=== PATIENT | female | born 1930 | race Caucasian/White ===

== ENCOUNTER 2018-07-27 16:25 | Emergency (ER) | payer MEDICARE, BC ==
[2018-07-27] MEDS ORDERED: Dextrose 5%-NS IV Solution 1000 ML 1,000 ML IV ONE (16:37)
[2018-07-27] MEDS ORDERED: D50W 50 ml Abboject IV ONE ×2 (16:38→17:02)
--- NOTE | 2018-07-27 17:01 | ERPHSYRPT ---
- History of Present Illness Time Seen by Provider: 07/27/18 16:45 Source: patient, family, EMS Exam Limitations: no limitations Patient Subjective Stated Complaint: Pt sister states "I went over to her house and there was some blood on the floor and she was laying on the floor. she had blood coming from the left side of her head and it looked like she hit her nose. ". Medics states "when we got there, she was alert and oriented x 3, skin pwd. Pt had small abrasion noted to left side of her head and her FSSBS was 48, we gave her a tube of oral glucose but could not get a line. Maria R stroke scale was negative, 12 lead unremarkable." Triage Nursing Assessment: Pt alert and oriented X 3, skin pwd. PT speech clear , pt having tremors and states she is cold. pt has good equal strength in all 4 extremeties. IV established immediately and pt was given an amp of D 50 and 5 %dextrose started at 100 mL/hr. Physician History: 87 y/o niddm, hypertensive white female on beta chad metoprolol presents to er via ems after report of pt passing out and falling onto her face. ems arrived at home and pt was alert and oriented but blood glucose of 48. pt was given oral glucose by ems. no iv line placed. pt denies headache but nose hurts. pt denies cp, abd pain, back pain and extremity pain. Occurred: just prior to arrival Reason for Fall: lightheaded Injuries/Pain Location: face Loss of Consciousness: no loss of consciousness Quality: aching Severity of Pain-Max: mild Severity of Pain-Current: mild Modifying Factors: Improves With: nothing Associated Symptoms (Fall): lightheadedness, No abdominal pain, No back pain, No confusion, No chest pain, No dizziness, No extremity injury, No headache, No muscle spasms, No nausea, No neck pain, No ringing in ears, No seizures, No shortness of breath, No slurred speech, No trouble walking, No vomiting, No vision changes Allergies/Adverse Reactions: No Known Drug Allergies Allergy (Verified 08/09/16 09:23) Home Medications: Aspirin 81 mg PO DAILY 08/20/14 [History] Glyburide,Micronized [Glyburide Micronized] 6 mg PO DAILY 08/20/14 [History] Isosorbide Mononitrate [Isosorbide Mononitrate ER] 60 mg PO DAILY 08/20/14 [ History] Pioglitazone 30 mg [Actos 30 MG] 30 mg PO QHS 10/05/15 [History] Ergocalciferol (Vitamin D2) [Vitamin D2] 2,000 unit PO UD 08/15/16 [History] Allopurinol 100 mg [Zyloprim 100 mg] 100 mg PO DAILY 07/27/18 [History] Ferrous Sulfate 325 mg PO TID 07/27/18 [History] HydrALAzine HCL 25 MG TAB [Apresoline 25 MG TABLET] 25 mg PO TID 07/27/18 [History] Metoprolol Tartrate [Lopressor] 50 mg PO BID 07/27/18 [History] Olmesartan/Amlodipin/Hcthiazid [Tribenzor 40-10-25 mg Tablet] 1 each PO DAILY [History] Rosuvastatin Calcium [Crestor] 10 mg PO HS 07/27/18 [History] Sodium Bicarbonate 650 mg PO DAILY 07/27/18 [History] Hx Tetanus, Diphtheria Vaccination/Date Given: No Hx Influenza Vaccination/Date Given: No Hx Pneumococcal Vaccination/Date Given: No Immunizations Up to Date: Yes - Review of Systems Constitutional: No Symptoms, No Fever, No Chills Eyes: No Symptoms, No Discharge, No Eye Pain Ears, Nose, & Throat: No Symptoms, Other (bruised, tender swollen nasal bridge) Respiratory: No Symptoms, No Cough, No Dyspnea, No Dyspnea on Exertion (MARRERO), No Stridor, No Wheezing Cardiac: No Symptoms, No Chest Pain, No Palpitations, No Syncope Abdominal/Gastrointestinal: No Symptoms, No Abdominal Pain, No Nausea, No Vomiting, No Diarrhea Genitourinary Symptoms: No Symptoms, No Dysuria, No Frequency, No Hematuria, No Hesitancy Musculoskeletal: Fall, Injury, No Back Pain, No Neck Pain Skin: No Symptoms Neurological: No Symptoms, No Dizziness, No Headache, No Seizure, No Speech Changes Psychological: No Symptoms, No Alcohol Abuse, No Drug Abuse, No Anxiety Endocrine: No Symptoms Hematologic/Lymphatic: No Symptoms Immunological/Allergic: No Symptoms All Other Systems: Reviewed and Negative - Past Medical History Pertinent Past Medical History: Yes Neurological History: No Pertinent History ENT History: No Pertinent History Cardiac History: Myocardial Infarction (HI) Respiratory History: No Pertinent History Endocrine Medical History: Adrenal Insufficiency, Diabetes Type II Musculoskeletal History: Osteoarthritis GI Medical History: Colitis, GERD, Other History: Renal Disease Psycho-Social History: No Pertinent History Female Reproductive Disorders: No Pertinent History Other Medical History: Pt has been going to kidney doctors, last check up the doctor stated her kidneys were working fine. - Past Surgical History Past Surgical History: Yes Neuro Surgical History: No Pertinent History Cardiac: No Pertinent History Respiratory: No Pertinent History Gastrointestinal: Cholecystectomy Genitourinary: No Pertinent History Musculoskeletal: No Pertinent History Female Surgical History: Hysterectomy Other Surgical History: pt states she had skin cancer removed off her face, hysterectomy, and had an HI during a colonoscopy in the past - Social History Smoking Status: Never smoker Exposure to second hand smoke: Yes Drug Use: none Patient Lives Alone: Yes - Female History Hx Now: No - Nursing Vital Signs Nursing Vital Signs: Initial Vital Signs Temperature 97.3 F 07/27/18 16:32 Pulse Rate 64 07/27/18 16:32 Respiratory Rate 18 07/27/18 16:32 Blood Pressure 180/54 07/27/18 16:32 O2 Sat by Pulse Oximetry 98 07/27/18 16:32 Pain Scale Pain Intensity 0 - Harriet Coma Score Best Eye Response (Harriet): (4) open spontaneously Best Verbal Response (Harriet): (5) oriented Best Motor Response (Mingo): (6) obeys commands Mingo Total: 15 - Physical Exam General Appearance: no apparent distress, alert, anxiety Head Injury: contusions, tenderness (nasal bridge; straight), No active bleeding , No Tillman's Sign Eye Exam: PERRL/EOMI, eyes nml inspection ENT Exam: airway nml, evidence of ENT injury, No dental injury, No clear fluid ( ears), No clear fluid (nose) Neck Exam: supple, trachea midline, full range of motion, normal alignment, normal inspection, No focal neuro deficit, No limited range of motion, No muscle spasm, No paraspinous muscle tender, No pain on movement of neck, No tenderness Respiratory/Chest Exam: normal breath sounds, No chest tenderness, No respiratory distress, No decreased breath sounds, No rhonchi, No wheezing, No accessory muscle use, No rib tenderness Cardiovascular Exam: normal heart sounds, regular rate/rhythm Gastrointestinal Exam: soft, normal bowel sounds, No tenderness, No guarding, No rebound Rectal Exam: not done Back Exam: normal inspection, normal range of motion, No CVA tenderness, No vertebral tenderness Extremity Exam: normal inspection, normal range of motion, capillary refill <3 sec, pelvis stable Neurologic Exam: alert, oriented x 3, cooperative, event av operator II-XII nml as tested, normal mood/affect, nml cerebellar function, nml station & gait Skin Exam: normal color, warm, dry SpO2 Interpretation: normal SpO2: 98 Oxygen Delivery: Room Air - Course Nursing assessment & vital signs reviewed: Yes EKG Interpreted by Me: RATE (60), Sinus Rhythm, NORMAL AXIS, NORMAL INTERVALS, NORMAL QRS, Non-specific ST Changes Ordered Tests: Active Orders 24 hr Category Date Time Status Accucheck STAT Care 07/27/18 17:01 Active Patient Services Clerk STAT Care 07/27/18 17:02 Active Clean Catch Urine Specimen STAT Care 07/27/18 17:01 Active EKG-ER Only STAT Care 07/27/18 17:01 Active IV Insertion STAT Care 07/27/18 17:01 Active FACIAL BONES WO CONTRAST [CT] Stat Exams 07/27/18 17:03 Completed HEAD WITHOUT CONTRAST [CT] Stat Exams 07/27/18 17:01 Completed CBC W DIFF Stat Lab 07/27/18 17:26 Completed CMP Stat Lab 07/27/18 17:26 Completed CULTURE,URINE Stat Lab 07/27/18 18:06 Received UA W/ MICROSCOPIC Stat Lab 07/27/18 18:06 Completed Medication Summary Generic Name Dose Route Start Last Admin Trade Name Freq PRN Reason Stop Dose Admin Dextrose/Sodium Chloride 1,000 mls @ 100 mls/hr 07/27/18 17:30 07/27/18 17:12 Dextrose 5%-Ns Iv Solution 1000 Ml IV 08/26/18 17:29 100 mls/hr .Q10H BRYCE Infusion Ceftriaxone Sodium/Dextrose 1 g in 50 mls @ 100 mls/hr 07/27/18 21:02 21:22 Rocephin 1 Gm-D5w 50 Ml Bag IV 07/27/18 21:31 Infused STAT STA Infusion Discontinued Medications Generic Name Dose Route Start Last Admin Trade Name Freq PRN Reason Stop Dose Admin Dextrose Confirm 07/27/18 16:38 D50w 50 Ml Abboject Administered 07/27/18 16:39 Dose 50 ml IV .STK-MED ONE Dextrose 25 ml 07/27/18 17:02 07/27/18 17:07 D50w 50 Ml Abboject IV 07/27/18 17:03 25 ml STAT ONE Administration Dextrose/Sodium Chloride Confirm 07/27/18 16:37 Dextrose 5%-Ns Iv Solution 1000 Ml Administered 07/27/18 16:38 Dose 1,000 mls @ ud IV .STK-MED ONE Ceftriaxone Sodium/Dextrose Confirm 07/27/18 21:11 Rocephin 1 Gm-D5w 50 Ml Bag Administered 07/27/18 21:12 Dose 1 g in 50 mls @ ud IV .STK-MED ONE Lab/Rad Data: Laboratory Result Diagrams 07/27/18 17:26 07/27/18 17:26 Laboratory Results 07/27/18 07/27/18 07/27/18 Range/Units 18:06 17:26 17:26 WBC 8.8 (4.0-10.5) K/mm3 RBC 3.18 L (4.1-5.4) M/mm3 Hgb 10.5 L (12.0-16.0) gm/dl Hct 32.3 L (35-47) % MCV 101.6 H (78-100) fl MCH 33.0 H (26-32) pg MCHC 32.5 (32-36) g/dl RDW 13.9 (11.5-14.0) % Plt Count 162 (150-450) K/mm3 MPV 11.0 H (6-9.5) fl Gran % 82.4 H (36.0-66.0) % Eos # (Auto) 0.10 (0-0.5) Absolute Lymphs (auto) 0.90 L (1.0-4.6) Absolute Monos (auto) 0.51 (0.0-1.3) Lymphocytes % 10.2 L (24.0-44.0) % Monocytes % 5.8 (0.0-12.0) % Eosinophils % 1.1 (0.00-5.0) % Basophils % 0.5 (0.0-0.4) % Absolute Granulocytes 7.24 H (1.4-6.9) Basophils # 0.04 (0-0.4) Sodium 140 (137-145) mmol/L Potassium 4.6 (3.5-5.1) mmol/L Chloride 113 H (98-107) mmol/L Carbon Dioxide 15 L* (22-30) mmol/L Anion Gap 17.1 H (5-15) MEQ/L BUN 70 H (7-17) mg/dL Creatinine 2.05 H (0.52-1.04) mg/dL Estimated GFR 24.3 ML/MIN Glucose 267 H (74-106) mg/dL Calcium 8.8 (8.4-10.2) mg/dL Total Bilirubin 0.20 (0.2-1.3) mg/dL AST 21 (14-36) U/L ALT 15 (0-35) U/L Alkaline Phosphatase 100 (38-126) U/L Serum Total Protein 6.5 (6.3-8.2) g/dL Albumin 3.8 (3.5-5.0) g/dL Ur Collection Type CATH Urine Color YELLOW (YELLOW) Urine Appearance HAZY (CLEAR) Urine pH 5.0 (5-6) Ur Specific [place] 1.015 (1.005-1.025) Urine Protein 30 (Negative) Urine Ketones NEGATIVE (NEGATIVE) Urine Blood NEGATIVE (0-5) [place]/ul Urine Nitrite NEGATIVE (NEGATIVE) Urine Bilirubin NEGATIVE (NEGATIVE) Urine Urobilinogen NORMAL (0-1) mg/dL Ur Leukocyte Esterase 1+ (NEGATIVE) Urine Microscopic RBC 2-5 (0-2) /HPF Urine Microscopic WBC 5-10 (0-5) /HPF Ur Epithelial Cells MODERATE (FEW) /HPF Amorphous Crystals MANY (NEGATIVE) /HPF Urine Bacteria MODERATE (NEGATIVE) /HPF Urine Mucus SLIGHT (NEGATIVE) /HPF Urine Culture Reflexed YES (NO) Urine Glucose 100 (NEGATIVE) mg/dL Specimen Received 07/27/[address] scan head and face reveal no acute process - Progress Progress: improved, re-examined Progress Note: 07/27/18 21:24 pt moved herself from bed to bedside commode with ease, no dizziness. pts vss. pts repeat blood glucose is 187. pt states she feels pretty. 07/27/18 21:34 pt wants to go home. sister is willing to take pt to her home to observe. pt has not eaten since this am. will give meal now. if pt julee well and vss will discharge to home Counseled pt/family regarding: lab results, diagnosis, need for follow-up, rad results - Departure Time of Disposition: 21:37 Departure Disposition: Home Clinical Impression: Hypoglycemia, UTI (urinary tract infection) Condition: Stable Critical Care Time: No Referrals: MARLO BROOKS MD [Primary Care Provider] - Additional Instructions: drink plenty of fluids. monitor your blood glucose closely. do not take your diabetic medications unless you are eating well. call your primary doctor tomorrow for further management Prescriptions: Ciprofloxacin [Cipro 500 MG] 500 mg PO BID #14 tablet
[2018-07-27 17:30] LABS: BASOPHIL % 0.5 % (0.0-0.4); Basophil (Absolute #) 0.04 (0-0.4); Eosinophil % 1.1 % (0.00-5.0); Granulocyte Absolute (ANC) 7.24 (1.4-6.9); Granulocytes % 82.4 % (36.0-66.0); Hematocrit 32.3 % (35-47); Hemoglobin 10.5 gm/dl (12.0-16.0); Lymphocytes % 10.2 % (24.0-44.0); Mean Cell Volume 101.6 fl (78-100); Mean Corpuscular Hgb Concent. 32.5 g/dl (32-36); Monocyte (Absolute #) 0.51 (0.0-1.3); Monocytes % 5.8 % (0.0-12.0); Platelet Count 162 K/mm3 (150-450); Red Blood Count 3.18 M/mm3 (4.1-5.4); Red Cell Distribution Width 13.9 % (11.5-14.0); White Blood Count 8.8 K/mm3 (4.0-10.5)
[2018-07-27] MEDS ORDERED: Dextrose 5%-NS IV Solution 1000 ML 1,000 ML IV SCH (17:30)
[2018-07-27 17:43] LABS: ALBUMIN 3.8 g/dL (3.5-5.0); ANION GAP 17.1 MEQ/L (5-15); BILIRUBIN,TOTAL 0.2 mg/dL (0.2-1.3); Calcium 8.8 mg/dL (8.4-10.2); Creatinine 1 2.05 mg/dL (0.52-1.04); Potassium 4.6 mmol/L (3.5-5.1); Total Protein 6.5 g/dL (6.3-8.2)
[2018-07-27 18:55] LABS: Appearance HAZY (CLEAR)
[2018-07-27 18:56] LABS: Amourphous Crystal MANY /HPF (NEGATIVE); Bacteria MODERATE /HPF (NEGATIVE); Bilirubin NEGATIVE (NEGATIVE); Blood NEGATIVE Ery/ul (0-5); Epithelial Cells MODERATE /HPF (FEW); Glucose 100 mg/dL (NEGATIVE); Ketones NEGATIVE (NEGATIVE); Leukocyte Esterase 1+ (NEGATIVE); Mucus SLIGHT /HPF (NEGATIVE); Nitrite NEGATIVE (NEGATIVE); Protein,Urine Dip 30 (Negative); Specific Gravity 1.015 (1.005-1.025); Urobilinogen NORMAL mg/dL (0-1)
[2018-07-27 20:05] VITALS: BP 182/60; PULSE 59; O2SAT 98
--- NOTE | 2018-07-27 20:25 | XRAY ---
Indication: Pain following syncopal fall. Multiple contiguous axial images obtained through the head without contrast. Comparison: None Images through the base of the brain slightly degraded by motion artifact. Age-appropriate global atrophy. No acute intracranial hemorrhage, abnormal extra-axial fluid collection, or mass effect. Fourth ventricle is midline without hydrocephalus. Kirby-white matter differentiation preserved. Bony calvarium intact. Minimal mucosal thickening of the both maxillary sinuses with tiny left maxillary sinus fluid leveling. Mastoid air cells are clear. CT facial bones reported separately. Impression: Minimal motion artifact. No acute intracranial abnormalities. Minimal paranasal sinus disease. Comment: Preliminary interpretation was made by [facility]. No critical discrepancy. CTDI 61.17
--- NOTE | 2018-07-27 20:29 | XRAY ---
Indication: Nose pain following syncopal fall. Multiple contiguous axial images obtained through the facial bones. Sagittal and coronal reformatted images obtained. Comparison: None No acute fracture, suspicious bony lesions, or radiopaque foreign body. Orbits including roof, peñaloza, and floors are intact. Minimal mucosal thickening of both maxillary sinuses with tiny left maxillary sinus fluid leveling. Remaining paranasal sinuses and nasal passages are clear. Mild nasal septal deviation to the left. Previous bilateral cataract surgery and mild bilateral scattered carotid calcifications. Remaining visualized noncontrasted soft tissues unremarkable. Underlying cervical spine intact with mild degenerative changes. CT head reported separately. Impression: 1. Negative acute fracture. 2. Incidental paranasal sinus disease and nasal septal deviation. Comment: Preliminary interpretation was made by [facility]. No critical discrepancy. CTDI 59.47
[2018-07-27] MEDS ORDERED: ROCEPHIN 1 Gm-D5w 50 ml Bag** 1 G/50 ML IVPB IV STA (21:02)
[2018-07-27] MEDS ORDERED: ROCEPHIN 1 Gm-D5w 50 ml Bag** 1 G/50 ML IVPB IV ONE (21:11)
== END 2018-07-27 22:33 | disposition home or self-care (01) ==
LOC: ED 16:25
DX: E11.649 Type 2 diabetes mellitus with hypoglycemia without coma (principal); R42 Dizziness and giddiness; J34.89 Other specified disorders of nose and nasal sinuses; Z79.899 Other long term (current) drug therapy; W19.XXXA Unspecified fall, initial encounter; Y92.009 Unspecified place in unspecified non-institutional (private) residence as the place of occurrence of the external cause
CPT/HCPCS: 36000; 36415; 70450; 70486; 80053; 81000; 82962; 85025; 87086; 93005; 93041; 96360; 96361; 96365; 96374; 99285; P9612; J0696

== ENCOUNTER 2018-08-03 07:58 | Inpatient (IN) | payer MEDICARE, BC ==
--- NOTE | 2018-08-03 08:19 | ERPHSYRPT ---
- History of Present Illness Time Seen by Provider: 08/03/18 08:12 Source: patient, EMS Exam Limitations: no limitations Physician History: The patient is an 87-year-old female brought in by ambulance from home where she complains of being weak since yesterday. EMS gave 1 amp of dextrose because pt's BG was 70. She denies pain. She denies shortness of breath. She denies nausea or vomiting today. Yesterday she was nauseated. She hasn't had a bowel movement in several days. She is chilled. She denies cough. Last Saturday she fell at home and was seen in the ER. She was sent home on the same day. She did not follow-up with primary medical doctor. Her past medical history significant for CAD, cardiac stent, hypertension, gout, diabetes, kidney stent, hysterectomy, and cholecystectomy. Timing/Duration: yesterday, gradual onset, worse Severity: severe Modifying Factors: Improves With: nothing Associated Symptoms: nausea, chills, weakness, No abdominal pain, No shortness of breath, No cough, No chest pain, No loss of appetite, No syncope Allergies/Adverse Reactions: No Known Drug Allergies Allergy (Verified 08/03/18 08:15) Home Medications: Aspirin 81 mg PO DAILY 08/20/14 [History] Glyburide,Micronized [Glyburide Micronized] 6 mg PO DAILY 08/20/14 [History] Isosorbide Mononitrate [Isosorbide Mononitrate ER] 60 mg PO DAILY 08/20/14 [ History] Pioglitazone 30 mg [Actos 30 MG] 30 mg PO QHS 10/05/15 [History] Ergocalciferol (Vitamin D2) [Vitamin D2] 2,000 unit PO UD 08/15/16 [History] Allopurinol 100 mg [Zyloprim 100 mg] 100 mg PO DAILY 07/27/18 [History] Ferrous Sulfate 325 mg PO TID 07/27/18 [History] HydrALAzine HCL 25 MG TAB [Apresoline 25 MG TABLET] 25 mg PO TID 07/27/18 [History] Metoprolol Tartrate [Lopressor] 50 mg PO BID 07/27/18 [History] Olmesartan/Amlodipin/Hcthiazid [Tribenzor 40-10-25 mg Tablet] 1 each PO DAILY [History] Rosuvastatin Calcium [Crestor] 10 mg PO HS 07/27/18 [History] Sodium Bicarbonate 650 mg PO DAILY 07/27/18 [History] Hx Tetanus, Diphtheria Vaccination/Date Given: No Hx Influenza Vaccination/Date Given: No Hx Pneumococcal Vaccination/Date Given: No - Review of Systems Constitutional: Chills, Weakness Eyes: No Symptoms Ears, Nose, & Throat: No Symptoms Respiratory: No Cough, No Dyspnea Cardiac: No Chest Pain, No Edema, No Syncope Abdominal/Gastrointestinal: No Abdominal Pain, No Nausea, No Vomiting, No Diarrhea Genitourinary Symptoms: No Dysuria Musculoskeletal: No Back Pain, No Neck Pain Skin: No Rash Neurological: No Dizziness, No Focal Weakness, No Sensory Changes Psychological: No Symptoms Endocrine: No Symptoms Hematologic/Lymphatic: No Symptoms Immunological/Allergic: No Symptoms All Other Systems: Reviewed and Negative - Past Medical History Pertinent Past Medical History: Yes Neurological History: No Pertinent History ENT History: No Pertinent History Cardiac History: Myocardial Infarction ([place]) Respiratory History: No Pertinent History Endocrine Medical History: Adrenal Insufficiency, Diabetes Type II Musculoskeletal History: Osteoarthritis GI Medical History: Colitis, GERD, Other History: Renal Disease Psycho-Social History: No Pertinent History Female Reproductive Disorders: No Pertinent History Other Medical History: Pt has been going to kidney doctors, last check up the doctor stated her kidneys were working fine. - Past Surgical History Past Surgical History: Yes Neuro Surgical History: No Pertinent History Cardiac: No Pertinent History Respiratory: No Pertinent History Gastrointestinal: Cholecystectomy Genitourinary: No Pertinent History Musculoskeletal: No Pertinent History Female Surgical History: Hysterectomy Other Surgical History: pt states she had skin cancer removed off her face, hysterectomy, and had an [place] during a colonoscopy in the past - Social History Smoking Status: Never smoker Exposure to second hand smoke: Yes Drug Use: none Patient Lives Alone: Yes - Nursing Vital Signs Nursing Vital Signs: Initial Vital Signs Temperature 93.3 F 08/03/18 07:59 Pulse Rate 68 08/03/18 07:59 Respiratory Rate 20 08/03/18 07:59 Blood Pressure 197/79 08/03/18 07:59 O2 Sat by Pulse Oximetry 99 08/03/18 07:59 Pain Scale Pain Intensity 0 - Physical Exam General Appearance: moderate distress Eye Exam: PERRL/EOMI, eyes nml inspection Ears, Nose, Throat Exam: normal ENT inspection, TMs normal, pharynx normal, moist mucous membranes Neck Exam: normal inspection, non-tender, supple, full range of motion Respiratory Exam: normal breath sounds, lungs clear, No respiratory distress Cardiovascular Exam: regular rate/rhythm, normal heart sounds, normal peripheral pulses Gastrointestinal/Abdomen Exam: soft, normal bowel sounds, No tenderness, No mass Pelvic Exam: not done Rectal Exam: not done Back Exam: normal inspection, normal range of motion, No CVA tenderness, No vertebral tenderness Extremity Exam: normal inspection, normal range of motion, pelvis stable Neurologic Exam: alert, oriented x 3, cooperative, normal mood/affect, nml cerebellar function, nml station & gait, sensation nml, No motor deficits Skin Exam: normal color, other (cool), No warm Lymphatic Exam: No adenopathy SpO2 Interpretation: normal Oxygen Delivery: Room Air - Course EKG Interpreted by Me: RATE, Sinus Rhythm, NORMAL AXIS, NORMAL INTERVALS, NORMAL QRS, NORMAL ST-T, Other (no change comp to EKG 07/27/18.) - Radiology Exams Chest X-ray Interpretation: Interpreted by me, Negative (comp 2V chest 08/09/16.) Ordered Tests: Active Orders 24 hr Category Date Time Status Cath for Specimen-Straight STAT Care 08/03/18 08:25 Active EKG-ER Only STAT Care 08/03/18 08:24 Active IV Insertion STAT Care 08/03/18 08:24 Active 1800 Calorie ADA Diet 08/03/18 Lunch Active CHEST 1 VIEW (PORTABLE) Stat Exams 08/03/18 08:40 Completed BLOOD CULTURE Stat Lab 08/03/18 09:05 Received CBC W DIFF Stat Lab 08/03/18 08:30 Completed CMP Stat Lab 08/03/18 08:24 Completed CULTURE,URINE Stat Lab 08/03/18 08:54 Received LIPASE Stat Lab 08/03/18 08:24 Completed Lactic Acid Stat Lab 08/03/18 08:30 Completed TROPONIN Q3H Lab 08/03/18 08:30 Completed TROPONIN Q3H Lab 08/03/18 11:30 Ordered TROPONIN Q3H Lab 08/03/18 14:30 Ordered TROPONIN Q3H Lab 08/03/18 17:30 Ordered TROPONIN Q3H Lab 08/03/18 20:30 Ordered UA W/ MICROSCOPIC Stat Lab 08/03/18 08:54 Completed Medication Summary Discontinued Medications Generic Name Dose Route Start Last Admin Trade Name Danielle PRN Reason Stop Dose Admin Sodium Chloride 500 mls @ 999 mls/hr 08/03/18 08:24 08/03/18 08:33 Sodium Chloride 0.9% 1000 Ml IV 08/03/18 08:54 999 mls/hr .Q31M STA Administration Sodium Chloride Confirm 08/03/18 08:29 Sodium Chloride 0.9% 1000 Ml Administered 08/03/18 08:30 Dose 1,000 mls @ ud .ROUTE .STK-MED ONE Ondansetron HCl 4 mg 08/03/18 08:24 08/03/18 08:34 Zofran 4 Mg/2 Ml Vial IV 08/03/18 08:25 4 mg STAT ONE Administration Ondansetron HCl Confirm 08/03/18 08:29 Zofran 4 Mg/2 Ml Vial Administered 08/03/18 08:30 Dose 4 mg .ROUTE .STK-MED ONE Lab/Rad Data: Laboratory Result Diagrams 08/03/18 08:30 08/03/18 08:24 Laboratory Results 08/03/18 08/03/18 08/03/18 Range/Units 08:54 08:30 08:30 WBC (4.0-10.5) K/mm3 RBC (4.1-5.4) M/mm3 Hgb (12.0-16.0) gm/dl Hct (35-47) % MCV (78-100) fl MCH (26-32) pg MCHC (32-36) g/dl RDW (11.5-14.0) % Plt Count (150-450) K/mm3 MPV (6-9.5) fl Gran % (36.0-66.0) % Eos # (Auto) (0-0.5) Absolute Lymphs (auto) (1.0-4.6) Absolute Monos (auto) (0.0-1.3) Lymphocytes % (24.0-44.0) % Monocytes % (0.0-12.0) % Eosinophils % (0.00-5.0) % Basophils % (0.0-0.4) % Absolute Granulocytes (1.4-6.9) Basophils # (0-0.4) Sodium (137-145) mmol/L Potassium (3.5-5.1) mmol/L Chloride (98-107) mmol/L Carbon Dioxide (22-30) mmol/L Anion Gap (5-15) MEQ/L BUN (7-17) mg/dL Creatinine (0.52-1.04) mg/dL Estimated GFR ML/MIN Glucose (74-106) mg/dL Lactic Acid 0.8 (0.4-2.0) Calcium (8.4-10.2) mg/dL Total Bilirubin (0.2-1.3) mg/dL AST (14-36) U/L ALT (0-35) U/L Alkaline Phosphatase (38-126) U/L Troponin I < 0.012 (0.000-0.034) ng/mL Serum Total Protein (6.3-8.2) g/dL Albumin (3.5-5.0) g/dL Lipase (23-300) U/L Ur Collection Type CATH Urine Color YELLOW (YELLOW) Urine Appearance CLOUDY (CLEAR) Urine pH 5.0 (5-6) Ur Specific [place] 1.015 (1.005-1.025) Urine Protein 300 (Negative) Urine Ketones NEGATIVE (NEGATIVE) Urine Blood NEGATIVE (0-5) [place]/ul Urine Nitrite NEGATIVE (NEGATIVE) Urine Bilirubin NEGATIVE (NEGATIVE) Urine Urobilinogen NORMAL (0-1) mg/dL Ur Leukocyte Esterase 2+ (NEGATIVE) Urine Microscopic RBC 0-2 (0-2) /HPF Urine Microscopic WBC 2-5 (0-5) /HPF Ur Epithelial Cells MODERATE (FEW) /HPF Amorphous Crystals MODERATE (NEGATIVE) /HPF Urine Bacteria MODERATE (NEGATIVE) /HPF Urine Mucus SLIGHT (NEGATIVE) /HPF Urine Culture Reflexed YES (NO) Urine Glucose NEGATIVE (NEGATIVE) mg/dL 08/03/18 08/03/18 Range/Units 08:30 08:24 WBC 9.9 (4.0-10.5) K/mm3 RBC 3.08 L (4.1-5.4) M/mm3 Hgb 10.3 L (12.0-16.0) gm/dl Hct 31.1 L (35-47) % MCV 101.0 H (78-100) fl MCH 33.4 H (26-32) pg MCHC 33.1 (32-36) g/dl RDW 14.2 H (11.5-14.0) % Plt Count 156 (150-450) K/mm3 MPV 11.0 H (6-9.5) fl Gran % 82.1 H (36.0-66.0) % Eos # (Auto) 0.02 (0-0.5) Absolute Lymphs (auto) 0.85 L (1.0-4.6) Absolute Monos (auto) 0.89 (0.0-1.3) Lymphocytes % 8.6 L (24.0-44.0) % Monocytes % 9.0 (0.0-12.0) % Eosinophils % 0.2 (0.00-5.0) % Basophils % 0.1 (0.0-0.4) % Absolute Granulocytes 8.15 H (1.4-6.9) Basophils # 0.01 (0-0.4) Sodium 141 (137-145) mmol/L Potassium 4.3 (3.5-5.1) mmol/L Chloride 112 H (98-107) mmol/L Carbon Dioxide 15 L* (22-30) mmol/L Anion Gap 17.6 H (5-15) MEQ/L BUN 70 H (7-17) mg/dL Creatinine 3.02 H (0.52-1.04) mg/dL Estimated GFR 15.6 ML/MIN Glucose 113 H (74-106) mg/dL Lactic Acid (0.4-2.0) Calcium 9.4 (8.4-10.2) mg/dL Total Bilirubin 0.30 (0.2-1.3) mg/dL AST 25 (14-36) U/L ALT 16 (0-35) U/L Alkaline Phosphatase 91 (38-126) U/L Troponin I (0.000-0.034) ng/mL Serum Total Protein 7.4 (6.3-8.2) g/dL Albumin 4.2 (3.5-5.0) g/dL Lipase 78 (23-300) U/L Ur Collection Type Urine Color (YELLOW) Urine Appearance (CLEAR) Urine pH (5-6) Ur Specific [place] (1.005-1.025) Urine Protein (Negative) Urine Ketones (NEGATIVE) Urine Blood (0-5) [place]/ul Urine Nitrite (NEGATIVE) Urine Bilirubin (NEGATIVE) Urine Urobilinogen (0-1) mg/dL Ur Leukocyte Esterase (NEGATIVE) Urine Microscopic RBC (0-2) /HPF Urine Microscopic WBC (0-5) /HPF Ur Epithelial Cells (FEW) /HPF Amorphous Crystals (NEGATIVE) /HPF Urine Bacteria (NEGATIVE) /HPF Urine Mucus (NEGATIVE) /HPF Urine Culture Reflexed (NO) Urine Glucose (NEGATIVE) mg/dL - Progress Progress: improved Discussed with : Jim Will see patient in: hospital (observation) Counseled pt/family regarding: lab results, diagnosis, rad results - Departure Time of Disposition: 11:01 Departure Disposition: Observation (per Dr Brooks) Clinical Impression: Weakness, Chronic renal insufficiency Condition: Stable Critical Care Time: No Referrals: MARLO BROOKS MD [Primary Care Provider] -
[2018-08-03] MEDS ORDERED: Zofran 4 MG/2 ML VIAL IV ONE (08:24)
[2018-08-03] MEDS ORDERED: Zofran 4 MG/2 ML VIAL ONE (08:29)
[2018-08-03] MEDS ORDERED: Sodium Chloride 0.9% 1000 ML 1,000 ML ONE (08:29)
[2018-08-03 08:34] LABS: BASOPHIL % 0.1 % (0.0-0.4); Basophil (Absolute #) 0.01 (0-0.4); Eosinophil % 0.2 % (0.00-5.0); Eosinophil (Absolute #) 0.02 (0-0.5); Granulocyte Absolute (ANC) 8.15 (1.4-6.9); Granulocytes % 82.1 % (36.0-66.0); Hematocrit 31.1 % (35-47); Hemoglobin 10.3 gm/dl (12.0-16.0); Lymphocyte (Absolute #) 0.85 (1.0-4.6); Lymphocytes % 8.6 % (24.0-44.0); Mean Corpuscular Hemoglobin 33.4 pg (26-32); Mean Corpuscular Hgb Concent. 33.1 g/dl (32-36); Monocyte (Absolute #) 0.89 (0.0-1.3); Platelet Count 156 K/mm3 (150-450); Red Blood Count 3.08 M/mm3 (4.1-5.4); Red Cell Distribution Width 14.2 % (11.5-14.0); White Blood Count 9.9 K/mm3 (4.0-10.5)
[2018-08-03 08:37] LABS: ALBUMIN 4.2 g/dL (3.5-5.0); ANION GAP 17.6 MEQ/L (5-15); BILIRUBIN,TOTAL 0.3 mg/dL (0.2-1.3); Calcium 9.4 mg/dL (8.4-10.2); Creatinine 1 3.02 mg/dL (0.52-1.04); Potassium 4.3 mmol/L (3.5-5.1); Total Protein 7.4 g/dL (6.3-8.2)
[2018-08-03 10:11] LABS: Appearance CLOUDY (CLEAR); Glucose NEGATIVE (NEGATIVE); Ketones NEGATIVE (NEGATIVE); Leukocyte Esterase 2+ (NEGATIVE); Nitrite NEGATIVE (NEGATIVE); Protein,Urine Dip 300 (Negative); Specific Gravity 1.015 (1.005-1.025)
[2018-08-03 10:12] LABS: Amourphous Crystal MODERATE /HPF (NEGATIVE); Bacteria MODERATE /HPF (NEGATIVE); Bilirubin NEGATIVE (NEGATIVE); Blood NEGATIVE Ery/ul (0-5); Epithelial Cells MODERATE /HPF (FEW); Mucus SLIGHT /HPF (NEGATIVE); RBC 0-2 /HPF (0-2); Urobilinogen NORMAL mg/dL (0-1)
--- NOTE | 2018-08-03 10:52 | XRAY ---
Indication: Weakness. Low blood sugar. Comparison: August 09, 2016. Portable chest slightly less inflated and remains clear. Heart and mediastinal structures within normal limits for AP portable technique. Bony thorax intact again with mild osteopenia and degenerative changes. No new/acute findings.
[2018-08-03] MEDS: Sodium Chloride 0.9% 1000 ML 1,000 ML IV SCH (11:30)
[2018-08-03] MEDS ORDERED: Zofran 4 MG/2 ML VIAL IV PRN (11:47)
[2018-08-03] MEDS ORDERED: TYLENOL 325 MG PO PRN (11:47)
[2018-08-03] MEDS: ROCEPHIN 1 Gm-D5w 50 ml Bag** 1 G/50 ML IVPB IV SCH (13:22)
[2018-08-03] MEDS: ENOXAPARIN SODIUM SQ SCH (15:31)
[2018-08-03] MEDS: Benicar 20 MG PO SCH (15:32)
[2018-08-03] MEDS: Apresoline 25 MG TABLET PO SCH ×2 (15:32→21:25)
[2018-08-03] MEDS: ECOTRIN 81 MG PO SCH (15:32)
[2018-08-03] MEDS: Imdur 60MG PO SCH (15:32)
[2018-08-03] MEDS: NORVASC 5 MG PO SCH (15:33)
[2018-08-03] MEDS: hydroDIURIL 25 MG PO SCH (15:33)
[2018-08-03] MEDS: ZYLOPRIM 100 MG PO SCH (15:33)
[2018-08-03] MEDS: Glynase 3 MG PO SCH (15:33)
[2018-08-03] MEDS: SODIUM BICARBONATE PO SCH (15:34)
[2018-08-03] MEDS: ZOCOR 20MG PO SCH (21:25)
[2018-08-03] MEDS: Actos 30 MG PO SCH (21:25)
[2018-08-03] MEDS: Lopressor 50 MG PO SCH (21:25)
[2018-08-03] MEDS ORDERED: NON-FORMULARY ITEM (Rosuvastatin Calcium [Crestor] 10 MG) PO SCH (22:00)
[2018-08-04 05:51] LABS: BASOPHIL % 0.4 % (0.0-0.4); Basophil (Absolute #) 0.03 (0-0.4); Eosinophil (Absolute #) 0.22 (0-0.5); Granulocyte Absolute (ANC) 4.93 (1.4-6.9); Granulocytes % 67.7 % (36.0-66.0); Hemoglobin 7.9 gm/dl (12.0-16.0); Lymphocyte (Absolute #) 1.14 (1.0-4.6); Lymphocytes % 15.7 % (24.0-44.0); Mean Cell Volume 105.5 fl (78-100); Mean Corpuscular Hemoglobin 33.3 pg (26-32); Mean Corpuscular Hgb Concent. 31.6 g/dl (32-36); Mean Platelet Volume 11.5 fl (6-9.5); Monocyte (Absolute #) 0.96 (0.0-1.3); Monocytes % 13.2 % (0.0-12.0); Platelet Count 143 K/mm3 (150-450); Red Blood Count 2.37 M/mm3 (4.1-5.4); White Blood Count 7.3 K/mm3 (4.0-10.5)
[2018-08-04 06:21] LABS: ANION GAP 13.8 MEQ/L (5-15); Calcium 8.2 mg/dL (8.4-10.2); Creatinine 1 2.83 mg/dL (0.52-1.04); Potassium 4.8 mmol/L (3.5-5.1)
[2018-08-04] MEDS: Sodium Chloride 0.9% 1000 ML 1,000 ML IV SCH ×3 (06:26→21:08)
[2018-08-04] MEDS: Glynase 3 MG PO SCH (08:16)
[2018-08-04] MEDS: NORVASC 5 MG PO SCH (09:28)
[2018-08-04] MEDS: Benicar 20 MG PO SCH (09:28)
[2018-08-04] MEDS: ROCEPHIN 1 Gm-D5w 50 ml Bag** 1 G/50 ML IVPB IV SCH (09:29)
[2018-08-04] MEDS: hydroDIURIL 25 MG PO SCH (09:29)
[2018-08-04] MEDS: Imdur 60MG PO SCH (09:29)
[2018-08-04] MEDS: ECOTRIN 81 MG PO SCH (09:29)
[2018-08-04] MEDS: ZYLOPRIM 100 MG PO SCH (09:29)
[2018-08-04] MEDS: ENOXAPARIN SODIUM SQ SCH (09:29)
[2018-08-04] MEDS: Lopressor 50 MG PO SCH ×2 (09:29→21:09)
[2018-08-04] MEDS: SODIUM BICARBONATE PO SCH (09:30)
[2018-08-04] MEDS ORDERED: GLYBURIDE MICRONIZED 6 MG PO SCH (10:00)
[2018-08-04] MEDS ORDERED: NON-FORMULARY ITEM (Sodium Bicarbonate 650 MG) PO SCH (10:00)
[2018-08-04] MEDS ORDERED: NON-FORMULARY ITEM (Aspirin [Aspirin] 81 MG) PO SCH (10:00)
[2018-08-04] MEDS ORDERED: HCTHIAZID PO SCH (10:00)
[2018-08-04] MEDS ORDERED: AMLODIPIN PO SCH (10:00)
[2018-08-04] MEDS ORDERED: OLMESARTAN PO SCH (10:00)
[2018-08-04] MEDS ORDERED: [UNRECOGNIZED DRUG - OTHER] PO SCH (10:00)
[2018-08-04] MEDS: Apresoline 25 MG TABLET PO SCH ×4 (10:12→21:09)
--- NOTE | 2018-08-04 12:17 | PCM.HP ---
History of Present Illness - Chief Complaint Chief Complaint: weakness; renal failure History of Present Illness: The patient is an 87-year-old female brought in by ambulance from home where she complains of being weak since yesterday. EMS gave 1 amp of dextrose because pt's BG was 70. She denies pain. She denies shortness of breath. She denies nausea or vomiting today. Yesterday she was nauseated. She hasn't had a bowel movement in several days. She is chilled. She denies cough. Last Saturday she fell at home and was seen in the ER. She was sent home on the same day. - Review of Systems Constitutional: Fatigue, Lethargy, Weakness, No Fever, No Chills Eyes: No Symptoms Ears, Nose, & Throat: No Symptoms Respiratory: No Cough, No Short Of Breath Cardiac: No Chest Pain, No Edema, No Syncope Abdominal/Gastrointestinal: No Abdominal Pain, No Nausea, No Vomiting, No Diarrhea Genitourinary Symptoms: No Dysuria Musculoskeletal: No Back Pain, No Neck Pain Skin: No Rash Neurological: No Dizziness, No Focal Weakness, No Sensory Changes Psychological: No Symptoms Endocrine: No Symptoms Hematologic/Lymphatic: No Symptoms Immunological/Allergic: No Symptoms Medications & Allergies Home Medications: Home Medication List Aspirin 81 mg PO DAILY 08/20/14 [History Confirmed 08/03/18] Glyburide,Micronized [Glyburide Micronized] 6 mg PO DAILY 08/20/14 [History Confirmed 08/03/18] Isosorbide Mononitrate [Isosorbide Mononitrate ER] 60 mg PO DAILY 08/20/14 [ History Confirmed 08/03/18] Pioglitazone 30 mg [Actos 30 MG] 30 mg PO QHS 10/05/15 [History Confirmed 08/03/18] Allopurinol 100 mg [Zyloprim 100 mg] 100 mg PO DAILY 07/27/18 [History Confirmed 08/03/18] Ciprofloxacin [Cipro 500 MG] 500 mg PO BID #14 tablet 07/27/18 [Rx Confirmed 08/03/18] HydrALAzine HCL 25 MG TAB [Apresoline 25 MG TABLET] 25 mg PO TID 07/27/18 [History Confirmed 08/03/18] Metoprolol Tartrate [Lopressor] 50 mg PO BID 07/27/18 [History Confirmed ] Olmesartan/Amlodipin/Hcthiazid [Tribenzor 40-10-25 mg Tablet] 1 each PO DAILY [History Confirmed 08/03/18] Rosuvastatin Calcium [Crestor] 10 mg PO HS 07/27/18 [History Confirmed 08/03/18] Sodium Bicarbonate 650 mg PO DAILY 07/27/18 [History Confirmed 08/03/18] Allergies/Adverse Reactions: Allergies Allergy/AdvReac Type Severity Reaction Status Date / Time cephalexin AdvReac Verified 08/03/18 15:28 dextromethorphan AdvReac Verified 08/03/18 15:28 [From Mucinex DM] [email or web address] [From Mucinex DM] AdvReac Verified 08/03/18 15:28 - Past Medical History Past Medical History: Yes Neurological History: No Pertinent History ENT History: No Pertinent History Cardiac History: Hypertension, Myocardial Infarction ([place]) Respiratory History: No Pertinent History Endocrine Medical History: Adrenal Insufficiency, Diabetes Type II Musculoskelatal History: Osteoarthritis GI Medical History: Colitis, GERD, Other History: Renal Disease Pyscho-Social History: No Pertinent History Reproductive Disorders: No Pertinent History Comment: Pt has been going to kidney doctors, last check up the doctor stated her kidneys were working fine. - Female History Hx Last Menstrual Period: N/A Are you now?: No - Past Surgical History Past Surgical History: Yes Neuro Surgical History: No Pertinent History Cardiac History: No Pertinent History Respiratory Surgery: No Pertinent History GI Surgical History: Cholecystectomy Genitourinary Surgical Hx: No Pertinent History Musculskeletal Surgical Hx: No Pertinent History Female Surgical History: Hysterectomy Other Surgical History: pt states she had skin cancer removed off her face, hysterectomy, and had an [place] during a colonoscopy in the past - Social History Smoking Status: Never smoker Exposure to second hand smoke: No Alcohol: None Drug Use: none - Physical Exam Vital Signs: Vital Signs - 24 hr Temp Pulse Resp BP Pulse Ox 08/04/18 11:21 98.2 F 71 18 153/60 98 08/04/18 07:35 99.4 F 77 18 116/55 92 L 08/04/18 04:20 98.7 F 69 20 142/60 97 08/03/18 23:38 99.2 F 71 18 122/56 96 09/16/18 19:31 98.8 F 86 18 154/62 97 08/03/18 17:04 99.6 F 82 19 188/88 97 Oxygen-Last 24 hours O2 Percentage 2 Liters = 28% O2 Percentage 2 Liters = 28% O2 Percentage 2 Liters = 28% O2 Percentage 2 Liters = 28% O2 Percentage 2 Liters = 28% General Appearance: no apparent distress, alert Neurologic Exam: alert, oriented x 3, cooperative, normal mood/affect, nml cerebellar function, nml station & gait, sensation nml, No motor deficits Eye Exam: PERRL/EOMI, eyes nml inspection Ears, Nose, Throat Exam: normal ENT inspection, TMs normal, pharynx normal, moist mucous membranes Neck Exam: normal inspection, non-tender, supple, full range of motion Respiratory Exam: normal breath sounds, lungs clear, No respiratory distress Cardiovascular Exam: regular rate/rhythm, normal heart sounds, normal peripheral pulses Gastrointestinal/Abdomen Exam: soft, normal bowel sounds, No tenderness, No mass Back Exam: normal inspection, normal range of motion, No CVA tenderness, No vertebral tenderness Extremity Exam: normal inspection, normal range of motion, pelvis stable Skin Exam: normal color, warm, dry, No rash Lymphatic Exam: No adenopathy Results - Labs Lab/Micro Results: Accuchecks Date 08/04/18 Date 08/04/18 Date 08/03/18 Time 04:00 Time 00:00 Time 20:00 Accucheck Value: 142 Accucheck Value: 56 Accucheck Value: 100 Accucheck Value: 170 Accucheck Value: 188 Lab Results-Last 24 Hours 08/03/18 08/03/18 08/03/18 Range/Units 05:50 08:00 11:35 WBC (4.0-10.5) K/mm3 RBC (4.1-5.4) M/mm3 Hgb (12.0-16.0) gm/dl Hct (35-47) % MCV (78-100) fl MCH (26-32) pg MCHC (32-36) g/dl RDW (11.5-14.0) % Plt Count (150-450) K/mm3 MPV (6-9.5) fl Gran % (36.0-66.0) % Eos # (Auto) (0-0.5) Absolute Lymphs (auto) (1.0-4.6) Absolute Monos (auto) (0.0-1.3) Lymphocytes % (24.0-44.0) % Monocytes % (0.0-12.0) % Eosinophils % (0.00-5.0) % Basophils % (0.0-0.4) % Absolute Granulocytes (1.4-6.9) Basophils # (0-0.4) Sodium (137-145) mmol/L Potassium (3.5-5.1) mmol/L Chloride (98-107) mmol/L Carbon Dioxide (22-30) mmol/L Anion Gap (5-15) MEQ/L BUN (7-17) mg/dL Creatinine (0.52-1.04) mg/dL Estimated GFR ML/MIN Glucose (74-106) mg/dL Hemoglobin A1c 5.57 (4.5-6.0) % Lactic Acid (0.4-2.0) Calcium (8.4-10.2) mg/dL Troponin I 0.016 < 0.012 (0.000-0.034) ng/mL 08/03/18 08/03/18 08/04/18 Range/Units 14:36 21:00 05:28 WBC 7.3 (4.0-10.5) K/mm3 RBC 2.37 L (4.1-5.4) M/mm3 Hgb 7.9 L (12.0-16.0) gm/dl Hct 25.0 L (35-47) % MCV 105.5 H (78-100) fl MCH 33.3 H (26-32) pg MCHC 31.6 L (32-36) g/dl RDW 14.0 (11.5-14.0) % Plt Count 143 L (150-450) K/mm3 MPV 11.5 H (6-9.5) fl Gran % 67.7 H (36.0-66.0) % Eos # (Auto) 0.22 (0-0.5) Absolute Lymphs (auto) 1.14 (1.0-4.6) Absolute Monos (auto) 0.96 (0.0-1.3) Lymphocytes % 15.7 L (24.0-44.0) % Monocytes % 13.2 H (0.0-12.0) % Eosinophils % 3.0 (0.00-5.0) % Basophils % 0.4 (0.0-0.4) % Absolute Granulocytes 4.93 (1.4-6.9) Basophils # 0.03 (0-0.4) Sodium (137-145) mmol/L Potassium (3.5-5.1) mmol/L Chloride (98-107) mmol/L Carbon Dioxide (22-30) mmol/L Anion Gap (5-15) MEQ/L BUN (7-17) mg/dL Creatinine (0.52-1.04) mg/dL Estimated GFR ML/MIN Glucose (74-106) mg/dL Hemoglobin A1c (4.5-6.0) % Lactic Acid (0.4-2.0) Calcium (8.4-10.2) mg/dL Troponin I < 0.012 0.023 (0.000-0.034) ng/mL 08/04/18 08/04/18 Range/Units 05:28 05:30 WBC (4.0-10.5) K/mm3 RBC (4.1-5.4) M/mm3 Hgb (12.0-16.0) gm/dl Hct (35-47) % MCV (78-100) fl MCH (26-32) pg MCHC (32-36) g/dl RDW (11.5-14.0) % Plt Count (150-450) K/mm3 MPV (6-9.5) fl Gran % (36.0-66.0) % Eos # (Auto) (0-0.5) Absolute Lymphs (auto) (1.0-4.6) Absolute Monos (auto) (0.0-1.3) Lymphocytes % (24.0-44.0) % Monocytes % (0.0-12.0) % Eosinophils % (0.00-5.0) % Basophils % (0.0-0.4) % Absolute Granulocytes (1.4-6.9) Basophils # (0-0.4) Sodium 141 (137-145) mmol/L Potassium 4.8 (3.5-5.1) mmol/L Chloride 115 H (98-107) mmol/L Carbon Dioxide 17 L (22-30) mmol/L Anion Gap 13.8 (5-15) MEQ/L BUN 70 H (7-17) mg/dL Creatinine 2.83 H (0.52-1.04) mg/dL Estimated GFR 16.8 ML/MIN Glucose 142 H (74-106) mg/dL Hemoglobin A1c (4.5-6.0) % Lactic Acid 1.2 (0.4-2.0) Calcium 8.2 L (8.4-10.2) mg/dL Troponin I (0.000-0.034) ng/mL Microbiology 08/03/18 08:54 Urine Culture - Preliminary Catherized NO GROWTH TO DATE Accuchecks Date 08/04/18 Date 08/04/18 Date 08/03/18 Time 04:00 Time 00:00 Time 20:00 Accucheck Value: 142 Accucheck Value: 56 Accucheck Value: 100 Accucheck Value: 170 Accucheck Value: 188 - Radiology Impressions Radiology Exams & Impressions: Radiology Procedures Category Date Time Status CHEST 1 VIEW (PORTABLE) Stat Exams 08/03/18 08:40 Completed Assessment/Plan (1) Acute on chronic renal failure Current Visit: Yes Status: Acute Onset Date: ~08/03/18 Qualifiers: Acute renal failure type: unspecified Chronic kidney disease stage: stage 3 (moderate) Qualified Code(s): N17.9 - Acute kidney failure, unspecified; N18.3 - Chronic kidney disease, stage 3 (moderate) Code(s): N17.9 - ACUTE KIDNEY FAILURE, UNSPECIFIED; N18.9 - CHRONIC KIDNEY DISEASE, UNSPECIFIED (2) Hypertension Current Visit: Yes Status: Acute Onset Date: ~08/03/18 Qualifiers: Hypertension type: essential hypertension Qualified Code(s): I10 - Essential (primary) hypertension Code(s): I10 - ESSENTIAL (PRIMARY) HYPERTENSION (3) UTI (urinary tract infection) Current Visit: Yes Status: Acute Onset Date: ~08/03/18 Qualifiers: Encounter type: initial encounter Code(s): N39.0 - URINARY TRACT INFECTION, SITE NOT SPECIFIED (4) Weakness Current Visit: Yes Status: Acute Onset Date: ~08/03/18 Code(s): R53.1 - WEAKNESS (5) Chronic renal insufficiency Current Visit: Yes Status: Chronic Onset Date: ~08/03/18 Code(s): N18.9 - CHRONIC KIDNEY DISEASE, UNSPECIFIED (6) Diabetes Current Visit: No Status: Chronic Code(s): E11.9 - TYPE 2 DIABETES MELLITUS WITHOUT COMPLICATIONS
[2018-08-04] MEDS: ZOCOR 20MG PO SCH (21:09)
[2018-08-04] MEDS: Actos 30 MG PO SCH (21:09)
[2018-08-04] MEDS ORDERED: SODIUM BICARBONATE PO SCH (22:00)
[2018-08-05] MEDS: Sodium Chloride 0.9% 1000 ML 1,000 ML IV SCH (05:16)
[2018-08-05 05:52] LABS: Hemoglobin 8.6 gm/dl (12.0-16.0); Mean Cell Volume 105.1 fl (78-100); Mean Corpuscular Hgb Concent. 31.9 g/dl (32-36); Mean Platelet Volume 11.3 fl (6-9.5); Platelet Count 144 K/mm3 (150-450); Red Blood Count 2.57 M/mm3 (4.1-5.4); White Blood Count 6.5 K/mm3 (4.0-10.5)
[2018-08-05 06:01] LABS: Iron 29 ug/dL (37-170); Iron Saturation 10 % (20-39); TIBC 279 ug/dL (265-462)
[2018-08-05 06:11] LABS: Mean Corpuscular Hemoglobin 33.4 pg (26-32)
[2018-08-05 06:56] LABS: ALBUMIN 3.1 g/dL (3.5-5.0); ALKALINE PHOSPHATASE 74 U/L (38-126); ANION GAP 13.3 MEQ/L (5-15); BILIRUBIN,TOTAL < 0.10 mg/dL (0.2-1.3); BLOOD UREA NITROGEN 64 mg/dL (7-17); CHLORIDE 113 mmol/L (98-107); Calcium 8.6 mg/dL (8.4-10.2); Carbon Dioxide 19 mmol/L (22-30); Creatinine 1 2.73 mg/dL (0.52-1.04); Ferritin 209 ng/mL (11.1-264); Folate (Folic Acid) 11.3 ng/mL (2.76 - >20); Glucose 147 mg/dL (74-106); Potassium 4.7 mmol/L (3.5-5.1); SGOT/AST 23 U/L (14-36); SGPT/ALT 19 U/L (0-35); SODIUM 141 mmol/L (137-145); Total Protein 5.9 g/dL (6.3-8.2); Vitamin B12 408 pg/mL (239-931)
[2018-08-05] MEDS: Glynase 3 MG PO SCH (08:28)
[2018-08-05] MEDS: Apresoline 25 MG TABLET PO SCH ×3 (09:30→19:58)
[2018-08-05] MEDS: ZYLOPRIM 100 MG PO SCH (09:30)
[2018-08-05] MEDS: Imdur 60MG PO SCH (09:30)
[2018-08-05] MEDS: NORVASC 5 MG PO SCH (09:30)
[2018-08-05] MEDS: ECOTRIN 81 MG PO SCH (09:30)
[2018-08-05] MEDS: Lopressor 50 MG PO SCH ×2 (09:30→19:58)
[2018-08-05] MEDS: hydroDIURIL 25 MG PO SCH (09:30)
--- NOTE | 2018-08-05 09:44 | CONS ---
CONSULT DATE: 08/04/2018 REASON FOR CONSULT: Evaluation of increase in BUN and creatinine. HISTORY: Mike Oquendo is a very pleasant 87 year-old lady who is well known to me. The patient has been following up with me for chronic kidney disease stage IV over the last several years. In the recent past renal function has been progressively declining. Baseline creatinine has been around 2.5 to 2.6 mg%. Glomerular filtration rate had been anywhere around 17 to 18 ml/minute. The patient was brought in by ambulance from home. She complains of generalized weakness. Blood sugar was 70. She has underlying comorbidities of hypertension, diabetes, chronic kidney disease stage IV. She also had not moved bowels for several days but she is moving them now. Creatinine was noted to be 2.83 mg%, BUN was 70 and so a renal consultation was called. REVIEW OF SYSTEMS: She states that she feels weak, tired, is not somnolent but has nausea. Appetite has been somewhat poor. No progressive leg swelling. Breathing at baseline. Denies any use of nonsteroidals. She had a fall about ten days ago. No focal weakness. No seizure. No stroke. No dysuria. She was on Cipro prior to this admission. All systems were reviewed in detail and pertinent mentioned here and in history of present illness and the rest were negative. PAST MEDICAL HISTORY: Chronic kidney disease stage IV progressive. Diabetes mellitus type 2. Hypertension on multiple antihypertensive medications. Coronary artery disease. History of gout. No recent flair up. PAST SURGICAL HISTORY: Cardiac catheterization and stent placement. Renal artery stenosis and possible stent. Cholecystectomy. HOME MEDICATIONS: Included isosorbide mononitrate 60 mg daily, olmesartan 40 mg daily, amlodipine 10 mg daily, hydrochlorothiazide 25 mg daily, sodium bicarb 650 mg daily, hydralazine 25 mg t.i.d., acetaminophen 325 mg, allopurinol 100 mg daily. All home medications were reviewed. The patient was on fluid 100 cc/hour. ALLERGIES: NKDA. SOCIAL HISTORY: No history of smoking, alcohol or illicit drug abuse. FAMILY HISTORY: Sister had chronic kidney disease because of chronic risk factor. No history of kidney disease in the family. PHYSICAL EXAMINATION: Reveals a lady whose blood pressure was noted to be noted to be anywhere from 116 to 130 systolic, pulse rate 70/minute, respiratory rate 14/minute, afebrile. HEENT: Normocephalic, atraumatic, slightly pale conjunctivae, nonicteric sclera. NECK: Supple. No JVD. CHEST: Clear to auscultation. No distress. CVS: S1, S2 normal. No rub or gallop. ABDOMEN: Soft, nontender. No organomegaly. EXTREMITIES: No cyanosis or clubbing. Trace edema bilaterally. SKIN: No skin rash seen. MUSCULOSKELETAL: No acute joint swelling or redness noted. NEUROLOGIC: Alert, awake, oriented x3. LAB DATA AND TESTS: Labs were reviewed. Pertinent hemoglobin 7.9, potassium 4.8. Glomerular filtration rate was 16.8. Creatinine 2.8. BUN 70. ASSESSMENT: 1) CHRONIC KIDNEY DISEASE STAGE IV PROGRESSING TO STAGE V: I doubt any major component of acute kidney injury from his symptoms of azotemia evident including fatigue, nausea and generalized weakness. The patient was told about her poor kidney function. Given her age, creatinine may be poor marker. We will do a 24 hour urine collection for creatinine clearance and see what her actual glomerular filtration rate is. Renal replacement therapy was discussed with the patient in detail. Risks, benefits, alternatives were discussed. She voiced understanding but does not want to proceed at this time. Given her progressive kidney disease, I will discontinue olmesartan at this time and follow up closely. 2) HYPERTENSION FAIRLY CONTROLLED IN FACT LOWER THAN WHAT IT HAS BEEN: We are discontinuing olmesartan. We will increase hydralazine to 50 mg t.i.d., continue isosorbide mononitrate, amlodipine at this point. 3) ANEMIA SECONDARY TO CHRONIC KIDNEY DISEASE: Monitor iron profile. We check ferritin, B12, folate level. IV iron versus oral supplementation. Hemoglobin was 7.9. 4) METABOLIC ACIDOSIS: Bicarbonate levels were 17. We will increase sodium bicarbonate to 650 mg b.i.d. 5) CORONARY ARTERY DISEASE: No symptoms. Decrease fluids to keep vein open. The patient is not dehydrated at this time. RECOMMENDATION: Further work up and we will follow PTH, phosphorus, vitamin D level as an outpatient. I concur with the present medications. I will closely follow the patient.
[2018-08-05] MEDS: ROCEPHIN 1 Gm-D5w 50 ml Bag** 1 G/50 ML IVPB IV SCH (09:50)
[2018-08-05] MEDS: ENOXAPARIN SODIUM SQ SCH (09:50)
[2018-08-05] MEDS ORDERED: NON-FORMULARY ITEM (Sodium Bicarbonate 650 MG) PO SCH (10:00)
--- NOTE | 2018-08-05 11:39 | PCM.NOTE ---
Date and Time: 08/05/18 1138 Subjective Assessment: doing ok, nephrology consult appreciated - Review of Systems Constitutional: No Fever, No Chills Eyes: No Symptoms Ears, Nose, & Throat: No Symptoms Respiratory: No Cough, No Short Of Breath Cardiac: No Chest Pain, No Edema, No Syncope Abdominal/Gastrointestinal: No Abdominal Pain, No Nausea, No Vomiting, No Diarrhea Genitourinary Symptoms: No Dysuria Musculoskeletal: No Back Pain, No Neck Pain Skin: No Rash Neurological: No Dizziness, No Focal Weakness, No Sensory Changes Psychological: No Symptoms Endocrine: No Symptoms Hematologic/Lymphatic: No Symptoms Immunological/Allergic: No Symptoms Objective Exam General Appearance: no apparent distress, alert Neurologic Exam: alert, oriented x 3, cooperative, normal mood/affect, nml cerebellar function, sensation nml, No motor deficits Skin Exam: normal color, warm, dry Eye Exam: PERRL, EOMI, eyes nml inspection Ears, Nose, Throat Exam: normal ENT inspection, pharynx normal, moist mucous membranes Neck Exam: normal inspection, non-tender, supple, full range of motion Respiratory Exam: normal breath sounds, lungs clear, No respiratory distress Cardiovascular Exam: regular rate/rhythm, normal heart sounds Gastrointestinal/Abdomen Exam: soft, No tenderness, No mass Extremity Exam: normal inspection, normal range of motion Back Exam: normal inspection, normal range of motion, No CVA tenderness, No vertebral tenderness Pelvic Exam: deferred Rectal Exam: deferred OBJECTIVE DATA Vital Signs: Vital Signs - 24 hr Temp Pulse Resp BP Pulse Ox 08/05/18 07:59 97 08/05/18 07:26 98.1 F 78 16 161/69 97 08/05/18 04:00 98.5 F 75 20 151/64 92 L 08/05/18 00:00 98.4 F 67 20 149/67 95 08/04/18 20:21 94 L 08/04/18 19:40 99.4 F 76 18 161/69 95 08/04/18 15:48 99.0 F 69 16 136/62 96 Oxygen-Last 24 hours O2 Percentage 2 Liters = 28% O2 Percentage 2 Liters = 28% O2 Percentage 2 Liters = 28% O2 Percentage 2 Liters = 28% O2 Percentage 2 Liters = 28% Pain Assessment - Last Documented Pain Intensity 4 Pain Scale Used 0-10 Pain Scale Intake and Output: Intake & Output 08/02/18 08/03/18 08/04/18 08/05/18 11:59 11:59 11:59 11:59 Intake Total 2663 1376 Output Total 1200 Balance 2663 176 Weight 58.967 kg 64.6 kg Lab Results: Accuchecks Date 08/05/1808/04/18 Date 08/04/18 Time 04:00 Time 00:00 Time 20:00 Accucheck Value: 95 Accucheck Value: 153 Accucheck Value: 126 Accucheck Value: 160 Accucheck Value: 162 Accucheck Value: 212 Lab Results-Last 24 Hours 08/05/18 08/05/18 08/05/18 Range/Units 05:06 05:06 05:06 WBC 6.5 (4.0-10.5) K/mm3 RBC 2.57 L (4.1-5.4) M/mm3 Hgb 8.6 L (12.0-16.0) gm/dl Hct 27.0 L (35-47) % MCV 105.1 H (78-100) fl MCH 33.4 H (26-32) pg MCHC 31.9 L (32-36) g/dl RDW 14.0 (11.5-14.0) % Plt Count 144 L (150-450) K/mm3 MPV 11.3 H (6-9.5) fl Sodium 141 (137-145) mmol/L Potassium 4.7 (3.5-5.1) mmol/L Chloride 113 H (98-107) mmol/L Carbon Dioxide 19 L (22-30) mmol/L Anion Gap 13.3 (5-15) MEQ/L BUN 64 H (7-17) mg/dL Creatinine 2.73 H (0.52-1.04) mg/dL Estimated GFR 17.5 ML/MIN Glucose 147 H (74-106) mg/dL Calcium 8.6 (8.4-10.2) mg/dL Magnesium 2.3 (1.6-2.3) mg/dL Iron 29 L (37-170) ug/dL TIBC 279 (265-462) ug/dL Iron Saturation 10 L (20-39) % Ferritin 209 (11.1-264) ng/mL Total Bilirubin < 0.10 L (0.2-1.3) mg/dL AST 23 (14-36) U/L ALT 19 (0-35) U/L Alkaline Phosphatase 74 (38-126) U/L Serum Total Protein 5.9 L (6.3-8.2) g/dL Albumin 3.1 L (3.5-5.0) g/dL Vitamin B12 408 (239-931) pg/mL Folic Acid 11.3 (2.76 - >20) ng/mL Assessment/Plan (1) Acute on chronic renal failure Current Visit: Yes Status: Acute Onset Date: ~08/03/18 Qualifiers: Acute renal failure type: unspecified Chronic kidney disease stage: stage 3 (moderate) Qualified Code(s): N17.9 - Acute kidney failure, unspecified; N18.3 - Chronic kidney disease, stage 3 (moderate) Assessment & Plan: Last Vital Signs Temp 98.1 F 08/05/18 07:26 Pulse 78 08/05/18 07:26 Resp 16 08/05/18 07:26 BP 161/69 08/05/18 07:26 Pulse Ox 97 08/05/18 07:59 Allergies cephalexin Adverse Reaction (Verified 08/03/18 15:28) dextromethorphan [From Mucinex DM] Adverse Reaction (Verified 08/03/18 15:28) guaifenesin [From Mucinex DM] Adverse Reaction (Verified 08/03/18 15:28) Active Medications Acetaminophen (Tylenol 325 Mg) 650 mg PO Q4H PRN PRN PRN Reason: PAIN AND/OR FEVER Stop: 09/02/18 11:46 Allopurinol (Zyloprim 100 Mg) 100 mg PO DAILY [facility] Stop: 09/02/18 14:59 Last Admin: 08/05/18 09:30 Dose: 100 mg Amlodipine Besylate (Norvasc 5 Mg) 10 mg PO DAILY [facility] Stop: 09/02/18 14:59 Last Admin: 08/05/18 09:30 Dose: 10 mg Aspirin (Ecotrin 81 Mg) 81 mg PO DAILY [facility] Stop: 09/02/18 14:59 Last Admin: 08/05/18 09:30 Dose: 81 mg Enoxaparin Sodium (Enoxaparin Sodium) 30 mg SQ DAILY [facility] Stop: 09/02/18 14:59 Last Admin: 08/05/18 09:50 Dose: 30 mg Glyburide (Glynase 3 Mg) 6 mg PO BREAKFAST [facility] Stop: 09/02/18 14:59 Last Admin: 08/05/18 08:28 Dose: 6 mg Hydralazine HCl (Apresoline 25 Mg Tablet) 50 mg PO TID [facility] Stop: 09/02/18 14:59 Last Admin: 08/05/18 09:30 Dose: 50 mg Hydrochlorothiazide (Hydrodiuril 25 Mg) 25 mg PO DAILY [facility] Stop: 09/02/18 14:59 Last Admin: 08/05/18 09:30 Dose: 25 mg Ceftriaxone Sodium/Dextrose (Rocephin 1 Gm-D5w 50 Ml Bag) 1 g in 50 mls @ 100 mls/hr IV Q24H10 [facility] Stop: 09/02/18 11:59 Last Admin: 08/05/18 09:50 Dose: 100 mls/hr Sodium Chloride (Sodium Chloride 0.9% 1000 Ml) 1,000 mls @ 0 mls/hr IV .Q10H [facility] Last Admin: 08/05/18 05:16 Dose: Not Given Isosorbide Mononitrate (Imdur 60mg) 60 mg PO DAILY [facility] Stop: 09/02/18 14:59 Last Admin: 08/05/18 09:30 Dose: 60 mg Metoprolol Tartrate (Lopressor 50 Mg) 50 mg PO BID [facility] Stop: 09/02/18 21:59 Last Admin: 08/05/18 09:30 Dose: 50 mg Non-Formulary Drug 1 Each (Sodium Bicarbonate 650 Mg) 650 mg PO BID [facility] Stop: 09/03/18 21:59 Last Admin: 08/05/18 10:19 Dose: 650 mg Ondansetron HCl (Zofran 4 Mg/2 Ml Vial) 4 mg IV Q6H PRN PRN PRN Reason: NAUSEA/VOMITING Stop: 09/02/18 11:46 Pioglitazone HCl (Actos 30 Mg) 30 mg PO QHS [facility] Stop: 09/02/18 21:59 Last Admin: 08/04/18 21:09 Dose: 30 mg Simvastatin (Zocor 20mg) 20 mg PO HS [facility] Stop: 09/02/18 21:59 Last Admin: 08/04/18 21:09 Dose: 20 mg Intake & Output 08/04/18 08/05/18 11:59 11:59 Intake Total 2663 1376 Output Total 1200 Balance 2663 176 Weight 64.6 kg Orders 08/04/18 12:16 Admission Status Change [Change to Full Admit] ROUTINE 08/04/18 21:00 Oxygen NASAL CANNULA 2 lpm Pulse Oximetry .spot check Respiratory Therapy Assessment DAILY Lab Tests 08/05/18 08/05/18 08/05/18 05:06 05:06 05:06 WBC 6.5 RBC 2.57 L Hgb 8.6 L Hct 27.0 L MCV 105.1 H MCH 33.4 H MCHC 31.9 L RDW 14.0 Plt Count 144 L MPV 11.3 H Sodium 141 Potassium 4.7 Chloride 113 H Carbon Dioxide 19 L Anion Gap 13.3 BUN 64 H Creatinine 2.73 H Estimated GFR 17.5 Glucose 147 H Calcium 8.6 Magnesium 2.3 Iron 29 L TIBC 279 Iron Saturation 10 L Ferritin 209 Total Bilirubin < 0.10 L AST 23 ALT 19 Alkaline Phosphatase 74 Serum Total Protein 5.9 L Albumin 3.1 L Vitamin B12 408 Folic Acid 11.3 Microbiology 08/03/18 08:54 Catherized Urine Culture - Final NO GROWTH 08/03/18 09:05 Blood Blood Culture - Preliminary NO GROWTH TO DATE 08/03/18 08:30 Blood Blood Culture - Preliminary NO GROWTH TO DATE doing little better Code(s): N17.9 - ACUTE KIDNEY FAILURE, UNSPECIFIED; N18.9 - CHRONIC KIDNEY DISEASE, UNSPECIFIED (2) Hypertension Current Visit: Yes Status: Chronic Onset Date: ~08/03/18 Qualifiers: Hypertension type: essential hypertension Qualified Code(s): I10 - Essential (primary) hypertension Code(s): I10 - ESSENTIAL (PRIMARY) HYPERTENSION (3) UTI (urinary tract infection) Current Visit: Yes Status: Acute Onset Date: ~08/03/18 Qualifiers: Encounter type: initial encounter Code(s): N39.0 - URINARY TRACT INFECTION, SITE NOT SPECIFIED (4) Weakness Current Visit: Yes Status: Acute Onset Date: ~08/03/18 Code(s): R53.1 - WEAKNESS (5) Chronic renal insufficiency Current Visit: Yes Status: Chronic Onset Date: ~08/03/18 Code(s): N18.9 - CHRONIC KIDNEY DISEASE, UNSPECIFIED (6) Diabetes Current Visit: No Status: Chronic Qualifiers: Diabetes mellitus type: type 2 Diabetes mellitus custodial insulin use: without terminal superintendent use Diabetes mellitus complication status: with kidney complications Diabetes mellitus complication detail: with chronic kidney disease Chronic kidney disease stage: stage 4 (severe) Qualified Code(s): E11.22 - Type 2 diabetes mellitus with diabetic chronic kidney disease; N18.4 - Chronic kidney disease, stage 4 (severe) Code(s): E11.9 - TYPE 2 DIABETES MELLITUS WITHOUT COMPLICATIONS
[2018-08-05 20:51] LABS: Creatinine Urine 67.3 mg/dL
[2018-08-05 20:53] LABS: CREATININE CLEARANCE 17.25 ML/MIN
[2018-08-05] MEDS ORDERED: Venofer 100 MG/5 ML IV SCH (22:00)
[2018-08-05] MEDS ORDERED: Aranesp 60 MCG SQ ONE (22:00)
[2018-08-05] MEDS: Actos 30 MG PO SCH (22:54)
[2018-08-05] MEDS: ZOCOR 20MG PO SCH (22:54)
[2018-08-05] MEDS: NON-FORMULARY ITEM PO SCH (22:55)
[2018-08-06] MEDS ORDERED: Apresoline 25 MG TABLET PO ONE (00:03)
[2018-08-06 05:46] LABS: Hematocrit 26.8 % (35-47); Hemoglobin 8.4 gm/dl (12.0-16.0); Mean Cell Volume 103.9 fl (78-100); Mean Corpuscular Hgb Concent. 31.3 g/dl (32-36); Mean Platelet Volume 11.1 fl (6-9.5); Platelet Count 170 K/mm3 (150-450); Red Blood Count 2.58 M/mm3 (4.1-5.4); Red Cell Distribution Width 13.7 % (11.5-14.0); White Blood Count 6.8 K/mm3 (4.0-10.5)
[2018-08-06 05:50] LABS: Mean Corpuscular Hemoglobin 32.5 pg (26-32)
[2018-08-06 06:00] LABS: ALBUMIN 3.4 g/dL (3.5-5.0); ANION GAP 12.7 MEQ/L (5-15); BILIRUBIN,TOTAL 0.2 mg/dL (0.2-1.3); Calcium 8.9 mg/dL (8.4-10.2); Creatinine 1 2.48 mg/dL (0.52-1.04); Potassium 4.7 mmol/L (3.5-5.1); Total Protein 6.4 g/dL (6.3-8.2)
[2018-08-06] MEDS: Glynase 3 MG PO SCH (07:46)
[2018-08-06] MEDS: NORVASC 5 MG PO SCH (07:54)
[2018-08-06] MEDS: Apresoline 25 MG TABLET PO SCH ×2 (07:54→15:14)
[2018-08-06] MEDS: ZYLOPRIM 100 MG PO SCH (07:54)
[2018-08-06] MEDS: Lopressor 50 MG PO SCH (07:55)
[2018-08-06] MEDS: hydroDIURIL 25 MG PO SCH (07:55)
[2018-08-06] MEDS: NON-FORMULARY ITEM PO SCH (07:55)
[2018-08-06] MEDS: Imdur 60MG PO SCH (07:55)
[2018-08-06] MEDS: ECOTRIN 81 MG PO SCH (07:55)
[2018-08-06] MEDS ORDERED: Venofer 100 MG/5 ML IV SCH ×2 (10:00→19:00)
[2018-08-06] MEDS: ENOXAPARIN SODIUM SQ SCH (10:05)
[2018-08-06] MEDS: ROCEPHIN 1 Gm-D5w 50 ml Bag** 1 G/50 ML IVPB IV SCH (10:05)
--- NOTE | 2018-08-06 12:18 | PCM.DS ---
Discharge Summary Date of Admission: 08/04/18 12:16 Admitting Physician: MARLO BROOKS Consults: Consults on Case 08/04/18 09:11 Consult Nephrology ROUTINE Primary Care Provider: MARLO BROOKS Allergies Allergies cephalexin Adverse Reaction (Verified 08/03/18 15:28) dextromethorphan [From Mucinex DM] Adverse Reaction (Verified 08/03/18 15:28) guaifenesin [From Mucinex DM] Adverse Reaction (Verified 08/03/18 15:28) Hospital Summary - Hospital Course Hospital Course: Last Vital Signs Temp 98.3 F 08/06/18 07:09 Pulse 79 08/06/18 07:09 Resp 16 08/06/18 07:09 BP 121/63 08/06/18 07:09 Pulse Ox 92 L 08/06/18 07:09 Allergies cephalexin Adverse Reaction (Verified 08/03/18 15:28) dextromethorphan [From Mucinex DM] Adverse Reaction (Verified 08/03/18 15:28) guaifenesin [From Mucinex DM] Adverse Reaction (Verified 08/03/18 15:28) Active Medications Acetaminophen (Tylenol 325 Mg) 650 mg PO Q4H PRN PRN PRN Reason: PAIN AND/OR FEVER Stop: 09/02/18 11:46 Allopurinol (Zyloprim 100 Mg) 100 mg PO DAILY [facility] Stop: 09/02/18 14:59 Last Admin: 08/06/18 07:54 Dose: 100 mg Amlodipine Besylate (Norvasc 5 Mg) 10 mg PO DAILY [facility] Stop: 09/02/18 14:59 Last Admin: 08/06/18 07:54 Dose: 10 mg Aspirin (Ecotrin 81 Mg) 81 mg PO DAILY [facility] Stop: 09/02/18 14:59 Last Admin: 08/06/18 07:55 Dose: 81 mg Enoxaparin Sodium (Enoxaparin Sodium) 30 mg SQ DAILY [facility] Stop: 09/02/18 14:59 Last Admin: 08/06/18 10:05 Dose: 30 mg Glyburide (Glynase 3 Mg) 6 mg PO BREAKFAST [facility] Stop: 09/02/18 14:59 Last Admin: 08/06/18 07:46 Dose: 6 mg Hydralazine HCl (Apresoline 25 Mg Tablet) 50 mg PO TID [facility] Stop: 09/02/18 14:59 Last Admin: 08/06/18 07:54 Dose: 50 mg Hydrochlorothiazide (Hydrodiuril 25 Mg) 25 mg PO DAILY [facility] Stop: 09/02/18 14:59 Last Admin: 08/06/18 07:55 Dose: 25 mg Ceftriaxone Sodium/Dextrose (Rocephin 1 Gm-D5w 50 Ml Bag) 1 g in 50 mls @ 100 mls/hr IV Q24H10 [facility] Stop: 09/02/18 11:59 Last Admin: 08/06/18 10:05 Dose: 100 mls/hr Sodium Chloride (Sodium Chloride 0.9% 1000 Ml) 1,000 mls @ 0 mls/hr IV .Q10H [facility] Last Admin: 08/05/18 05:16 Dose: Not Given Iron Sucrose 200 mg/ Sodium (Chloride) 110 mls @ 200 mls/hr IV 1900 [facility] Stop: 08/09/18 19:32 Isosorbide Mononitrate (Imdur 60mg) 60 mg PO DAILY [facility] Stop: 09/02/18 14:59 Last Admin: 08/06/18 07:55 Dose: 60 mg Metoprolol Tartrate (Lopressor 50 Mg) 50 mg PO BID [facility] Stop: 09/02/18 21:59 Last Admin: 08/06/18 07:55 Dose: 50 mg Non-Formulary Drug 1 (Sodium Bicarb 650 Mg Tab) 1 each PO BID [facility] Stop: 09/04/18 21:59 Last Admin: 08/06/18 07:55 Dose: 1 each Ondansetron HCl (Zofran 4 Mg/2 Ml Vial) 4 mg IV Q6H PRN PRN PRN Reason: NAUSEA/VOMITING Stop: 09/02/18 11:46 Pioglitazone HCl (Actos 30 Mg) 30 mg PO QHS [facility] Stop: 09/02/18 21:59 Last Admin: 08/05/18 22:54 Dose: 30 mg Simvastatin (Zocor 20mg) 20 mg PO HS [facility] Stop: 09/02/18 21:59 Last Admin: 08/05/18 22:54 Dose: 20 mg Intake & Output 08/06/18 08/07/18 11:59 11:59 Intake Total 1172 Output Total 700 Balance 472 Orders 08/05/18 20:30 24 Hour Urea Clearance Routine Lab Tests 08/05/18 08/06/18 08/06/18 20:36 05:25 05:25 WBC 6.8 RBC 2.58 L Hgb 8.4 L Hct 26.8 L MCV 103.9 H MCH 32.5 H MCHC 31.3 L RDW 13.7 Plt Count 170 MPV 11.1 H Sodium 141 Potassium 4.7 Chloride 113 H Carbon Dioxide 20 L Anion Gap 12.7 BUN 60 H Creatinine 2.66 H 2.48 H Estimated GFR 19.5 Glucose 110 H Calcium 8.9 Total Bilirubin 0.20 AST 25 ALT 20 Alkaline Phosphatase 71 Serum Total Protein 6.4 Albumin 3.4 L Ur 24 Hour Volume 1000 Urine Creatinine 67.3 Creatinine Clearance 17.25 - Vitals & Intake/Output Vital Signs: Vital Signs Temperature 98.3 F 08/06/18 07:09 Pulse Rate 79 08/06/18 07:09 Respiratory Rate 16 08/06/18 07:09 Blood Pressure 121/63 08/06/18 07:09 O2 Sat by Pulse Oximetry 92 L 08/06/18 07:09 Oxygen-Last Documented O2 Percentage 4 Liters = 36% Intake & Output: Intake & Output 08/04/18 08/05/18 08/06/18 08/07/18 11:59 11:59 11:59 11:59 Intake Total 2663 1376 1172 Output Total 1200 700 Balance 2663 176 472 Weight 64.6 kg - Lab Result Diagrams: 08/06/18 05:25 08/06/18 05:25 Lab Results-Last 24 Hrs: Accuchecks Date 08/06/18 Date 08/06/18 Date 08/06/18 Date 08/06/18 Date 08/05/18 Time 11:30 Time 07:30 Time 04:00 Time 00:00 Time 20:00 Accucheck Value: 109 Accucheck Value: 104 Accucheck Value: 77 Accucheck Value: 101 Accucheck Value: 137 Accucheck Value: 137 Lab Results-Last 24 Hours 08/05/18 08/06/18 08/06/18 Range/Units 20:36 05:25 05:25 WBC 6.8 (4.0-10.5) K/mm3 RBC 2.58 L (4.1-5.4) M/mm3 Hgb 8.4 L (12.0-16.0) gm/dl Hct 26.8 L (35-47) % MCV 103.9 H (78-100) fl MCH 32.5 H (26-32) pg MCHC 31.3 L (32-36) g/dl RDW 13.7 (11.5-14.0) % Plt Count 170 (150-450) K/mm3 MPV 11.1 H (6-9.5) fl Sodium 141 (137-145) mmol/L Potassium 4.7 (3.5-5.1) mmol/L Chloride 113 H (98-107) mmol/L Carbon Dioxide 20 L (22-30) mmol/L Anion Gap 12.7 (5-15) MEQ/L BUN 60 H (7-17) mg/dL Creatinine 2.66 H 2.48 H (0.52-1.04) mg/dL Estimated GFR 19.5 ML/MIN Glucose 110 H (74-106) mg/dL Calcium 8.9 (8.4-10.2) mg/dL Total Bilirubin 0.20 (0.2-1.3) mg/dL AST 25 (14-36) U/L ALT 20 (0-35) U/L Alkaline Phosphatase 71 (38-126) U/L Serum Total Protein 6.4 (6.3-8.2) g/dL Albumin 3.4 L (3.5-5.0) g/dL Ur 24 Hour Volume 1000 ML Urine Creatinine 67.3 mg/dL Creatinine Clearance 17.25 ML/MIN Micro Results-Entire Visit: Microbiology 08/03/18 08:54 Urine Culture - Final Catherized NO GROWTH 08/03/18 09:05 Blood Culture - Preliminary Blood NO GROWTH TO DATE 08/03/18 08:30 Blood Culture - Preliminary Blood NO GROWTH TO DATE Accuchecks Date 08/06/18 Date 08/06/18 Date 08/06/18 Date 08/06/18 Date 08/05/18 Time 11:30 Time 07:30 Time 04:00 Time 00:00 Time 20:00 Accucheck Value: 109 Accucheck Value: 104 Accucheck Value: 77 Accucheck Value: 101 Accucheck Value: 137 Accucheck Value: 137 - Procedures and Test Procedures and Tests throughout Hospitalization: Therapy Orders & Screens 08/04/18 21:00 Oxygen NASAL CANNULA 2 lpm Comment: Diagnosis: ACUTE RENAL FAILURE Respiratory Therapy Assessment DAILY Comment: Diagnosis: ACUTE RENAL FAILURE Discharge Exam General Appearance: no apparent distress, alert Neurologic Exam: alert, oriented x 3, cooperative, normal mood/affect, nml cerebellar function, sensation nml, No motor deficits Skin Exam: normal color, warm, dry Eye Exam: PERRL, EOMI, eyes nml inspection Ears, Nose, Throat Exam: normal ENT inspection, pharynx normal, moist mucous membranes Neck Exam: normal inspection, non-tender, supple, full range of motion Respiratory Exam: normal breath sounds, lungs clear, No respiratory distress Cardiovascular Exam: regular rate/rhythm, normal heart sounds Gastrointestinal/Abdomen Exam: soft, No tenderness, No mass Extremity Exam: normal inspection, normal range of motion Back Exam: normal inspection, normal range of motion, No CVA tenderness, No vertebral tenderness Pelvic Exam: deferred Rectal Exam: deferred Final Diagnosis/Problem List - Final Discharge Diagnosis/Problem (1) Acute on chronic renal failure Current Visit: Yes Status: Acute Onset Date: ~08/03/18 (2) Hypertension Current Visit: Yes Status: Chronic Onset Date: ~08/03/18 (3) UTI (urinary tract infection) Current Visit: Yes Status: Acute Onset Date: ~08/03/18 (4) Weakness Current Visit: Yes Status: Acute Onset Date: ~08/03/18 (5) Chronic renal insufficiency Current Visit: Yes Status: Chronic Onset Date: ~08/03/18 (6) Diabetes Current Visit: No Status: Chronic (7) CHF (congestive heart failure), NYHA class III Current Visit: Yes Status: Acute (8) COPD (chronic obstructive pulmonary disease) Current Visit: Yes Status: Acute Assessment & Plan: Oxygen 2 L NC at night - Discharge Discharge Date: 08/06/18 Disposition: Home, Self-Care Condition: Stable Prescriptions: No Action Isosorbide Mononitrate [Isosorbide Mononitrate ER] 60 mg PO DAILY Glyburide,Micronized [Glyburide Micronized] 6 mg PO DAILY Aspirin 81 mg PO DAILY Pioglitazone 30 mg [Actos 30 MG] 30 mg PO QHS Allopurinol 100 mg [Zyloprim 100 mg] 100 mg PO DAILY HydrALAzine HCL 25 MG TAB [Apresoline 25 MG TABLET] 25 mg PO TID Olmesartan/Amlodipin/Hcthiazid [Tribenzor 40-10-25 mg Tablet] 1 each PO DAILY Sodium Bicarbonate 650 mg PO DAILY Metoprolol Tartrate [Lopressor] 50 mg PO BID Rosuvastatin Calcium [Crestor] 10 mg PO HS Ciprofloxacin [Cipro 500 MG] 500 mg PO BID #14 tablet Instructions: Kidney Failure Follow up with: MARLO BROOKS MD [Primary Care Provider] - 08/14/18 9:45 am ([facility]) Forms: Discharge Instructions
[2018-08-06 16:36] VITALS: BP 201/77; PULSE 72; O2SAT 93
[2018-08-06] MEDS ORDERED: Venofer 100 MG/5 ML*** 200 MG in Sodium Chloride 0.9% 100 ML IVPB 100 ML IV SCH (19:00)
== END 2018-08-06 17:00 | disposition home or self-care (01) | DRG 683 ==
LOC: ED 07:58 → MED SURG 11:42 → OBSVTOIN 08-04 12:16
PROVIDERS: ADMIT General Practice; ATTEND General Practice
DX: N17.9 Acute kidney failure, unspecified (principal); N39.0 Urinary tract infection, site not specified; E87.2 Acidosis; E27.40 Unspecified adrenocortical insufficiency; J44.1 Chronic obstructive pulmonary disease with (acute) exacerbation; I12.0 Hypertensive chronic kidney disease with stage 5 chronic kidney disease or end stage renal disease; N18.5 Chronic kidney disease, stage 5; D63.1 Anemia in chronic kidney disease; I50.9 Heart failure, unspecified; I12.9 Hypertensive chronic kidney disease with stage 1 through stage 4 chronic kidney disease, or unspecified chronic kidney disease; R53.1 Weakness; N18.9 Chronic kidney disease, unspecified; M10.9 Gout, unspecified; Z85.828 Personal history of other malignant neoplasm of skin; Z79.899 Other long term (current) drug therapy; I25.2 Old myocardial infarction; E11.9 Type 2 diabetes mellitus without complications; G47.34 Idiopathic sleep related nonobstructive alveolar hypoventilation; M19.90 Unspecified osteoarthritis, unspecified site; K21.9 Gastro-esophageal reflux disease without esophagitis; I25.10 Atherosclerotic heart disease of native coronary artery without angina pectoris
CPT/HCPCS: 36415; 71045; 80048; 80053; 81000; 82575; 82607; 82728; 82746; 82962; 83036; 83540; 83550; 83605; 83690; 83735; 84484; 84545; 85025; 85027; 87040; 87086; 93005; 93268; 94760; 94761; 96360; 96374; 99285; P9612; J0696; J0881; J1650; J1756; J2405; A9270-GY; G0378

== ENCOUNTER 2019-11-13 14:11 | Observation (INO) | payer MEDICARE, BC ==
--- NOTE | 2019-11-13 15:37 | XRAY ---
Indication: Chest pain. Comparison: August 03, 2018. Portable chest demonstrates new mild interstitial edema without focal infiltrate, consolidation, large effusion, or cardiomegaly. Bony thorax intact again with mild osteopenia and degenerative changes.
[2019-11-13 16:14] LABS: Absolute Neutrophil Ct (ANC) 4.19 (1.4-6.9); BASOPHIL % 0.6 % (0.0-0.4); Basophil (Absolute #) 0.04 (0-0.4); Eosinophil % 5.6 % (0.00-5.0); Eosinophil (Absolute #) 0.38 (0-0.5); Hematocrit 34.2 % (35-47); Hemoglobin 11.2 gm/dl (12.0-16.0); Lymphocyte (Absolute #) 1.31 (1.0-4.6); Lymphocytes % 19.4 % (24.0-44.0); Mean Cell Volume 101.5 fl (78-100); Mean Corpuscular Hemoglobin 33.2 pg (26-32); Mean Corpuscular Hgb Concent. 32.7 g/dl (32-36); Mean Platelet Volume 9.5 fl (6-9.5); Monocyte (Absolute #) 0.83 (0.0-1.3); Monocytes % 12.3 % (0.0-12.0); Neutrophil % 62.1 % (36.0-66.0); Platelet Count 164 K/mm3 (150-450); Red Blood Count 3.37 M/mm3 (4.1-5.4); Red Cell Distribution Width 13.2 % (11.5-14.0); White Blood Count 6.8 K/mm3 (4.0-10.5)
[2019-11-13 16:23] LABS: INR 0.99 (0.8-3.0); PROTIME 11.2 SECONDS (9.95-12.35)
[2019-11-13 16:25] LABS: PTT 29.4 SECONDS (25.3-37.0)
[2019-11-13 16:33] LABS: ALBUMIN 4.1 g/dL (3.5-5.0); BILIRUBIN,TOTAL 0.7 mg/dL (0.2-1.3); Calcium 9.4 mg/dL (8.4-10.2); Creatinine 1 1.31 mg/dL (0.52-1.04); Potassium 3.5 mmol/L (3.5-5.1); Total Protein 7.3 g/dL (6.3-8.2)
[2019-11-13 17:00] LABS: AMYLASE 65 U/L (30-110); LIPASE 81 U/L (23-300)
--- NOTE | 2019-11-13 18:02 | ERPHSYRPT ---
- History of Present Illness Time Seen by Provider: 11/13/19 15:00 Patient Subjective Stated Complaint: Pt states "I was at dialysis and I started to have chest pain. My blood pressure has been all over the place." Triage Nursing Assessment: Pt presented alert and oriented X 3, skin wpd Pt ambulates with one assist, pt has uncontrollable tremors. PT able to speak in clear full sentences. pt in no apparent respiratory distres. Physician History: chest pain anterior chest w/o radiation n,v,sob. Timing/Duration: today Activities at Onset: other (dialysis) Quality: dullness, pressure Location: substernal Chest Pain Radiation: no radiation Severity of Pain-Max: mild Severity of Pain-Current: mild Modifying Factors: Improves With: nothing Associated Symptoms: denies symptoms Nitro Today/Relief: no nitro taken today Aspirin Treatment Today: no aspirin today Allergies/Adverse Reactions: cephalexin Adverse Reaction (Verified 08/07/18 11:32) dextromethorphan [From Mucinex DM] Adverse Reaction (Verified 08/07/18 11:32) guaifenesin [From Mucinex DM] Adverse Reaction (Verified 08/07/18 11:32) Home Medications: Aspirin 81 mg PO DAILY 08/20/14 [History] Glyburide,Micronized [Glyburide Micronized] 6 mg PO DAILY 08/20/14 [History] Isosorbide Mononitrate [Isosorbide Mononitrate ER] 60 mg PO DAILY 08/20/14 [ History] Pioglitazone 30 mg [Actos 30 MG] 30 mg PO QHS 10/05/15 [History] Allopurinol 100 mg [Zyloprim 100 mg] 100 mg PO DAILY 07/27/18 [History] Metoprolol Tartrate [Lopressor] 50 mg PO BID 07/27/18 [History] Rosuvastatin Calcium [Crestor] 10 mg PO HS 07/27/18 [History] Sodium Bicarbonate 650 mg PO DAILY 07/27/18 [History] Hx Tetanus, Diphtheria Vaccination/Date Given: Yes Hx Influenza Vaccination/Date Given: Yes Hx Pneumococcal Vaccination/Date Given: No Immunizations Up to Date: Yes - Review of Systems Constitutional: No Fever, No Chills Eyes: No Symptoms Ears, Nose, & Throat: No Symptoms Respiratory: No Dyspnea Cardiac: Chest Pain, No Edema, No Syncope Abdominal/Gastrointestinal: Nausea, No Abdominal Pain, No Vomiting, No Diarrhea Genitourinary Symptoms: No Dysuria Musculoskeletal: No Back Pain, No Neck Pain Skin: No Rash Neurological: No Dizziness, No Focal Weakness, No Sensory Changes Psychological: No Symptoms Endocrine: No Symptoms All Other Systems: Reviewed and Negative - Past Medical History Pertinent Past Medical History: Yes Neurological History: No Pertinent History ENT History: No Pertinent History Cardiac History: Hypertension, Myocardial Infarction (AR) Respiratory History: No Pertinent History Endocrine Medical History: Adrenal Insufficiency, Diabetes Type II Musculoskeletal History: Osteoarthritis GI Medical History: Colitis, GERD, Other History: Renal Disease Psycho-Social History: No Pertinent History Female Reproductive Disorders: No Pertinent History Other Medical History: Pt has been going to kidney doctors, last check up the doctor stated her kidneys were working fine. - Past Surgical History Past Surgical History: Yes Neuro Surgical History: No Pertinent History Cardiac: No Pertinent History Respiratory: No Pertinent History Gastrointestinal: Cholecystectomy Genitourinary: No Pertinent History Musculoskeletal: No Pertinent History Female Surgical History: Hysterectomy Other Surgical History: pt states she had skin cancer removed off her face, hysterectomy, and had an AR during a colonoscopy in the past - Social History Smoking Status: Never smoker Exposure to second hand smoke: Yes Drug Use: none Patient Lives Alone: Yes - Female History Hx Now: No - Nursing Vital Signs Nursing Vital Signs: Initial Vital Signs Temperature 98.5 F 11/13/19 14:16 Pulse Rate 88 11/13/19 14:16 Respiratory Rate 20 11/13/19 14:16 Blood Pressure 203/79 11/13/19 14:16 O2 Sat by Pulse Oximetry 97 11/13/19 14:16 Pain Scale Pain Intensity 4 - Physical Exam General Appearance: moderate distress, alert Eye Exam: PERRL/EOMI, eyes nml inspection Ears, Nose, Throat Exam: normal ENT inspection, moist mucous membranes Neck Exam: normal inspection, non-tender, supple, full range of motion Respiratory Exam: normal breath sounds, lungs clear, No respiratory distress Cardiovascular Exam: regular rate/rhythm, normal heart sounds Gastrointestinal/Abdomen Exam: soft, No tenderness, No mass Back Exam: normal inspection, No CVA tenderness, No vertebral tenderness Extremity Exam: normal inspection, normal range of motion Neurologic Exam: alert, oriented x 3, cooperative, normal mood/affect, sensation nml, No motor deficits Skin Exam: normal color, warm, dry SpO2: 95 - Course Nursing assessment & vital signs reviewed: Yes EKG Interpreted by Me: RATE ([id number]), Sinus Rhythm, Non-specific ST Changes Ordered Tests: Active Orders 24 hr Category Date Time Status Artist Representative STAT Care 11/13/19 14:57 Active EKG-ER Only STAT Care 11/13/19 14:57 Active IV Insertion STAT Care 11/13/19 14:57 Active CHEST 1 VIEW (PORTABLE) Stat Exams 11/13/19 14:57 Completed AMYLASE Stat Lab 11/13/19 15:45 Completed CBC W DIFF Stat Lab 11/13/19 15:45 Completed CK-Creatinine Phosphokinase Stat Lab 11/13/19 15:45 Completed CMP Stat Lab 11/13/19 15:45 Completed LIPASE Stat Lab 11/13/19 15:45 Completed Lactic Acid Stat Lab 11/13/19 14:59 Completed NT PRO BNP Stat Lab 11/13/19 15:45 Completed PROTIME WITH INR Stat Lab 11/13/19 15:45 Completed PTT Stat Lab 11/13/19 15:45 Completed TROPONIN Q3H Lab 11/13/19 15:45 Completed TROPONIN Q3H Lab 11/13/19 18:00 Ordered TROPONIN Q3H Lab 11/13/19 21:00 Ordered TROPONIN Q3H Lab 11/14/19 00:00 Ordered TROPONIN Q3H Lab 11/14/19 03:00 Ordered Lab/Rad Data: Laboratory Result Diagrams 11/13/19 15:45 11/13/19 15:45 Laboratory Results 11/13/19 11/13/19 11/13/19 Range/Units 15:45 15:45 15:45 WBC (4.0-10.5) K/mm3 RBC (4.1-5.4) M/mm3 Hgb (12.0-16.0) gm/dl Hct (35-47) % MCV (78-100) fl MCH (26-32) pg MCHC (32-36) g/dl RDW (11.5-14.0) % Plt Count (150-450) K/mm3 MPV (6-9.5) fl Gran % (36.0-66.0) % Eos # (Auto) (0-0.5) Absolute Lymphs (auto) (1.0-4.6) Absolute Monos (auto) (0.0-1.3) Lymphocytes % (24.0-44.0) % Monocytes % (0.0-12.0) % Eosinophils % (0.00-5.0) % Basophils % (0.0-0.4) % Absolute Granulocytes (1.4-6.9) Basophils # (0-0.4) PT 11.2 (9.95-12.35) SECONDS INR 0.99 (0.8-3.0) APTT 29.4 (25.3-37.0) SECONDS Sodium (137-145) mmol/L Potassium (3.5-5.1) mmol/L Chloride (98-107) mmol/L Carbon Dioxide (22-30) mmol/L Anion Gap (5-15) MEQ/L BUN (7-17) mg/dL Creatinine (0.52-1.04) mg/dL Estimated GFR ML/MIN Glucose (74-106) mg/dL Lactic Acid (0.4-2.0) Calcium (8.4-10.2) mg/dL Total Bilirubin (0.2-1.3) mg/dL AST (14-36) U/L ALT (0-35) U/L Alkaline Phosphatase (38-126) U/L Creatine Kinase (30-135) U/L Troponin I 0.021 (0.000-0.034) ng/mL NT-Pro-B Natriuret Pep (0-1800) pg/mL Serum Total Protein (6.3-8.2) g/dL Albumin (3.5-5.0) g/dL Amylase 65 (30-110) U/L Lipase 81 (23-300) U/L 11/13/19 11/13/19 11/13/19 Range/Units 15:45 15:45 14:59 WBC 6.8 (4.0-10.5) K/mm3 RBC 3.37 L (4.1-5.4) M/mm3 Hgb 11.2 L (12.0-16.0) gm/dl Hct 34.2 L (35-47) % MCV 101.5 H (78-100) fl MCH 33.2 H (26-32) pg MCHC 32.7 (32-36) g/dl RDW 13.2 (11.5-14.0) % Plt Count 164 (150-450) K/mm3 MPV 9.5 (6-9.5) fl Gran % 62.1 (36.0-66.0) % Eos # (Auto) 0.38 (0-0.5) Absolute Lymphs (auto) 1.31 (1.0-4.6) Absolute Monos (auto) 0.83 (0.0-1.3) Lymphocytes % 19.4 L (24.0-44.0) % Monocytes % 12.3 H (0.0-12.0) % Eosinophils % 5.6 H (0.00-5.0) % Basophils % 0.6 (0.0-0.4) % Absolute Granulocytes 4.19 (1.4-6.9) Basophils # 0.04 (0-0.4) PT (9.95-12.35) SECONDS INR (0.8-3.0) APTT (25.3-37.0) SECONDS Sodium 139 (137-145) mmol/L Potassium 3.5 (3.5-5.1) mmol/L Chloride 102 (98-107) mmol/L Carbon Dioxide 32 H (22-30) mmol/L Anion Gap 9.0 (5-15) MEQ/L BUN 12 (7-17) mg/dL Creatinine 1.31 H (0.52-1.04) mg/dL Estimated GFR 40.6 ML/MIN Glucose 88 (74-106) mg/dL Lactic Acid 0.8 (0.4-2.0) Calcium 9.4 (8.4-10.2) mg/dL Total Bilirubin 0.70 (0.2-1.3) mg/dL AST 23 (14-36) U/L ALT 15 (0-35) U/L Alkaline Phosphatase 136 H (38-126) U/L Creatine Kinase 40 (30-135) U/L Troponin I (0.000-0.034) ng/mL NT-Pro-B Natriuret Pep 2220 H (0-1800) pg/mL Serum Total Protein 7.3 (6.3-8.2) g/dL Albumin 4.1 (3.5-5.0) g/dL Amylase (30-110) U/L Lipase (23-300) U/L - Progress Progress: unchanged Air Movement: good Blood Culture(s) Obtained: No Antibiotics given: No Discussed with : Osvaldo Will see patient in: hospital (observation) - Departure Departure Disposition: Observation Clinical Impression: Chest pain Condition: Stable Critical Care Time: No Referrals: MARLO BROOKS MD [Primary Care Provider] -
[2019-11-13] MEDS ORDERED: DILAUDID 1 MG/1ML PCA IV PRN (18:13)
[2019-11-13] MEDS ORDERED: SUBLIMAZE 100 MCG/2 ML IV ONE (18:17)
[2019-11-13] MEDS ORDERED: BABY ASPIRIN 81 MG CHEW PO ONE (18:17)
[2019-11-13] MEDS ORDERED: Sodium Chloride 0.9% 1000 ML 1,000 ML IV SCH (18:30)
[2019-11-13] MEDS ORDERED: Senokot-S Tablet PO PRN (18:38)
[2019-11-13] MEDS ORDERED: MAALOX ES 30 ML UNIT DOSE PO PRN (18:38)
[2019-11-13] MEDS ORDERED: TYLENOL 325 MG PO PRN (18:38)
[2019-11-13] MEDS ORDERED: MILK OF MAGNESIA 30 ML PO PRN (18:38)
[2019-11-13] MEDS ORDERED: Zofran 4 MG/2 ML VIAL IV PRN (18:38)
--- NOTE | 2019-11-13 20:50 | PCM.HP ---
History of Present Illness - Chief Complaint Chief Complaint: chest pain for 6 hours History of Present Illness: is a 89 year old female.Pt states "I was at dialysis and I started to have chest pain. My blood pressure has been all over the place." chest pain anterior chest w/o radiation n,v,sob. Timing/Duration: today Activities at Onset: other (dialysis) Quality: dullness, pressure Location: substernal Chest Pain Radiation: no radiation Severity of Pain-Max: mild Severity of Pain-Current: mild Modifying Factors: Improves With: nothing Associated Symptoms: denies symptoms Nitro Today/Relief: no nitro taken today Aspirin Treatment Today: no aspirin today - Review of Systems Constitutional: No Fever, No Chills Eyes: No Symptoms Ears, Nose, & Throat: No Symptoms Respiratory: No Cough, No Short Of Breath Cardiac: Chest Pain, No Edema, No Syncope Abdominal/Gastrointestinal: No Abdominal Pain, No Nausea, No Vomiting, No Diarrhea Genitourinary Symptoms: No Dysuria Musculoskeletal: No Back Pain, No Neck Pain Skin: No Rash Neurological: No Dizziness, No Focal Weakness, No Sensory Changes Psychological: No Symptoms Endocrine: No Symptoms Hematologic/Lymphatic: No Symptoms Immunological/Allergic: No Symptoms Medications & Allergies Home Medications: Home Medication List Aspirin 81 mg PO DAILY 08/20/14 [History Confirmed 11/13/19] Glyburide,Micronized [Glyburide Micronized] 6 mg PO DAILY 08/20/14 [History Confirmed 11/13/19] Isosorbide Mononitrate [Isosorbide Mononitrate ER] 60 mg PO DAILY 08/20/14 [ History Confirmed 11/13/19] Allopurinol 100 mg [Zyloprim 100 mg] 100 mg PO DAILY 07/27/18 [History Confirmed 11/13/19] Metoprolol Tartrate [Lopressor] 50 mg PO DAILY 07/27/18 [History Confirmed 11/13] Sodium Bicarbonate 650 mg PO DAILY 07/27/18 [History Confirmed 11/13/19] Amlodipine Besylate 5 mg [Norvasc 5 mg] 10 mg PO EVENING MEAL 11/13/19 [ History Confirmed 11/13/19] Atorvastatin Calcium [Lipitor] 0 mg PO HS 11/13/19 [History Confirmed 11/13/19] Furosemide 20 mg [Lasix 20 mg] 20 mg PO DAILY 11/13/19 [History Confirmed 11/13/19] HydrALAzine HCL 25 MG TAB [Apresoline 25 MG TABLET] 25 mg PO DAILY [History Confirmed 11/13/19] Allergies/Adverse Reactions: Allergies Allergy/AdvReac Type Severity Reaction Status Date / Time cephalexin AdvReac Verified 08/07/18 11:32 dextromethorphan AdvReac Verified 08/07/18 11:32 [From Mucinex DM] guaifenesin [From Mucinex DM] AdvReac Verified 08/07/18 11:32 - Past Medical History Past Medical History: Yes Neurological History: No Pertinent History ENT History: No Pertinent History Cardiac History: Hypertension, Myocardial Infarction (ME) Respiratory History: No Pertinent History Endocrine Medical History: Adrenal Insufficiency, Diabetes Type II Musculoskelatal History: Osteoarthritis GI Medical History: Colitis, GERD, Other History: Renal Disease Pyscho-Social History: No Pertinent History Reproductive Disorders: No Pertinent History Comment: Pt has been going to kidney doctors, last check up the doctor stated her kidneys were working fine. skin cancer unknown which one - Female History Are you now?: No - Past Surgical History Past Surgical History: Yes Neuro Surgical History: No Pertinent History Cardiac History: No Pertinent History Respiratory Surgery: No Pertinent History GI Surgical History: Cholecystectomy Genitourinary Surgical Hx: No Pertinent History Musculskeletal Surgical Hx: No Pertinent History Female Surgical History: Hysterectomy Other Surgical History: pt states she had skin cancer removed off her face, hysterectomy, and had an ME during a colonoscopy in the past - Social History Smoking Status: Never smoker Exposure to second hand smoke: Yes Alcohol: None Drug Use: none - Physical Exam Vital Signs: Vital Signs - 24 hr Temp Pulse Pulse Resp BP Pulse Ox 11/13/19 18:31 80 20 168/78 94 L 11/13/19 18:01 95 11/13/19 18:00 80 20 194/94 94 L 11/13/19 17:39 86 22 205/72 95 11/13/19 17:30 81 18 190/64 93 L 11/13/19 17:00 93 H 20 184/55 93 L 11/13/19 16:05 76 18 188/61 94 L 12/27/19 15:24 83 20 174/52 95 11/13/19 15:20 83 20 174/52 95 11/13/19 14:16 98.5 F 88 88 20 203/79 97 General Appearance: no apparent distress, alert Neurologic Exam: alert, oriented x 3, cooperative, normal mood/affect, nml cerebellar function, nml station & gait, sensation nml, No motor deficits Eye Exam: PERRL/EOMI, eyes nml inspection Ears, Nose, Throat Exam: normal ENT inspection, TMs normal, pharynx normal, moist mucous membranes Neck Exam: normal inspection, non-tender, supple, full range of motion Respiratory Exam: normal breath sounds, lungs clear, No respiratory distress Cardiovascular Exam: regular rate/rhythm, normal heart sounds, normal peripheral pulses Gastrointestinal/Abdomen Exam: soft, normal bowel sounds, No tenderness, No mass Back Exam: normal inspection, normal range of motion, No CVA tenderness, No vertebral tenderness Extremity Exam: normal inspection, normal range of motion, pelvis stable Skin Exam: normal color, warm, dry, No rash Lymphatic Exam: No adenopathy Results - Labs Lab/Micro Results: Lab Results-Last 24 Hours 11/13/19 11/13/19 11/13/19 Range/Units 14:59 15:45 15:45 WBC 6.8 (4.0-10.5) K/mm3 RBC 3.37 L (4.1-5.4) M/mm3 Hgb 11.2 L (12.0-16.0) gm/dl Hct 34.2 L (35-47) % MCV 101.5 H (78-100) fl MCH 33.2 H (26-32) pg MCHC 32.7 (32-36) g/dl RDW 13.2 (11.5-14.0) % Plt Count 164 (150-450) K/mm3 MPV 9.5 (6-9.5) fl Gran % 62.1 (36.0-66.0) % Eos # (Auto) 0.38 (0-0.5) Absolute Lymphs (auto) 1.31 (1.0-4.6) Absolute Monos (auto) 0.83 (0.0-1.3) Lymphocytes % 19.4 L (24.0-44.0) % Monocytes % 12.3 H (0.0-12.0) % Eosinophils % 5.6 H (0.00-5.0) % Basophils % 0.6 (0.0-0.4) % Absolute Granulocytes 4.19 (1.4-6.9) Basophils # 0.04 (0-0.4) PT (9.95-12.35) SECONDS INR (0.8-3.0) APTT (25.3-37.0) SECONDS Sodium 139 (137-145) mmol/L Potassium 3.5 (3.5-5.1) mmol/L Chloride 102 (98-107) mmol/L Carbon Dioxide 32 H (22-30) mmol/L Anion Gap 9.0 (5-15) MEQ/L BUN 12 (7-17) mg/dL Creatinine 1.31 H (0.52-1.04) mg/dL Estimated GFR 40.6 ML/MIN Glucose 88 (74-106) mg/dL Lactic Acid 0.8 (0.4-2.0) Calcium 9.4 (8.4-10.2) mg/dL Total Bilirubin 0.70 (0.2-1.3) mg/dL AST 23 (14-36) U/L ALT 15 (0-35) U/L Alkaline Phosphatase 136 H (38-126) U/L Creatine Kinase 40 (30-135) U/L Troponin I (0.000-0.034) ng/mL NT-Pro-B Natriuret Pep 2220 H (0-1800) pg/mL Serum Total Protein 7.3 (6.3-8.2) g/dL Albumin 4.1 (3.5-5.0) g/dL Amylase (30-110) U/L Lipase (23-300) U/L 11/13/19 11/13/19 11/13/19 Range/Units 15:45 15:45 15:45 WBC (4.0-10.5) K/mm3 RBC (4.1-5.4) M/mm3 Hgb (12.0-16.0) gm/dl Hct (35-47) % MCV (78-100) fl MCH (26-32) pg MCHC (32-36) g/dl RDW (11.5-14.0) % Plt Count (150-450) K/mm3 MPV (6-9.5) fl Gran % (36.0-66.0) % Eos # (Auto) (0-0.5) Absolute Lymphs (auto) (1.0-4.6) Absolute Monos (auto) (0.0-1.3) Lymphocytes % (24.0-44.0) % Monocytes % (0.0-12.0) % Eosinophils % (0.00-5.0) % Basophils % (0.0-0.4) % Absolute Granulocytes (1.4-6.9) Basophils # (0-0.4) PT 11.2 (9.95-12.35) SECONDS INR 0.99 (0.8-3.0) APTT 29.4 (25.3-37.0) SECONDS Sodium (137-145) mmol/L Potassium (3.5-5.1) mmol/L Chloride (98-107) mmol/L Carbon Dioxide (22-30) mmol/L Anion Gap (5-15) MEQ/L BUN (7-17) mg/dL Creatinine (0.52-1.04) mg/dL Estimated GFR ML/MIN Glucose (74-106) mg/dL Lactic Acid (0.4-2.0) Calcium (8.4-10.2) mg/dL Total Bilirubin (0.2-1.3) mg/dL AST (14-36) U/L ALT (0-35) U/L Alkaline Phosphatase (38-126) U/L Creatine Kinase (30-135) U/L Troponin I 0.021 (0.000-0.034) ng/mL NT-Pro-B Natriuret Pep (0-1800) pg/mL Serum Total Protein (6.3-8.2) g/dL Albumin (3.5-5.0) g/dL Amylase 65 (30-110) U/L Lipase 81 (23-300) U/L 11/13/ Range/Units 18:00 WBC (4.0-10.5) K/mm3 RBC (4.1-5.4) M/mm3 Hgb (12.0-16.0) gm/dl Hct (35-47) % MCV (78-100) fl MCH (26-32) pg MCHC (32-36) g/dl RDW (11.5-14.0) % Plt Count (150-450) K/mm3 MPV (6-9.5) fl Gran % (36.0-66.0) % Eos # (Auto) (0-0.5) Absolute Lymphs (auto) (1.0-4.6) Absolute Monos (auto) (0.0-1.3) Lymphocytes % (24.0-44.0) % Monocytes % (0.0-12.0) % Eosinophils % (0.00-5.0) % Basophils % (0.0-0.4) % Absolute Granulocytes (1.4-6.9) Basophils # (0-0.4) PT (9.95-12.35) SECONDS INR (0.8-3.0) APTT (25.3-37.0) SECONDS Sodium (137-145) mmol/L Potassium (3.5-5.1) mmol/L Chloride (98-107) mmol/L Carbon Dioxide (22-30) mmol/L Anion Gap (5-15) MEQ/L BUN (7-17) mg/dL Creatinine (0.52-1.04) mg/dL Estimated GFR ML/MIN Glucose (74-106) mg/dL Lactic Acid (0.4-2.0) Calcium (8.4-10.2) mg/dL Total Bilirubin (0.2-1.3) mg/dL AST (14-36) U/L ALT (0-35) U/L Alkaline Phosphatase (38-126) U/L Creatine Kinase (30-135) U/L Troponin I 0.028 (0.000-0.034) ng/mL NT-Pro-B Natriuret Pep (0-1800) pg/mL Serum Total Protein (6.3-8.2) g/dL Albumin (3.5-5.0) g/dL Amylase (30-110) U/L Lipase (23-300) U/L - Radiology Impressions Radiology Exams & Impressions: Radiology Procedures Category Date Time Status CHEST 1 VIEW (PORTABLE) Stat Exams 11/13/19 14:57 Completed - Other Procedures and Tests Respiratory Therapy 11/13/19 18:38 EKG Q8HX2,QAMX3,PRN Assessment/Plan (1) Chest pain Current Visit: Yes Status: Acute Qualifiers: Chest pain type: unspecified Qualified Code(s): R07.9 - Chest pain, unspecified Code(s): R07.9 - CHEST PAIN, UNSPECIFIED (2) Acute on chronic renal failure Current Visit: Yes Status: Acute Onset Date: ~08/03/18 Qualifiers: Chronic kidney disease stage: on chronic dialysis Code(s): N17.9 - ACUTE KIDNEY FAILURE, UNSPECIFIED; N18.9 - CHRONIC KIDNEY DISEASE, UNSPECIFIED (3) CHF (congestive heart failure), NYHA class III Current Visit: No Status: Acute Code(s): I50.9 - HEART FAILURE, UNSPECIFIED (4) COPD (chronic obstructive pulmonary disease) Current Visit: No Status: Acute (5) Stage 5 chronic kidney disease Current Visit: No Status: Acute Code(s): N18.5 - CHRONIC KIDNEY DISEASE, STAGE 5
[2019-11-13] MEDS ORDERED: NORVASC 5 MG ONE (21:04)
[2019-11-13] MEDS ORDERED: NORVASC 5 MG PO SCH (22:00)
[2019-11-14] MEDS ORDERED: Lopressor 50 MG ONE (04:38)
[2019-11-14] MEDS ORDERED: Apresoline 25 MG TABLET ONE (04:38)
[2019-11-14] MEDS: Imdur 60MG PO SCH ×2 (05:04→06:15)
[2019-11-14 05:48] LABS: Risk Ratio 3.9
[2019-11-14] MEDS ORDERED: Apresoline 25 MG TABLET PO SCH (06:00)
[2019-11-14] MEDS ORDERED: Lopressor 50 MG PO SCH (06:00)
[2019-11-14] MEDS: COREG 12.5 MG PO SCH ×2 (06:14→21:09)
[2019-11-14] MEDS: Apresoline 25 MG TABLET PO SCH (06:14)
--- NOTE | 2019-11-14 08:22 | PCM.NOTE ---
Date and Time: 11/14/19820 Subjective Assessment: doing better, troponins negative - Review of Systems Constitutional: No Fever, No Chills Eyes: No Symptoms Ears, Nose, & Throat: No Symptoms Respiratory: No Cough, No Short Of Breath Cardiac: No Chest Pain, No Edema, No Syncope Abdominal/Gastrointestinal: No Abdominal Pain, No Nausea, No Vomiting, No Diarrhea Genitourinary Symptoms: No Dysuria Musculoskeletal: No Back Pain, No Neck Pain Skin: No Rash Neurological: No Dizziness, No Focal Weakness, No Sensory Changes Psychological: No Symptoms Endocrine: No Symptoms Hematologic/Lymphatic: No Symptoms Immunological/Allergic: No Symptoms Objective Exam General Appearance: no apparent distress, alert Neurologic Exam: alert, oriented x 3, cooperative, normal mood/affect, nml cerebellar function, sensation nml, No motor deficits Skin Exam: normal color, warm, dry Eye Exam: PERRL, EOMI, eyes nml inspection Ears, Nose, Throat Exam: normal ENT inspection, pharynx normal, moist mucous membranes Neck Exam: normal inspection, non-tender, supple, full range of motion Respiratory Exam: normal breath sounds, lungs clear, No respiratory distress Cardiovascular Exam: regular rate/rhythm, normal heart sounds Gastrointestinal/Abdomen Exam: soft, No tenderness, No mass Extremity Exam: normal inspection, normal range of motion Back Exam: normal inspection, normal range of motion, No CVA tenderness, No vertebral tenderness Pelvic Exam: deferred Rectal Exam: deferred OBJECTIVE DATA Vital Signs: Vital Signs - 24 hr Temp Pulse Pulse Resp BP Pulse Ox 11/14/19 07:04 98.8 F 78 20 148/86 97 11/14/19 04:00 98.0 F 74 20 190/70 96 11/14/19 00:00 98.2 F 74 24 175/72 98 11/13/19 23:15 88 L 11/13/19 21:14 98.4 F 80 20 139/94 92 L 11/13/19 20:00 97.8 F 79 28 H 188/79 92 L 11/13/19 18:31 80 20 168/78 94 L 11/13/19 18:01 95 11/13/19 18:00 80 20 194/94 94 L 11/13/19 17:39 86 22 205/72 95 11/13/19 17:30 81 18 190/64 93 L 11/13/19 17:00 93 H 20 184/55 93 L 11/13/19 16:05 76 18 188/61 94 L 11/13/19 15:24 83 20 174/52 95 11/13/19 15:20 83 20 174/52 95 11/13/19 14:16 98.5 F 88 88 20 203/79 97 Oxygen-Last 24 hours O2 Percentage 2 Liters = 28% Pain Assessment - Last Documented Pain Intensity 3 Pain Scale Used FLACC Intake and Output: Intake & Output 11/11/19 11/12/19 11/13/19 11/14/19 11:59 11:59 11:59 11:59 Intake Total 440 Output Total 850 Balance -410 Weight 63.8 kg Lab Results: Lab Results-Last 24 Hours 11/13/19 11/13/19 11/13/19 Range/Units 14:59 15:45 15:45 WBC 6.8 (4.0-10.5) K/mm3 RBC 3.37 L (4.1-5.4) M/mm3 Hgb 11.2 L (12.0-16.0) gm/dl Hct 34.2 L (35-47) % MCV 101.5 H (78-100) fl MCH 33.2 H (26-32) pg MCHC 32.7 (32-36) g/dl RDW 13.2 (11.5-14.0) % Plt Count 164 (150-450) K/mm3 MPV 9.5 (6-9.5) fl Gran % 62.1 (36.0-66.0) % Eos # (Auto) 0.38 (0-0.5) Absolute Lymphs (auto) 1.31 (1.0-4.6) Absolute Monos (auto) 0.83 (0.0-1.3) Lymphocytes % 19.4 L (24.0-44.0) % Monocytes % 12.3 H (0.0-12.0) % Eosinophils % 5.6 H (0.00-5.0) % Basophils % 0.6 (0.0-0.4) % Absolute Granulocytes 4.19 (1.4-6.9) Basophils # 0.04 (0-0.4) PT (9.95-12.35) SECONDS INR (0.8-3.0) APTT (25.3-37.0) SECONDS Sodium 139 (137-145) mmol/L Potassium 3.5 (3.5-5.1) mmol/L Chloride 102 (98-107) mmol/L Carbon Dioxide 32 H (22-30) mmol/L Anion Gap 9.0 (5-15) MEQ/L BUN 12 (7-17) mg/dL Creatinine 1.31 H (0.52-1.04) mg/dL Estimated GFR 40.6 ML/MIN Glucose 88 (74-106) mg/dL Lactic Acid 0.8 (0.4-2.0) Calcium 9.4 (8.4-10.2) mg/dL Total Bilirubin 0.70 (0.2-1.3) mg/dL AST 23 (14-36) U/L ALT 15 (0-35) U/L Alkaline Phosphatase 136 H (38-126) U/L Creatine Kinase 40 (30-135) U/L Troponin I (0.000-0.034) ng/mL NT-Pro-B Natriuret Pep 2220 H (0-1800) pg/mL Serum Total Protein 7.3 (6.3-8.2) g/dL Albumin 4.1 (3.5-5.0) g/dL Triglycerides (30-150) mg/dL Cholesterol (50-200) mg/dL LDL Cholesterol (30-100) mg/dL HDL Cholesterol (40-60) mg/dL Heart Disease Risk Ratio Amylase (30-110) U/L Lipase (23-300) U/L 11/13/19 11/13/19 11/13/19 Range/Units 15:45 15:45 15:45 WBC (4.0-10.5) K/mm3 RBC (4.1-5.4) M/mm3 Hgb (12.0-16.0) gm/dl Hct (35-47) % MCV (78-100) fl MCH (26-32) pg MCHC (32-36) g/dl RDW (11.5-14.0) % Plt Count (150-450) K/mm3 MPV (6-9.5) fl Gran % (36.0-66.0) % Eos # (Auto) (0-0.5) Absolute Lymphs (auto) (1.0-4.6) Absolute Monos (auto) (0.0-1.3) Lymphocytes % (24.0-44.0) % Monocytes % (0.0-12.0) % Eosinophils % (0.00-5.0) % Basophils % (0.0-0.4) % Absolute Granulocytes (1.4-6.9) Basophils # (0-0.4) PT 11.2 (9.95-12.35) SECONDS INR 0.99 (0.8-3.0) APTT 29.4 (25.3-37.0) SECONDS Sodium (137-145) mmol/L Potassium (3.5-5.1) mmol/L Chloride (98-107) mmol/L Carbon Dioxide (22-30) mmol/L Anion Gap (5-15) MEQ/L BUN (7-17) mg/dL Creatinine (0.52-1.04) mg/dL Estimated GFR ML/MIN Glucose (74-106) mg/dL Lactic Acid (0.4-2.0) Calcium (8.4-10.2) mg/dL Total Bilirubin (0.2-1.3) mg/dL AST (14-36) U/L ALT (0-35) U/L Alkaline Phosphatase (38-126) U/L Creatine Kinase (30-135) U/L Troponin I 0.021 (0.000-0.034) ng/mL NT-Pro-B Natriuret Pep (0-1800) pg/mL Serum Total Protein (6.3-8.2) g/dL Albumin (3.5-5.0) g/dL Triglycerides (30-150) mg/dL Cholesterol (50-200) mg/dL LDL Cholesterol (30-100) mg/dL HDL Cholesterol (40-60) mg/dL Heart Disease Risk Ratio Amylase 65 (30-110) U/L Lipase 81 (23-300) U/L 11/13/19 11/13/19 11/14/19 Range/Units 18:00 21:27 01:41 WBC (4.0-10.5) K/mm3 RBC (4.1-5.4) M/mm3 Hgb (12.0-16.0) gm/dl Hct (35-47) % MCV (78-100) fl MCH (26-32) pg MCHC (32-36) g/dl RDW (11.5-14.0) % Plt Count (150-450) K/mm3 MPV (6-9.5) fl Gran % (36.0-66.0) % Eos # (Auto) (0-0.5) Absolute Lymphs (auto) (1.0-4.6) Absolute Monos (auto) (0.0-1.3) Lymphocytes % (24.0-44.0) % Monocytes % (0.0-12.0) % Eosinophils % (0.00-5.0) % Basophils % (0.0-0.4) % Absolute Granulocytes (1.4-6.9) Basophils # (0-0.4) PT (9.95-12.35) SECONDS INR (0.8-3.0) APTT (25.3-37.0) SECONDS Sodium (137-145) mmol/L Potassium (3.5-5.1) mmol/L Chloride (98-107) mmol/L Carbon Dioxide (22-30) mmol/L Anion Gap (5-15) MEQ/L BUN (7-17) mg/dL Creatinine (0.52-1.04) mg/dL Estimated GFR ML/MIN Glucose (74-106) mg/dL Lactic Acid (0.4-2.0) Calcium (8.4-10.2) mg/dL Total Bilirubin (0.2-1.3) mg/dL AST (14-36) U/L ALT (0-35) U/L Alkaline Phosphatase (38-126) U/L Creatine Kinase (30-135) U/L Troponin I 0.028 0.033 0.034 (0.000-0.034) ng/mL NT-Pro-B Natriuret Pep (0-1800) pg/mL Serum Total Protein (6.3-8.2) g/dL Albumin (3.5-5.0) g/dL Triglycerides (30-150) mg/dL Cholesterol (50-200) mg/dL LDL Cholesterol (30-100) mg/dL HDL Cholesterol (40-60) mg/dL Heart Disease Risk Ratio Amylase (30-110) U/L Lipase (23-300) U/L 12/28/19 12/28/19 Range/Units 05:24 05:24 WBC (4.0-10.5) K/mm3 RBC (4.1-5.4) M/mm3 Hgb (12.0-16.0) gm/dl Hct (35-47) % MCV (78-100) fl MCH (26-32) pg MCHC (32-36) g/dl RDW (11.5-14.0) % Plt Count (150-450) K/mm3 MPV (6-9.5) fl Gran % (36.0-66.0) % Eos # (Auto) (0-0.5) Absolute Lymphs (auto) (1.0-4.6) Absolute Monos (auto) (0.0-1.3) Lymphocytes % (24.0-44.0) % Monocytes % (0.0-12.0) % Eosinophils % (0.00-5.0) % Basophils % (0.0-0.4) % Absolute Granulocytes (1.4-6.9) Basophils # (0-0.4) PT (9.95-12.35) SECONDS INR (0.8-3.0) APTT (25.3-37.0) SECONDS Sodium (137-145) mmol/L Potassium (3.5-5.1) mmol/L Chloride (98-107) mmol/L Carbon Dioxide (22-30) mmol/L Anion Gap (5-15) MEQ/L BUN (7-17) mg/dL Creatinine (0.52-1.04) mg/dL Estimated GFR ML/MIN Glucose (74-106) mg/dL Lactic Acid (0.4-2.0) Calcium (8.4-10.2) mg/dL Total Bilirubin (0.2-1.3) mg/dL AST (14-36) U/L ALT (0-35) U/L Alkaline Phosphatase (38-126) U/L Creatine Kinase (30-135) U/L Troponin I 0.033 (0.000-0.034) ng/mL NT-Pro-B Natriuret Pep (0-1800) pg/mL Serum Total Protein (6.3-8.2) g/dL Albumin (3.5-5.0) g/dL Triglycerides 248 H (30-150) mg/dL Cholesterol 139 (50-200) mg/dL LDL Cholesterol 56 (30-100) mg/dL HDL Cholesterol 36 L (40-60) mg/dL Heart Disease Risk Ratio 3.9 Amylase (30-110) U/L Lipase (23-300) U/L Radiology Exams: Radiology Procedures Category Date Time Status CHEST 1 VIEW (PORTABLE) Stat Exams 11/13/19 14:57 Completed Assessment/Plan (1) Hypertensive cardiovascular-renal disease Current Visit: Yes Status: Acute Qualifiers: Hypertensive chronic kidney disease stage: stage 5 chronic kidney disease or end stage renal disease Assessment & Plan: Chief Complaint Diagnosis Chest pain rule out Allergies Allergy/AdvReac Type Severity Reaction Status Date / Time cephalexin AdvReac Verified 08/07/18 11:32 dextromethorphan AdvReac Verified 08/07/18 11:32 [From Mucinex DM] guaifenesin [From Mucinex DM] AdvReac Verified 08/07/18 11:32 Vital Signs (Last 24 hours) Temp Pulse Pulse Resp BP Pulse Ox 11/14/19 07:04 98.8 F 78 20 148/86 97 11/14/19 04:00 98.0 F 74 20 190/70 96 11/14/19 00:00 98.2 F 74 24 175/72 98 11/13/19 23:15 88 L 11/13/19 21:14 98.4 F 80 20 139/94 92 L 11/13/19 20:00 97.8 F 79 28 H 188/79 92 L 11/13/19 18:31 80 20 168/78 94 L 11/13/19 18:01 95 11/13/19 18:00 80 20 194/94 94 L 11/13/19 17:39 86 22 205/72 95 11/13/19 17:30 81 18 190/64 93 L 11/13/19 17:00 93 H 20 184/55 93 L 11/13/19 16:05 76 18 188/61 94 L 11/13/19 15:24 83 20 174/52 95 11/13/19 15:20 83 20 174/52 95 11/13/19 14:16 98.5 F 88 88 20 203/79 97 Home Medications Medication Instructions Recorded Confirmed Last Taken Type Amlodipine Besylate 5 mg 10 mg PO EVENING MEAL 11/13/19 11/13/19 11/12/19 History [Norvasc 5 mg] Atorvastatin Calcium [Lipitor] 20 mg PO HS 11/13/19 11/13/19 11/12/19 History Furosemide 20 mg [Lasix 20 20 mg PO DAILY 11/13/19 11/13/19 11/13/19 History mg] HydrALAzine HCL 25 MG TAB 50 mg PO DAILY 11/13/19 11/14/19 Unknown History [Apresoline 25 MG TABLET] Carvedilol 25 mg PO BID 11/14/19 11/14/19 11/13/19 08:00 History Glimepiride 1 mg PO DAILY 11/14/19 11/14/19 11/13/19 08:00 History Current Medications Generic Name Dose Route Start Last Admin Trade Name Freq PRN Reason Stop Dose Admin Acetaminophen 650 mg 11/13/19 18:38 Tylenol 325 Mg PO 12/13/19 18:37 Q4H PRN PRN PAIN AND/OR FEVER Al Hydrox/Mg Hydrox/Simethicone 30 ml 11/13/19 18:38 Maalox Es 30 Ml Unit Dose PO 12/13/19 18:37 Q4H PRN PRN INDIGESTION Amlodipine Besylate 10 mg 11/14/19 22:00 Norvasc 5 Mg PO 12/14/19 21:59 HS BRYCE Carvedilol 25 mg 11/14/19 10:00 11/14/19 06:14 Coreg 12.5 Mg PO 12/14/19 09:59 25 mg BID BRYCE Administration Hydralazine HCl 50 mg 11/14/19 10:00 11/14/19 06:14 Apresoline 25 Mg Tablet PO 12/14/19 09:59 50 mg DAILY BRYCE Administration Hydromorphone HCl 30 mg 11/13/19 18:13 Dilaudid 1 Mg/1ml Store Operations Associate IV 11/18/19 18:12 UD PRN PAIN Isosorbide Mononitrate 60 mg 11/14/19 06:00 11/14/19 06:15 Imdur 60mg PO 12/14/19 05:59 Not Given QAM BRYCE Magnesium Hydroxide 30 - 60 ml 11/13/19 18:38 Milk Of Magnesia 30 Ml PO 12/13/19 18:37 QDP PRN CONSTIPATION Ondansetron HCl 4 mg 11/13/19 18:38 Zofran 4 Mg/2 Ml Vial IV 12/13/19 18:37 Q4H PRN PRN NAUSEA/VOMITING Senna/Docusate Sodium 2 udtab 11/13/19 18:38 Senokot-S Tablet PO 12/13/19 18:37 BID PRN PRN CONSTIPATION Discontinued Medications Generic Name Dose Route Start Last Admin Trade Name Freq PRN Reason Stop Dose Admin Amlodipine Besylate 5 mg 11/13/19 22:00 11/13/19 21:09 Norvasc 5 Mg PO 12/13/19 21:59 5 mg QPM BRYCE Administration Amlodipine Besylate Confirm 11/13/19 21:04 Norvasc 5 Mg Administered 11/13/19 21:05 Dose 5 mg .ROUTE .STK-MED ONE Aspirin 324 mg 11/13/19 18:17 11/13/19 19:09 Baby Aspirin 81 Mg Chew PO 11/13/19 18:18 Not Given STAT ONE Fentanyl Citrate 50 mcg 11/13/19 18:17 11/13/19 19:09 Sublimaze 100 Mcg/2 Ml IV 11/13/19 18:18 Not Given STAT ONE Hydralazine HCl 25 mg 11/14/19 06:00 Apresoline 25 Mg Tablet PO 12/14/19 05:59 DAILY BRYCE Hydralazine HCl Confirm 11/14/19 04:38 Apresoline 25 Mg Tablet Administered 11/14/19 04:39 Dose 25 mg .ROUTE .STK-MED ONE Sodium Chloride 1,000 mls @ 100 mls/hr 11/13/19 18:30 Sodium Chloride 0.9% 1000 Ml IV 12/13/19 18:29 .Q10H BRYCE Metoprolol Tartrate 50 mg 11/14/19 06:00 Lopressor 50 Mg PO 12/14/19 05:59 DAILY BRYCE Metoprolol Tartrate Confirm 11/14/19 04:38 Lopressor 50 Mg Administered 11/14/19 04:39 Dose 50 mg .ROUTE .STK-MED ONE Intake & Output (Last 24 hours) 11/11/19 11/12/19 11/13/19 11/14/19 11:59 11:59 11:59 11:59 Intake Total 440 Output Total 850 Balance -410 Weight 63.8 kg Laboratory Results (Last 24 hours) 11/14/19 11/14/19 11/14/19 05:24 05:24 01:41 WBC RBC Hgb Hct MCV MCH MCHC RDW Plt Count MPV Gran % Eos # (Auto) Absolute Lymphs (auto) Absolute Monos (auto) Lymphocytes % Monocytes % Eosinophils % Basophils % Absolute Granulocytes Basophils # PT INR APTT Sodium Potassium Chloride Carbon Dioxide Anion Gap BUN Creatinine Estimated GFR Glucose Lactic Acid Calcium Total Bilirubin AST ALT Alkaline Phosphatase Creatine Kinase Troponin I 0.033 0.034 NT-Pro-B Natriuret Pep Serum Total Protein Albumin Triglycerides 248 H Cholesterol 139 LDL Cholesterol 56 HDL Cholesterol 36 L Heart Disease Risk Ratio 3.9 Amylase Lipase 11/13/19 11/13/19 11/13/19 21:27 18:00 15:45 WBC RBC Hgb Hct MCV MCH MCHC RDW Plt Count MPV Gran % Eos # (Auto) Absolute Lymphs (auto) Absolute Monos (auto) Lymphocytes % Monocytes % Eosinophils % Basophils % Absolute Granulocytes Basophils # PT INR APTT Sodium Potassium Chloride Carbon Dioxide Anion Gap BUN Creatinine Estimated GFR Glucose Lactic Acid Calcium Total Bilirubin AST ALT Alkaline Phosphatase Creatine Kinase Troponin I 0.033 0.028 NT-Pro-B Natriuret Pep Serum Total Protein Albumin Triglycerides Cholesterol LDL Cholesterol HDL Cholesterol Heart Disease Risk Ratio Amylase 65 Lipase 81 11/13/19 11/13/19 11/13/19 15:45 15:45 15:45 WBC RBC Hgb Hct MCV MCH MCHC RDW Plt Count MPV Gran % Eos # (Auto) Absolute Lymphs (auto) Absolute Monos (auto) Lymphocytes % Monocytes % Eosinophils % Basophils % Absolute Granulocytes Basophils # PT 11.2 INR 0.99 APTT 29.4 Sodium 139 Potassium 3.5 Chloride 102 Carbon Dioxide 32 H Anion Gap 9.0 BUN 12 Creatinine 1.31 H Estimated GFR 40.6 Glucose 88 Lactic Acid Calcium 9.4 Total Bilirubin 0.70 AST 23 ALT 15 Alkaline Phosphatase 136 H Creatine Kinase 40 Troponin I 0.021 NT-Pro-B Natriuret Pep 2220 H Serum Total Protein 7.3 Albumin 4.1 Triglycerides Cholesterol LDL Cholesterol HDL Cholesterol Heart Disease Risk Ratio Amylase Lipase 11/13/19 11/13/19 15:45 14:59 WBC 6.8 RBC 3.37 L Hgb 11.2 L Hct 34.2 L MCV 101.5 H MCH 33.2 H MCHC 32.7 RDW 13.2 Plt Count 164 MPV 9.5 Gran % 62.1 Eos # (Auto) 0.38 Absolute Lymphs (auto) 1.31 Absolute Monos (auto) 0.83 Lymphocytes % 19.4 L Monocytes % 12.3 H Eosinophils % 5.6 H Basophils % 0.6 Absolute Granulocytes 4.19 Basophils # 0.04 PT INR APTT Sodium Potassium Chloride Carbon Dioxide Anion Gap BUN Creatinine Estimated GFR Glucose Lactic Acid 0.8 Calcium Total Bilirubin AST ALT Alkaline Phosphatase Creatine Kinase Troponin I NT-Pro-B Natriuret Pep Serum Total Protein Albumin Triglycerides Cholesterol LDL Cholesterol HDL Cholesterol Heart Disease Risk Ratio Amylase Lipase Orders (Last 24 hours) Category Date Time Status Bedrest with BRP/BSC ROUTINE Activity 11/13/19 18:38 Active [employer] STAT Care 11/13/19 14:57 Completed Code Status Order ROUTINE Care 11/13/19 18:38 Active EKG-ER Only STAT Care 11/13/19 14:57 Completed IV Care Q6H Care 11/13/19 18:38 Active IV Insertion STAT Care 11/13/19 14:57 Completed Implement Chest Pain Pathway ROUTINE Care 11/13/19 18:[address] in Observation ROUTINE Care 11/13/19 18:38 Active Que Torres, Apply ROUTINE Care 11/13/19 18:38 Active Telemetry q6h Care 11/13/19 18:38 Active Weight,Daily 0600 Care 11/13/19 18:38 Active CHEST 1 VIEW (PORTABLE) Stat Exams 11/13/19 14:57 Completed AMYLASE Stat Lab 11/13/19 15:45 Completed CBC W DIFF Stat Lab 11/13/19 15:45 Completed CK-Creatinine Phosphokinase Stat Lab 11/13/19 15:45 Completed CMP Stat Lab 11/13/19 15:45 Completed LIPASE Stat Lab 11/13/19 15:45 Completed LIPID PROFILE AM.LAB Lab 11/14/19 05:24 Completed Lactic Acid Stat Lab 11/13/19 14:59 Completed NT PRO BNP Stat Lab 11/13/19 15:45 Completed PROTIME WITH INR Stat Lab 11/13/19 15:45 Completed PTT Stat Lab 11/13/19 15:45 Completed TROPONIN Q3H Lab 11/13/19 15:45 Completed TROPONIN Q3H Lab 11/13/19 18:00 Completed TROPONIN Q3H Lab 11/13/19 21:27 Completed TROPONIN Q3H Lab 11/14/19 01:41 Completed TROPONIN Q3H Lab 11/14/19 05:24 Completed Acetaminophen 325 mg [Tylenol 325 mg] Med 11/13/19 18:38 Active 650 mg PO Q4H PRN PRN Amlodipine Besylate 5 mg [Norvasc 5 mg] Med 11/14/19 22:00 Active 10 mg PO HS Amlodipine Besylate 5 mg [Norvasc 5 mg] Med 11/13/19 21:04 Discontinued 5 mg .ROUTE .STK-MED ONE Amlodipine Besylate 5 mg [Norvasc 5 mg] Med 11/13/19 22:00 Discontinued 5 mg PO QPM Aspirin 81 gm Chew [Baby Aspirin 81 mg Chew] Med 11/13/19 18:17 Discontinued 324 mg PO STAT ONE Carvedilol 12.5 mg [Coreg 12.5 mg] Med 11/14/19 10:00 Active 25 mg PO BID Fentanyl Citrate 100 Mcg/2 ml* [Sublimaze 100 Mcg/2 ml* Med 11/13/19 18:17 Discontinued ] 50 mcg IV STAT ONE HydrALAzine HCL 25 MG TAB [Apresoline 25 MG TABLET Med 11/14/19 04:38 Discontinued *] 25 mg .ROUTE .STK-MED ONE HydrALAzine HCL 25 MG TAB [Apresoline 25 MG TABLET Med 11/14/19 06:00 Discontinued *] 25 mg PO DAILY HydrALAzine HCL 25 MG TAB [Apresoline 25 MG TABLET Med 11/14/19 10:00 Active *] 50 mg PO DAILY Hydromorphone HCl 30 mg/30 ml* [Dilaudid 1 mg/1Ml ACCOUNTING FILE CLERK Med 11/13/19 18:13 Active *] 30 mg IV UD PRN Isosorbide Mononitrate 60 mg [Imdur 60MG] Med 11/14/19 06:00 Active 60 mg PO QAM Mag Hydrox/Al Hydrox/Simeth [Maalox Es 30 ml Unit Med 11/13/19 18:38 Active Dose] 30 ml PO Q4H PRN PRN Magnesium Hydroxide 30 ml [Milk of Magnesia 30 ml Med 11/13/19 18:38 Active ] 30 - 60 ml PO QDP PRN Metoprolol Tartrate 50 mg [Lopressor 50 MG] Med 11/14/19 04:38 Discontinued 50 mg .ROUTE .STK-MED ONE Metoprolol Tartrate 50 mg [Lopressor 50 MG] Med 11/14/19 06:00 Discontinued 50 mg PO DAILY NaCl 0.9% 1000 ml [Sodium Chloride 0.9% 1000 ML] 1,000 Med 11/13/19 18:30 Discontinued ml IV 100 mls/hr Ondansetron HCl 4 mg/2 ml [Zofran 4 MG/2 ML VIAL] Med 11/13/19 18:38 Active 4 mg IV Q4H PRN PRN Senna/Docusate Sodium Tab [Senokot-S Tablet] Med 11/13/19 18:38 Active 2 udtab PO BID PRN PRN EKG DAILY RT 11/14/19 05:00 Completed EKG DAILY RT 11/15/19 05:00 Active EKG DAILY RT 11/16/19 05:00 Active EKG Q8HX2,QAMX3,PRN RT 11/13/19 18:38 Completed EKG ROUTINE RT 11/13/19 22:30 Completed Oxygen Nasal Cannula 2 lpm RT 11/13/19 23:15 Active Pulse Oximetry CONTINUOUS RT 11/13/19 18:38 Active Patient Care Notes (Last 24 hours) 11/14/19 05:59 Nursing Note by Rossi Holt Called Dr Harman regarding patient elevated BP. Received okay to give morning hypertension meds now. Initialized on 11/14/19 05:59 - END OF NOTE 11/14/19 04:59 Nursing Note by Rossi Holt Reviewed med list with patient and compared to external pharmacy record. Patient PM dose of Norvasc should have been 10 mg. Med list updated and reprinted. Initialized on 11/14/19 04:59 - END OF NOTE 11/13/19 20:58 Nursing Note by Rossi Holt Called Dr Harman about patient elevated blood pressure. Received new order to start home BP meds, give home dose of Norvasc 5mg PO now. Initialized on 11/13/19 20:58 - END OF NOTE 11/13/19 20:25 (created 11/14/19 03:20) Nursing Note by Rossi Holt Patient declined to have Dilaudid ACCOUNTING FILE CLERK as ordered. States her pain is not severe. Initialized on 11/14/19 03:20 - END OF NOTE (2) Chest pain Current Visit: Yes Status: Acute Qualifiers: Chest pain type: unspecified Qualified Code(s): R07.9 - Chest pain, unspecified Code(s): R07.9 - CHEST PAIN, UNSPECIFIED (3) Acute on chronic renal failure Current Visit: Yes Status: Acute Onset Date: ~08/03/18 Qualifiers: Chronic kidney disease stage: on chronic dialysis Code(s): N17.9 - ACUTE KIDNEY FAILURE, UNSPECIFIED; N18.9 - CHRONIC KIDNEY DISEASE, UNSPECIFIED (4) CHF (congestive heart failure), NYHA class III Current Visit: No Status: Acute Qualifiers: Congestive heart failure type: combined Congestive heart failure chronicity : chronic Qualified Code(s): I50.42 - Chronic combined systolic (congestive) and diastolic (congestive) heart failure Code(s): I50.9 - HEART FAILURE, UNSPECIFIED (5) COPD (chronic obstructive pulmonary disease) Current Visit: No Status: Acute (6) Stage 5 chronic kidney disease Current Visit: No Status: Acute Code(s): N18.5 - CHRONIC KIDNEY DISEASE, STAGE 5
[2019-11-14] MEDS ORDERED: NON-FORMULARY ITEM (Sodium Bicarbonate 650 MG) PO SCH (10:00)
[2019-11-14] MEDS ORDERED: NON-FORMULARY ITEM (Aspirin [Aspirin] 81 MG) PO SCH (10:00)
[2019-11-14] MEDS ORDERED: NON-FORMULARY ITEM (Glimepiride [Glimepiride] 1 MG) PO SCH (10:00)
[2019-11-14] MEDS: LASIX 20 MG PO SCH (10:23)
[2019-11-14] MEDS: ZYLOPRIM 100 MG PO SCH (10:23)
[2019-11-14] MEDS: ECOTRIN 81 MG PO SCH (10:23)
[2019-11-14] MEDS: Amaryl 2 MG PO SCH (10:24)
[2019-11-14] MEDS: NON-FORMULARY ITEM PO SCH (10:25)
[2019-11-14] MEDS ORDERED: ZOCOR 20MG PO SCH (22:00)
[2019-11-14] MEDS ORDERED: NORVASC 5 MG PO SCH (22:00)
[2019-11-14] MEDS ORDERED: NON-FORMULARY ITEM (Atorvastatin Calcium [Lipitor] 20 MG) PO SCH (22:00)
--- NOTE | 2019-11-15 07:28 | PCM.NOTE ---
Date and Time: 11/15/19725 Subjective Assessment: doing ok - Review of Systems Constitutional: No Fever, No Chills Eyes: No Symptoms Ears, Nose, & Throat: No Symptoms Respiratory: No Cough, No Short Of Breath Cardiac: No Chest Pain, No Edema, No Syncope Abdominal/Gastrointestinal: No Abdominal Pain, No Nausea, No Vomiting, No Diarrhea Genitourinary Symptoms: No Dysuria Musculoskeletal: No Back Pain, No Neck Pain Skin: No Rash Neurological: No Dizziness, No Focal Weakness, No Sensory Changes Psychological: No Symptoms Endocrine: No Symptoms Hematologic/Lymphatic: No Symptoms Immunological/Allergic: No Symptoms Objective Exam General Appearance: no apparent distress, alert Neurologic Exam: alert, oriented x 3, cooperative, normal mood/affect, nml cerebellar function, sensation nml, No motor deficits Skin Exam: normal color, warm, dry Eye Exam: PERRL, EOMI, eyes nml inspection Ears, Nose, Throat Exam: normal ENT inspection, pharynx normal, moist mucous membranes Neck Exam: normal inspection, non-tender, supple, full range of motion Respiratory Exam: normal breath sounds, lungs clear, No respiratory distress Cardiovascular Exam: regular rate/rhythm, normal heart sounds Gastrointestinal/Abdomen Exam: soft, No tenderness, No mass Extremity Exam: normal inspection, normal range of motion Back Exam: normal inspection, normal range of motion, No CVA tenderness, No vertebral tenderness Pelvic Exam: deferred Rectal Exam: deferred OBJECTIVE DATA Vital Signs: Vital Signs - 24 hr Temp Pulse Resp BP Pulse Ox 11/15/19 07:19 97.8 F 88 18 177/68 96 11/15/19 03:47 98.4 F 67 19 124/56 99 11/14/19 23:48 98.7 F 70 20 160/50 98 11/14/19 21:25 97 11/14/19 20:00 98.3 F 77 23 158/60 98 11/14/19 16:13 98 F 87 20 168/76 96 11/14/19 12:38 98 F 86 20 178/82 97 11/14/19 09:58 97 Oxygen-Last 24 hours O2 Percentage 2 Liters = 28% O2 Percentage 2 Liters = 28% O2 Percentage 2 Liters = 28% Pain Assessment - Last Documented Pain Intensity 0 Pain Scale Used 0-10 Pain Scale Intake and Output: Intake & Output 11/12/19 11/13/19 11/14/19 12/29/19 11:59 11:59 11:59 11:59 Intake Total 440 1080 Output Total 850 1700 Balance -410 -620 Weight 63.8 kg 64 kg Radiology Exams: Radiology Procedures Category Date Time Status CHEST 1 VIEW (PORTABLE) Stat Exams 11/13/19 14:57 Completed Assessment/Plan (1) Hypertensive cardiovascular-renal disease Current Visit: Yes Status: Acute Qualifiers: Hypertensive chronic kidney disease stage: stage 5 chronic kidney disease or end stage renal disease Assessment & Plan: Chief Complaint Diagnosis Chest pain rule out Allergies Allergy/AdvReac Type Severity Reaction Status Date / Time cephalexin AdvReac Verified 08/07/18 11:32 dextromethorphan AdvReac Verified 08/07/18 11:32 [From Mucinex DM] guaifenesin [From Mucinex DM] AdvReac Verified 08/07/18 11:32 Vital Signs (Last 24 hours) Temp Pulse Resp BP Pulse Ox 11/15/19 07:19 97.8 F 88 18 177/68 96 11/15/19 03:47 98.4 F 67 19 124/56 99 11/14/19 23:48 98.7 F 70 20 160/50 98 11/14/19 21:25 97 11/14/19 20:00 98.3 F 77 23 158/60 98 11/14/19 16:13 98 F 87 20 168/76 96 11/14/19 12:38 98 F 86 20 178/82 97 11/14/19 09:58 97 Home Medications Medication Instructions Recorded Confirmed Last Taken Type Amlodipine Besylate 5 mg 10 mg PO EVENING MEAL 11/13/19 11/13/19 11/12/19 History [Norvasc 5 mg] Atorvastatin Calcium [Lipitor] 20 mg PO HS 11/13/19 11/13/19 11/12/19 History Furosemide 20 mg [Lasix 20 20 mg PO DAILY 11/13/19 11/13/19 11/13/19 History mg] HydrALAzine HCL 25 MG TAB 50 mg PO DAILY 11/13/19 11/14/19 Unknown History [Apresoline 25 MG TABLET] Carvedilol 25 mg PO BID 11/14/19 11/14/19 11/13/19 08:00 History Glimepiride 1 mg PO DAILY 11/14/19 11/14/19 11/13/19 08:00 History Current Medications Generic Name Dose Route Start Last Admin Trade Name Freq PRN Reason Stop Dose Admin Acetaminophen 650 mg 11/13/19 18:38 Tylenol 325 Mg PO 12/13/19 18:37 Q4H PRN PRN PAIN AND/OR FEVER Al Hydrox/Mg Hydrox/Simethicone 30 ml 11/13/19 18:38 Maalox Es 30 Ml Unit Dose PO 12/13/19 18:37 Q4H PRN PRN INDIGESTION Allopurinol 100 mg 11/14/19 10:00 11/14/19 10:23 Zyloprim 100 Mg PO 12/14/19 09:59 100 mg DAILY BRYCE Administration Amlodipine Besylate 10 mg 11/14/19 22:00 11/14/19 21:09 Norvasc 5 Mg PO 12/14/19 21:59 10 mg HS BRYCE Administration Aspirin 81 mg 11/14/19 10:00 11/14/19 10:23 Ecotrin 81 Mg PO 12/14/19 09:59 81 mg DAILY BRYCE Administration Carvedilol 25 mg 11/14/19 10:00 11/14/19 21:09 Coreg 12.5 Mg PO 12/14/19 09:59 25 mg BID BRYCE Administration Furosemide 20 mg 11/14/19 10:00 11/14/19 10:23 Lasix 20 Mg PO 12/14/19 09:59 20 mg DAILY BRYCE Administration Glimepiride 1 mg 11/14/19 09:00 11/14/19 10:24 Amaryl 2 Mg PO 12/14/19 08:59 1 mg BREAKFAST BRYCE Administration Hydralazine HCl 50 mg 11/14/19 10:00 11/14/19 06:14 Apresoline 25 Mg Tablet PO 12/14/19 09:59 50 mg DAILY BRYCE Administration Hydromorphone HCl 30 mg 11/13/19 18:13 Dilaudid 1 Mg/1ml 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 Bicarb 650mg 1 each 11/14/19 10:00 11/14/19 10:25 Tablet PO 12/14/19 09:59 1 each DAILY BRYCE Administration Ondansetron HCl 4 mg 11/13/19 18:38 Zofran 4 Mg/2 Ml Vial IV 12/13/19 18:37 Q4H PRN PRN NAUSEA/VOMITING Senna/Docusate Sodium 2 udtab 11/13/19 18:38 Senokot-S Tablet PO 12/13/19 18:37 BID PRN PRN CONSTIPATION Simvastatin 20 mg 11/14/19 22:00 11/14/19 21:09 Zocor 20mg PO 12/14/19 21:59 20 mg HS BRYCE Administration Discontinued Medications Generic Name Dose Route Start Last Admin Trade Name Freq PRN Reason Stop Dose Admin Amlodipine Besylate 5 mg 11/13/19 22:00 11/13/19 21:09 Norvasc 5 Mg PO 12/13/19 21:59 5 mg QPM BRYCE Administration Amlodipine Besylate Confirm 11/13/19 21:04 Norvasc 5 Mg Administered 11/13/19 21:05 Dose 5 mg .ROUTE .STK-MED ONE Aspirin 324 mg 11/13/19 18:17 11/13/19 19:09 Baby Aspirin 81 Mg Chew PO 11/13/19 18:18 Not Given STAT ONE Fentanyl Citrate 50 mcg 11/13/19 18:17 11/13/19 19:09 Sublimaze 100 Mcg/2 Ml IV 11/13/19 18:18 Not Given STAT ONE Hydralazine HCl 25 mg 11/14/19 06:00 Apresoline 25 Mg Tablet PO 12/14/19 05:59 DAILY BRYCE Hydralazine HCl Confirm 11/14/19 04:38 Apresoline 25 Mg Tablet Administered 11/14/19 04:39 Dose 25 mg .ROUTE .STK-MED ONE Sodium Chloride 1,000 mls @ 100 mls/hr 11/13/19 18:30 Sodium Chloride 0.9% 1000 Ml IV 12/13/19 18:29 .Q10H BRYCE Metoprolol Tartrate 50 mg 11/14/19 06:00 Lopressor 50 Mg PO 12/14/19 05:59 DAILY BRYCE Metoprolol Tartrate Confirm 11/14/19 04:38 Lopressor 50 Mg Administered 11/14/19 04:39 Dose 50 mg .ROUTE .STK-MED ONE Non-Formulary Medication 650 mg 11/14/19 10:00 Sodium Bicarbonate PO 12/14/19 09:59 DAILY BRYCE Intake & Output (Last 24 hours) 11/12/19 11/13/19 11/14/19 11/15/19 11:59 11:59 11:59 11:59 Intake Total 440 1080 Output Total 850 1700 Balance -410 -620 Weight 63.8 kg 64 kg Orders (Last 24 hours) Category Date Time Status Allopurinol 100 mg [Zyloprim 100 mg] Med 11/14/19 10:00 Active 100 mg PO DAILY Amlodipine Besylate 5 mg [Norvasc 5 mg] Med 11/14/19 22:00 Active 10 mg PO HS Aspirin EC 81 mg [Ecotrin 81 mg] Med 11/14/19 10:00 Active 81 mg PO DAILY Carvedilol 12.5 mg [Coreg 12.5 mg] Med 11/14/19 10:00 Active 25 mg PO BID Furosemide 20 mg [Lasix 20 mg] Med 11/14/19 10:00 Active 20 mg PO DAILY Glimepiride 2 mg [Amaryl 2 MG] Med 11/14/19 09:00 Active 1 mg PO BREAKFAST HydrALAzine HCL 25 MG TAB [Apresoline 25 MG TABLET Med 11/14/19 10:00 Active *] 50 mg PO DAILY Non-Formulary Drug [Non-Formulary Item] Med 11/14/19 10:00 Active 1 each PO DAILY Simvastatin 20Mg [Zocor 20Mg] Med 11/14/19 22:00 Active 20 mg PO HS Sodium Bicarbonate Med 11/14/19 10:00 Discontinued 650 mg PO DAILY EKG DAILY RT 11/15/19 05:00 Completed EKG DAILY RT 11/16/19 05:00 Active (2) Chest pain Current Visit: Yes Status: Acute Qualifiers: Chest pain type: unspecified Qualified Code(s): R07.9 - Chest pain, unspecified Code(s): R07.9 - CHEST PAIN, UNSPECIFIED (3) Acute on chronic renal failure Current Visit: Yes Status: Acute Onset Date: ~08/03/18 Qualifiers: Chronic kidney disease stage: on chronic dialysis Code(s): N17.9 - ACUTE KIDNEY FAILURE, UNSPECIFIED; N18.9 - CHRONIC KIDNEY DISEASE, UNSPECIFIED (4) CHF (congestive heart failure), NYHA class III Current Visit: No Status: Acute Qualifiers: Congestive heart failure type: combined Congestive heart failure chronicity : chronic Qualified Code(s): I50.42 - Chronic combined systolic (congestive) and diastolic (congestive) heart failure Code(s): I50.9 - HEART FAILURE, UNSPECIFIED (5) COPD (chronic obstructive pulmonary disease) Current Visit: No Status: Acute (6) Stage 5 chronic kidney disease Current Visit: No Status: Acute Code(s): N18.5 - CHRONIC KIDNEY DISEASE, STAGE 5
[2019-11-15] MEDS: Amaryl 2 MG PO SCH (08:19)
[2019-11-15] MEDS: COREG 12.5 MG PO SCH (10:04)
[2019-11-15] MEDS: Imdur 60MG PO SCH (10:04)
[2019-11-15] MEDS: LASIX 20 MG PO SCH (10:05)
[2019-11-15] MEDS: Apresoline 25 MG TABLET PO SCH (10:05)
[2019-11-15] MEDS: ECOTRIN 81 MG PO SCH (10:05)
[2019-11-15] MEDS: NON-FORMULARY ITEM PO SCH (10:06)
[2019-11-15] MEDS: ZYLOPRIM 100 MG PO SCH (10:06)
[2019-11-15 12:53] VITALS: BP 170/86; PULSE 80; O2SAT 95
--- NOTE | 2019-11-15 14:18 | PCM.DS ---
Discharge Summary Date of Admission: 11/13/19 18:29 Admitting Physician: MARLO BROOKS Primary Care Provider: MARLO BROOKS Allergies Allergies cephalexin Adverse Reaction (Verified 08/07/18 11:32) dextromethorphan [From Mucinex DM] Adverse Reaction (Verified 08/07/18 11:32) guaifenesin [From Mucinex DM] Adverse Reaction (Verified 08/07/18 11:32) Hospital Summary - Hospital Course Hospital Course: Chief Complaint Diagnosis Chest pain rule out Allergies Allergy/AdvReac Type Severity Reaction Status Date / Time cephalexin AdvReac Verified 08/07/18 11:32 dextromethorphan AdvReac Verified 08/07/18 11:32 [From Mucinex DM] guaifenesin [From Mucinex DM] AdvReac Verified 08/07/18 11:32 Vital Signs (Last 24 hours) Temp Pulse Resp BP Pulse Ox 11/15/19 12:52 97.8 F 80 20 170/86 95 11/15/19 07:55 96 11/15/19 07:19 97.8 F 88 18 177/68 96 11/15/19 03:47 98.4 F 67 19 124/56 99 11/14/19 23:48 98.7 F 70 20 160/50 98 11/14/19 21:25 97 11/14/19 20:00 98.3 F 77 23 158/60 98 11/14/19 16:13 98 F 87 20 168/76 96 Home Medications Medication Instructions Recorded Confirmed Last Taken Type Amlodipine Besylate 5 mg 10 mg PO EVENING MEAL 11/13/19 11/13/19 11/12/19 History [Norvasc 5 mg] Atorvastatin Calcium [Lipitor] 20 mg PO HS 11/13/19 11/13/19 11/12/19 History Furosemide 20 mg [Lasix 20 20 mg PO DAILY 11/13/19 11/13/19 11/13/19 History mg] HydrALAzine HCL 25 MG TAB 50 mg PO DAILY 11/13/19 11/14/19 Unknown History [Apresoline 25 MG TABLET] Carvedilol 25 mg PO BID 11/14/19 11/14/19 11/13/19 08:00 History Glimepiride 1 mg PO DAILY 11/14/19 11/14/19 11/13/19 08:00 History Current Medications Generic Name Dose Route Start Last Admin Trade Name Freq PRN Reason Stop Dose Admin Acetaminophen 650 mg 11/13/19 18:38 Tylenol 325 Mg PO 12/13/19 18:37 Q4H PRN PRN PAIN AND/OR FEVER Al Hydrox/Mg Hydrox/Simethicone 30 ml 11/13/19 18:38 Maalox Es 30 Ml Unit Dose PO 12/13/19 18:37 Q4H PRN PRN INDIGESTION Allopurinol 100 mg 11/14/19 10:00 11/15/19 10:06 Zyloprim 100 Mg PO 12/14/19 09:59 100 mg DAILY BRYCE Administration Amlodipine Besylate 10 mg 11/14/19 22:00 11/14/19 21:09 Norvasc 5 Mg PO 12/14/19 21:59 10 mg HS BRYCE Administration Aspirin 81 mg 11/14/19 10:00 11/15/19 10:05 Ecotrin 81 Mg PO 12/14/19 09:59 81 mg DAILY BRYCE Administration Carvedilol 25 mg 11/14/19 10:00 11/15/19 10:04 Coreg 12.5 Mg PO 12/14/19 09:59 25 mg BID BRYCE Administration Furosemide 20 mg 11/14/19 10:00 11/15/19 10:05 Lasix 20 Mg PO 12/14/19 09:59 20 mg DAILY BRYCE Administration Glimepiride 1 mg 11/14/19 09:00 11/15/19 08:19 Amaryl 2 Mg PO 12/14/19 08:59 1 mg BREAKFAST BRYCE Administration Hydralazine HCl 50 mg 11/14/19 10:00 11/15/19 10:05 Apresoline 25 Mg Tablet PO 12/14/19 09:59 50 mg DAILY BRYCE Administration Hydromorphone HCl 30 mg 11/13/19 18:13 Dilaudid 1 Mg/1ml 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 Bicarb 650mg 1 each 11/14/19 10:00 11/15/19 10:06 Tablet PO 12/14/19 09:59 1 each DAILY BRYCE Administration Ondansetron HCl 4 mg 11/13/19 18:38 Zofran 4 Mg/2 Ml Vial IV 12/13/19 18:37 Q4H PRN PRN NAUSEA/VOMITING Senna/Docusate Sodium 2 udtab 11/13/19 18:38 Senokot-S Tablet PO 12/13/19 18:37 BID PRN PRN CONSTIPATION Simvastatin 20 mg 11/14/19 22:00 11/14/19 21:09 Zocor 20mg PO 12/14/19 21:59 20 mg HS BRYCE Administration Discontinued Medications Generic Name Dose Route Start Last Admin Trade Name Freq PRN Reason Stop Dose Admin Amlodipine Besylate 5 mg 11/13/19 22:00 11/13/19 21:09 Norvasc 5 Mg PO 12/13/19 21:59 5 mg QPM BRYCE Administration Amlodipine Besylate Confirm 11/13/19 21:04 Norvasc 5 Mg Administered 11/13/19 21:05 Dose 5 mg .ROUTE .STK-MED ONE Aspirin 324 mg 11/13/19 18:17 11/13/19 19:09 Baby Aspirin 81 Mg Chew PO 11/13/19 18:18 Not Given STAT ONE Fentanyl Citrate 50 mcg 11/13/19 18:17 11/13/19 19:09 Sublimaze 100 Mcg/2 Ml IV 11/13/19 18:18 Not Given STAT ONE Hydralazine HCl 25 mg 11/14/19 06:00 Apresoline 25 Mg Tablet PO 12/14/19 05:59 DAILY BRYCE Hydralazine HCl Confirm 11/14/19 04:38 Apresoline 25 Mg Tablet Administered 11/14/19 04:39 Dose 25 mg .ROUTE .STK-MED ONE Sodium Chloride 1,000 mls @ 100 mls/hr 12/27/19 18:30 Sodium Chloride 0.9% 1000 Ml IV 12/13/19 18:29 .Q10H BRYCE Metoprolol Tartrate 50 mg 11/14/19 06:00 Lopressor 50 Mg PO 12/14/19 05:59 DAILY BRYCE Metoprolol Tartrate Confirm 11/14/19 04:38 Lopressor 50 Mg Administered 11/14/19 04:39 Dose 50 mg .ROUTE .STK-MED ONE Non-Formulary Medication 650 mg 11/14/19 10:00 Sodium Bicarbonate PO 12/14/19 09:59 DAILY BRYCE Intake & Output (Last 24 hours) 11/13/19 11/14/19 11/15/19 11/16/19 11:59 11:59 11:59 11:59 Intake Total 440 1320 240 Output Total 850 1900 350 Balance -410 -580 -110 Weight 63.8 kg 64 kg Orders (Last 24 hours) Category Date Time Status Discharge Routine Discharge 11/15/19 08:10 Ordered Amlodipine Besylate 5 mg [Norvasc 5 mg] Med 11/14/19 22:00 Active 10 mg PO HS Simvastatin 20Mg [Zocor 20Mg] Med 11/14/19 22:00 Active 20 mg PO HS EKG DAILY RT 11/15/19 05:00 Completed EKG DAILY RT 11/16/19 05:00 Active Patient Care Notes (Last 24 hours) 11/15/19 09:35 Nursing Note by Josh Hager Talked to pt about DC, pt states she cant get a ride until afternoon Initialized on 11/15/19 09:35 - END OF NOTE - Vitals & Intake/Output Vital Signs: Vital Signs Temperature 97.8 F 11/15/19 12:52 Pulse Rate 80 11/15/19 12:52 Respiratory Rate 20 11/15/19 12:52 Blood Pressure 170/86 11/15/19 12:52 O2 Sat by Pulse Oximetry 95 11/15/19 12:52 Oxygen-Last Documented O2 Percentage 2 Liters = 28% Intake & Output: Intake & Output 11/13/19 11/14/19 11/15/19 11/16/19 11:59 11:59 11:59 11:59 Intake Total 440 1320 240 Output Total 850 1900 350 Balance -410 -580 -110 Weight 63.8 kg 64 kg - Lab Result Diagrams: 11/13/19 15:45 11/13/19 15:45 - Radiology Exams Ordered Rad Exams-Entire Visit: Radiology Procedures Category Date Time Status CHEST 1 VIEW (PORTABLE) Stat Exams 11/13/19 14:57 Completed - Procedures and Test Procedures and Tests throughout Hospitalization: Therapy Orders & Screens 11/13/19 18:38 EKG Q8HX2,QAMX3,PRN Comment: 11/13/19 22:30 EKG ROUTINE Comment: Diagnosis: Chest pain rule out 11/13/19 23:15 Oxygen Nasal Cannula 2 lpm Comment: Diagnosis: Chest pain rule out 11/14/19 05:00 EKG DAILY Comment: Diagnosis: Chest pain rule out 11/15/19 05:00 EKG DAILY Comment: Diagnosis: Chest pain rule out 11/16/19 05:00 EKG DAILY Comment: Diagnosis: Chest pain rule out Discharge Exam General Appearance: no apparent distress, alert Neurologic Exam: alert, oriented x 3, cooperative, normal mood/affect, nml cerebellar function, sensation nml, No motor deficits Eye Exam: PERRL, EOMI, eyes nml inspection Ears, Nose, Throat Exam: normal ENT inspection, pharynx normal, moist mucous membranes Neck Exam: normal inspection, non-tender, supple, full range of motion Respiratory Exam: normal breath sounds, lungs clear, No respiratory distress Cardiovascular Exam: regular rate/rhythm, normal heart sounds Gastrointestinal/Abdomen Exam: soft, No tenderness, No mass Pelvic Exam: deferred Rectal Exam: deferred Back Exam: normal inspection, normal range of motion, No CVA tenderness, No vertebral tenderness Extremity Exam: normal inspection, normal range of motion Skin Exam: normal color, warm, dry Final Diagnosis/Problem List - Final Discharge Diagnosis/Problem (1) Hypertensive cardiovascular-renal disease Current Visit: Yes Status: Chronic Priority: High (2) Chest pain Current Visit: Yes Status: Resolved Code(s): R07.9 - CHEST PAIN, UNSPECIFIED (3) Acute on chronic renal failure Current Visit: Yes Status: Resolved Onset Date: ~08/03/18 Code(s): N17.9 - ACUTE KIDNEY FAILURE, UNSPECIFIED; N18.9 - CHRONIC KIDNEY DISEASE, UNSPECIFIED (4) CHF (congestive heart failure), NYHA class III Current Visit: Yes Status: Chronic Code(s): I50.9 - HEART FAILURE, UNSPECIFIED (5) COPD (chronic obstructive pulmonary disease) Current Visit: Yes Status: Chronic (6) Stage 5 chronic kidney disease Current Visit: Yes Status: Chronic Code(s): N18.5 - CHRONIC KIDNEY DISEASE, STAGE 5 - Discharge Discharge Date: 11/15/19 Disposition: Home, Self-Care Condition: Stable Prescriptions: Continue Isosorbide Mononitrate [Isosorbide Mononitrate ER] 60 mg PO DAILY Aspirin 81 mg PO DAILY Allopurinol 100 mg [Zyloprim 100 mg] 100 mg PO DAILY Sodium Bicarbonate 650 mg PO DAILY Amlodipine Besylate 5 mg [Norvasc 5 mg] 10 mg PO EVENING MEAL Furosemide 20 mg [Lasix 20 mg] 20 mg PO DAILY Atorvastatin Calcium [Lipitor] 20 mg PO HS HydrALAzine HCL 25 MG TAB [Apresoline 25 MG TABLET] 50 mg PO DAILY Glimepiride 1 mg PO DAILY Carvedilol 25 mg PO BID Instructions: Chest Pain That Is Not Caused by the Heart (DC) Follow up with: MARLO BROOKS MD [Primary Care Provider] - 1 Week
== END 2019-11-15 14:50 | disposition home or self-care (01) ==
LOC: ED 14:11 → MED SURG 18:29
PROVIDERS: ADMIT General Practice; ATTEND General Practice
DX: I13.2 Hypertensive heart and chronic kidney disease with heart failure and with stage 5 chronic kidney disease, or end stage renal disease (principal); R07.9 Chest pain, unspecified; J44.9 Chronic obstructive pulmonary disease, unspecified; Z79.899 Other long term (current) drug therapy; Z99.2 Dependence on renal dialysis; E11.9 Type 2 diabetes mellitus without complications; I25.2 Old myocardial infarction
CPT/HCPCS: 36000; 36415; 71045; 80053; 80061; 82150; 82550; 83605; 83690; 83721; 83880; 84484; 85025; 85610; 85730; 93005; 93041; 93268; 94762; 99285; G0378; A9270-GY

== ENCOUNTER 2020-01-27 13:14 | Emergency (ER) | payer MEDICARE, BC ==
[2020-01-27] MEDS ORDERED: MORPHINE SULFATE 2 MG INJ IV ONE (14:09)
[2020-01-27] MEDS ORDERED: Zofran 4 MG/2 ML VIAL IV ONE (14:09)
--- NOTE | 2020-01-27 14:09 | ERPHSYRPT ---
- History of Present Illness Time Seen by Provider: 01/27/20 13:40 Source: patient Exam Limitations: no limitations Patient Subjective Stated Complaint: Pt stated that she woke up this morning at 0530 and was not feeling well and has gotten progressively worse as the day has went on, headache, fever, coughing, low left chest pain, nauseaous Triage Nursing Assessment: Pt brought to the ER by her sister, hypertensive, tachypnea, crackles in the right lungs, denies being out of the country or being around anyone that has been sick, denies vomiting, states that she thinks she would feel better if she did vomit, has not taken any of her meds today, pulses normal Physician History: Patient is a 89-year-old female presents to our ED with complaints of generalized fatigue and malaise. Started this morning at approximately 5:30 AM. Patient describes shortness of breath. Some left-sided chest discomfort. No trauma no fevers. Patient advises that she is got end-stage renal disease. Patient receives hemodialysis Saturday and Saturday. She was previously Saturday however the Saturday session was eliminated for unclear reasons. Patient describes coughing. Left-sided chest pressure. Patient has a mild headache. Subjective fevers. Sister at bedside. They voiced no other complaints at this time. Timing/Duration: today Fever Severity: mild, moderate Associated Symptoms: abdominal pain, chest pain, confusion, weakness Allergies/Adverse Reactions: cephalexin Adverse Reaction (Verified 08/07/18 11:32) dextromethorphan [From Mucinex DM] Adverse Reaction (Verified 08/07/18 11:32) guaifenesin [From Mucinex DM] Adverse Reaction (Verified 08/07/18 11:32) Home Medications: Aspirin 81 mg PO DAILY 08/20/14 [History] Isosorbide Mononitrate [Isosorbide Mononitrate ER] 60 mg PO DAILY 08/20/14 [ History] Allopurinol 100 mg [Zyloprim 100 mg] 100 mg PO DAILY 07/27/18 [History] Amlodipine Besylate 5 mg [Norvasc 5 mg] 10 mg PO EVENING MEAL 11/13/19 [ History] Atorvastatin Calcium [Lipitor] 20 mg PO HS 11/13/19 [History] Furosemide 20 mg [Lasix 20 mg] 20 mg PO DAILY 11/13/19 [History] HydrALAzine HCL 25 MG TAB [Apresoline 25 MG TABLET] 50 mg PO DAILY [History] Glimepiride 1 mg PO DAILY 11/14/19 [History] carvediloL [Carvedilol] 25 mg PO BID 11/14/19 [History] Hx Tetanus, Diphtheria Vaccination/Date Given: Yes Hx Influenza Vaccination/Date Given: Yes Hx Pneumococcal Vaccination/Date Given: No - Review of Systems Constitutional: No Fever, No Chills Eyes: No Symptoms Ears, Nose, & Throat: No Symptoms Respiratory: No Symptoms, No Cough, No Dyspnea Cardiac: No Symptoms, No Chest Pain, No Edema, No Syncope Abdominal/Gastrointestinal: No Symptoms, No Abdominal Pain, No Nausea, No Vomiting, No Diarrhea Genitourinary Symptoms: No Symptoms, No Dysuria Musculoskeletal: No Symptoms, No Back Pain, No Neck Pain Skin: No Rash Neurological: No Symptoms, No Dizziness, No Focal Weakness, No Sensory Changes Psychological: No Symptoms Endocrine: No Symptoms Hematologic/Lymphatic: No Symptoms Immunological/Allergic: No Symptoms All Other Systems: Reviewed and Negative - Past Medical History Pertinent Past Medical History: Yes Neurological History: No Pertinent History ENT History: No Pertinent History Cardiac History: Hypertension, Myocardial Infarction ([place]) Respiratory History: No Pertinent History Endocrine Medical History: Adrenal Insufficiency, Diabetes Type II Musculoskeletal History: Osteoarthritis GI Medical History: Colitis, GERD, Other History: Renal Disease Psycho-Social History: No Pertinent History Female Reproductive Disorders: No Pertinent History Other Medical History: Pt has been going to kidney doctors, last check up the doctor stated her kidneys were working fine. skin cancer unknown which one - Past Surgical History Past Surgical History: Yes Neuro Surgical History: No Pertinent History Cardiac: No Pertinent History Respiratory: No Pertinent History Gastrointestinal: Cholecystectomy Genitourinary: No Pertinent History Musculoskeletal: No Pertinent History Female Surgical History: Hysterectomy Other Surgical History: pt states she had skin cancer removed off her face, hysterectomy, and had an [place] during a colonoscopy in the past - Social History Smoking Status: Never smoker Exposure to second hand smoke: No Drug Use: none Patient Lives Alone: Yes - Female History Hx Now: No - Nursing Vital Signs Nursing Vital Signs: Initial Vital Signs Pulse Rate 102 H 01/27/20 13:26 Respiratory Rate 38 H 03/11/20 13:26 Blood Pressure 210/116 01/27/20 13:26 O2 Sat by Pulse Oximetry 93 L 01/27/20 13:26 Pain Scale Pain Intensity 4 - Physical Exam General Appearance: no apparent distress, alert Eye Exam: PERRL/EOMI ENT Exam: normal ENT inspection, No pharyngeal erythema, No tonsillar exudate Neck Exam: normal inspection, supple, full range of motion, No meningismus Respiratory Exam: no respiratory distress, no accessory muscle use, crackles/ rales Cardiovascular/Chest Exam: normal heart sounds, regular rate/rhythm, No murmur, No edema Gastrointestinal/Abdominal Exam: soft, non tender, no distention Extremity Exam: non-tender, normal range of motion, normal inspection, normal capillary refill Neurologic Exam: alert, oriented x 3, cooperative, 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 as tested, normal mood/affect, sensation nml, No motor deficits Skin Exam: normal color, warm, dry, No rash SpO2 Interpretation: normal SpO2: 93 O2 Delivery: Room Air - Course EKG Interpreted by Me: RATE, NORMAL AXIS, NORMAL INTERVALS, Other (ST segment depression at V5 and V6.) - Radiology Exams Chest X-ray Interpretation: Teleradiologist Report (Diffuse interstitial edema with tiny bibasilar effusions no cardiomegaly osteopenia with degenerative changes observed) Ordered Tests: Active Orders 24 hr Category Date Time Status Clinical Material Handler STAT Care 01/27/20 14:10 Active EKG-ER Only STAT Care 01/27/20 14:09 Active IV Insertion STAT Care 01/27/20 14:09 Active Pulse Oximetry (ED) STAT Care 01/27/20 14:09 Active CHEST 1 VIEW (PORTABLE) Stat Exams 01/27/20 14:10 Completed BLOOD CULTURE Stat Lab 01/27/20 14:51 Received CBC W DIFF Stat Lab 01/27/20 14:40 Completed CMP Stat Lab 01/27/20 14:40 Completed Lactic Acid Stat Lab 01/27/20 14:46 Completed NT PRO BNP Stat Lab 01/27/20 14:40 Completed PROTIME WITH INR Stat Lab 01/27/20 14:40 Completed PTT Stat Lab 01/27/20 14:40 Completed TROPONIN Q3H Lab 01/27/20 14:40 Completed Medication Summary Discontinued Medications Generic Name Dose Route Start Last Admin Trade Name Freq PRN Reason Stop Dose Admin Furosemide 40 mg 01/27/20 15:34 01/27/20 16:35 Lasix 40 Mg/4 Ml IV 01/27/20 15:35 40 mg STAT ONE Administration Furosemide Confirm 01/27/20 16:33 Lasix 40 Mg/4 Ml Administered 01/27/20 16:34 Dose 40 mg .ROUTE .STK-MED ONE Morphine Sulfate 2 mg 01/27/20 14:09 01/27/20 14:25 Morphine Sulfate 2 Mg Inj IV 01/27/20 14:10 2 mg STAT ONE Administration Morphine Sulfate Confirm 01/27/20 14:22 Morphine Sulfate 2 Mg Inj Administered 01/27/20 14:23 Dose 2 mg .ROUTE .STK-MED ONE Ondansetron HCl 4 mg 01/27/20 14:09 01/27/20 14:23 Zofran 4 Mg/2 Ml Vial IV 01/27/20 14:10 4 mg STAT ONE Administration Ondansetron HCl Confirm 01/27/20 14:22 Zofran 4 Mg/2 Ml Vial Administered 01/27/20 14:23 Dose 4 mg .ROUTE .STK-MED ONE Lab/Rad Data: Laboratory Result Diagrams 01/27/20 14:40 01/27/20 14:40 Laboratory Results 01/27/20 01/27/20 01/27/20 Range/Units 16:00 14:58 14:46 WBC (4.0-10.5) K/mm3 RBC (4.1-5.4) M/mm3 Hgb (12.0-16.0) gm/dl Hct (35-47) % MCV (78-100) fl MCH (26-32) pg MCHC (32-36) g/dl RDW (11.5-14.0) % Plt Count (150-450) K/mm3 MPV (7.5-11.0) fl Gran % (36.0-66.0) % Eos # (Auto) (0-0.5) Absolute Lymphs (auto) (1.0-4.6) Absolute Monos (auto) (0.0-1.3) Lymphocytes % (24.0-44.0) % Monocytes % (0.0-12.0) % Eosinophils % (0.00-5.0) % Basophils % (0.0-0.4) % Absolute Granulocytes (1.4-6.9) Basophils # (0-0.4) PT (9.95-12.35) SECONDS INR (0.8-3.0) APTT (25.3-37.0) SECONDS Sodium (137-145) mmol/L Potassium (3.5-5.1) mmol/L Chloride (98-107) mmol/L Carbon Dioxide (22-30) mmol/L Anion Gap (5-15) MEQ/L BUN (7-17) mg/dL Creatinine (0.52-1.04) mg/dL Estimated GFR ML/MIN Glucose (74-106) mg/dL Lactic Acid 1.7 (0.4-2.0) Calcium (8.4-10.2) mg/dL Total Bilirubin (0.2-1.3) mg/dL AST (14-36) U/L ALT (0-35) U/L Alkaline Phosphatase (38-126) U/L Troponin I (0.000-0.034) ng/mL NT-Pro-B Natriuret Pep (0-1800) pg/mL Serum Total Protein (6.3-8.2) g/dL Albumin (3.5-5.0) g/dL Influenza Type A Ag NEGATIVE (NEGATIVE) Influenza Type B Ag NEGATIVE (NEGATIVE) RSV (PCR) NEGATIVE (Negative) Group A Strep Antibody NOT DETECTED (NEGATIVE) 01/27/20 01/27/20 01/27/20 Range/Units 14:40 14:40 14:40 WBC (4.0-10.5) K/mm3 RBC (4.1-5.4) M/mm3 Hgb (12.0-16.0) gm/dl Hct (35-47) % MCV (78-100) fl MCH (26-32) pg MCHC (32-36) g/dl RDW (11.5-14.0) % Plt Count (150-450) K/mm3 MPV (7.5-11.0) fl Gran % (36.0-66.0) % Eos # (Auto) (0-0.5) Absolute Lymphs (auto) (1.0-4.6) Absolute Monos (auto) (0.0-1.3) Lymphocytes % (24.0-44.0) % Monocytes % (0.0-12.0) % Eosinophils % (0.00-5.0) % Basophils % (0.0-0.4) % Absolute Granulocytes (1.4-6.9) Basophils # (0-0.4) PT 11.5 (9.95-12.35) SECONDS INR 1.02 (0.8-3.0) APTT 29.8 (25.3-37.0) SECONDS Sodium 137 (137-145) mmol/L Potassium 4.3 (3.5-5.1) mmol/L Chloride 105 (98-107) mmol/L Carbon Dioxide 25 (22-30) mmol/L Anion Gap 12.0 (5-15) MEQ/L BUN 32 H (7-17) mg/dL Creatinine 2.50 H (0.52-1.04) mg/dL Estimated GFR 19.3 ML/MIN Glucose 214 H (74-106) mg/dL Lactic Acid (0.4-2.0) Calcium 8.6 (8.4-10.2) mg/dL Total Bilirubin 0.60 (0.2-1.3) mg/dL AST 25 (14-36) U/L ALT 19 (0-35) U/L Alkaline Phosphatase 124 (38-126) U/L Troponin I 0.062 H* (0.000-0.034) ng/mL NT-Pro-B Natriuret Pep 7470 H (0-1800) pg/mL Serum Total Protein 7.0 (6.3-8.2) g/dL Albumin 3.9 (3.5-5.0) g/dL Influenza Type A Ag (NEGATIVE) Influenza Type B Ag (NEGATIVE) RSV (PCR) (Negative) Group A Strep Antibody (NEGATIVE) 01/27/20 Range/Units 14:40 WBC 8.7 (4.0-10.5) K/mm3 RBC 3.45 L (4.1-5.4) M/mm3 Hgb 11.7 L (12.0-16.0) gm/dl Hct 36.1 (35-47) % MCV 104.6 H (78-100) fl MCH 33.9 H (26-32) pg MCHC 32.4 (32-36) g/dl RDW 13.8 (11.5-14.0) % Plt Count 172 (150-450) K/mm3 MPV 10.2 (7.5-11.0) fl Gran % 85.6 H (36.0-66.0) % Eos # (Auto) 0.01 (0-0.5) Absolute Lymphs (auto) 0.61 L (1.0-4.6) Absolute Monos (auto) 0.62 (0.0-1.3) Lymphocytes % 7.0 L (24.0-44.0) % Monocytes % 7.2 (0.0-12.0) % Eosinophils % 0.1 (0.00-5.0) % Basophils % 0.1 (0.0-0.4) % Absolute Granulocytes 7.42 H (1.4-6.9) Basophils # 0.01 (0-0.4) PT (9.95-12.35) SECONDS INR (0.8-3.0) APTT (25.3-37.0) SECONDS Sodium (137-145) mmol/L Potassium (3.5-5.1) mmol/L Chloride (98-107) mmol/L Carbon Dioxide (22-30) mmol/L Anion Gap (5-15) MEQ/L BUN (7-17) mg/dL Creatinine (0.52-1.04) mg/dL Estimated GFR ML/MIN Glucose (74-106) mg/dL Lactic Acid (0.4-2.0) Calcium (8.4-10.2) mg/dL Total Bilirubin (0.2-1.3) mg/dL AST (14-36) U/L ALT (0-35) U/L Alkaline Phosphatase (38-126) U/L Troponin I (0.000-0.034) ng/mL NT-Pro-B Natriuret Pep (0-1800) pg/mL Serum Total Protein (6.3-8.2) g/dL Albumin (3.5-5.0) g/dL Influenza Type A Ag (NEGATIVE) Influenza Type B Ag (NEGATIVE) RSV (PCR) (Negative) Group A Strep Antibody (NEGATIVE) - Progress Progress: improved Progress Note: Case discussed with patient's primary care doctor. Due to end-stage renal disease and fluid overload will likely require nephrology. We will transfer for nephrology consult. 01/27/20 21:53 Counseled pt/family regarding: lab results, diagnosis, rad results - Departure Departure Disposition: Transfer, Extended Care Facility Clinical Impression: CHF (congestive heart failure), Elevated brain natriuretic peptide (BNP) level , Elevated troponin I level, ESRD (end stage renal disease) Condition: Stable Critical Care Time: No Referrals: MARLO BROOKS MD [Primary Care Provider] - Instructions: Heart Failure
[2020-01-27] MEDS ORDERED: MORPHINE SULFATE 2 MG INJ ONE (14:22)
[2020-01-27] MEDS ORDERED: Zofran 4 MG/2 ML VIAL ONE (14:22)
--- NOTE | 2020-01-27 14:42 | XRAY ---
Indication: Chest pain, fever, and weakness. Comparison: November 13, 2019. Portable chest demonstrates worsening diffuse interstitial edema with new tiny bibasilar effusions. Heart is not enlarged for AP portable technique. Bony thorax intact again with osteopenia and degenerative changes.
[2020-01-27 15:01] LABS: Absolute Neutrophil Ct (ANC) 7.42 (1.4-6.9); BASOPHIL % 0.1 % (0.0-0.4); Basophil (Absolute #) 0.01 (0-0.4); Eosinophil % 0.1 % (0.00-5.0); Eosinophil (Absolute #) 0.01 (0-0.5); Hematocrit 36.1 % (35-47); Hemoglobin 11.7 gm/dl (12.0-16.0); Lymphocyte (Absolute #) 0.61 (1.0-4.6); Mean Cell Volume 104.6 fl (78-100); Mean Corpuscular Hemoglobin 33.9 pg (26-32); Mean Corpuscular Hgb Concent. 32.4 g/dl (32-36); Mean Platelet Volume 10.2 fl (7.5-11.0); Monocyte (Absolute #) 0.62 (0.0-1.3); Monocytes % 7.2 % (0.0-12.0); Neutrophil % 85.6 % (36.0-66.0); Platelet Count 172 K/mm3 (150-450); Red Blood Count 3.45 M/mm3 (4.1-5.4); Red Cell Distribution Width 13.8 % (11.5-14.0); White Blood Count 8.7 K/mm3 (4.0-10.5)
[2020-01-27 15:09] LABS: INR 1.02 (0.8-3.0); PROTIME 11.5 SECONDS (9.95-12.35)
[2020-01-27 15:11] LABS: PTT 29.8 SECONDS (25.3-37.0)
[2020-01-27 15:20] LABS: ALBUMIN 3.9 g/dL (3.5-5.0); BILIRUBIN,TOTAL 0.6 mg/dL (0.2-1.3); Calcium 8.6 mg/dL (8.4-10.2); Creatinine 1 2.5 mg/dL (0.52-1.04); Potassium 4.3 mmol/L (3.5-5.1)
[2020-01-27] MEDS ORDERED: Lasix 40 MG/4 ML IV ONE (15:34)
[2020-01-27 15:41] VITALS: BP 178/62
[2020-01-27 15:49] VITALS: O2SAT 93
[2020-01-27 16:20] LABS: INFLUENZA A NEGATIVE (NEGATIVE); INFLUENZA B NEGATIVE (NEGATIVE); RESPIRATORY SYNCTIAL VIRUS NEGATIVE (Negative)
[2020-01-27] MEDS ORDERED: Lasix 40 MG/4 ML ONE (16:33)
[2020-01-27 16:58] VITALS: PULSE 94
== END 2020-01-27 17:36 | disposition short-term general hospital (02) ==
LOC: ED 13:14
DX: I50.9 Heart failure, unspecified (principal); R79.89 Other specified abnormal findings of blood chemistry; N18.6 End stage renal disease; R07.89 Other chest pain; I10 Essential (primary) hypertension; R09.89 Other specified symptoms and signs involving the circulatory and respiratory systems; Z99.2 Dependence on renal dialysis; R55 Syncope and collapse; R10.9 Unspecified abdominal pain; R53.1 Weakness; R41.0 Disorientation, unspecified; R53.83 Other fatigue; R50.9 Fever, unspecified
CPT/HCPCS: 36000; 36415; 71045; 80053; 83605; 83880; 84484; 85025; 85610; 85730; 87040; 87631; 87651; 93005; 93041; 94760; 96374; 96375; 99284; J1940; J2270; J2405

== ENCOUNTER 2020-08-21 10:11 | Observation (INO) | payer MEDICARE, BC ==
[2020-08-21] MEDS ORDERED: MORPHINE SULFATE 4 MG INJ IV ONE (10:53)
[2020-08-21] MEDS ORDERED: Zofran 4 MG/2 ML VIAL IV ONE (10:53)
[2020-08-21 11:12] LABS: Absolute Neutrophil Ct (ANC) 4.89 (1.4-6.9); BASOPHIL % 0.3 % (0.0-0.4); Basophil (Absolute #) 0.02 (0-0.4); Eosinophil % 0.5 % (0.00-5.0); Eosinophil (Absolute #) 0.03 (0-0.5); Hematocrit 37.7 % (35-47); Hemoglobin 12.4 gm/dl (12.0-16.0); Lymphocytes % 10.8 % (24.0-44.0); Mean Cell Volume 106.2 fl (78-100); Mean Corpuscular Hemoglobin 34.9 pg (26-32); Mean Corpuscular Hgb Concent. 32.9 g/dl (32-36); Mean Platelet Volume 10.8 fl (7.5-11.0); Monocyte (Absolute #) 0.86 (0.0-1.3); Monocytes % 13.2 % (0.0-12.0); Neutrophil % 75.2 % (36.0-66.0); Platelet Count 114 K/mm3 (150-450); Red Blood Count 3.55 M/mm3 (4.1-5.4); Red Cell Distribution Width 13.5 % (11.5-14.0); White Blood Count 6.5 K/mm3 (4.0-10.5)
[2020-08-21] MEDS ORDERED: Zofran 4 MG/2 ML VIAL ONE (11:15)
[2020-08-21] MEDS ORDERED: MORPHINE SULFATE 4 MG INJ ONE (11:15)
[2020-08-21 11:48] LABS: ALBUMIN 3.8 g/dL (3.5-5.0); ANION GAP 14.4 MEQ/L (5-15); BILIRUBIN,TOTAL 0.4 mg/dL (0.2-1.3); Calcium 8.1 mg/dL (8.4-10.2); Creatinine 1 4.12 mg/dL (0.52-1.04); EST GLOMERULAR FILTRATION RATE 10.8 ML/MIN; Total Protein 6.7 g/dL (6.3-8.2)
[2020-08-21] MEDS ORDERED: APRESOLINE 20 MG/ML INJ IV ONE ×2 (13:08→15:07)
[2020-08-21] MEDS ORDERED: APRESOLINE 20 MG/ML INJ ONE ×2 (13:22→15:11)
--- NOTE | 2020-08-21 14:09 | ERPHSYRPT ---
- History of Present Illness Time Seen by Provider: 08/21/20 10:19 Source: patient Patient Subjective Stated Complaint: Pt states "I have had this for a month and I have been in and out of [facility], to [facility], here, and nothing is helping. The hospital called in two prescriptions and the pharmacy called me and said something about insurance and I have not picked it up yet. My lower back is killing me and into my lower abdomen pelvis area." Triage Nursing Assessment: Pt presnted alert and oriented x 3, skin pwd Pt ambulates with a shakey hunched over gait. Pt able to speak in clear full sentenecs pt in no apparent respiratory distress. Physician History: 89 years old female with multiple medical problems including hypertension, hyp erlipidemia, diabetes mellitus, end-stage renal disease on dialysis 3 times a week, back pain/pelvic pain for 1 month for which she has been evaluated at multiple ER and outpatient with negative work-up presented again with increasing pain in the low back with radiation to bilateral lower extremities. Denies any loss of bowel or bladder control. Denies any numbness tingling or focal weakness in lower extremities. Pain is similar to previous episodes but it hurts to ambulate and no significant relieving factors. Patient reports she cannot take it anymore and needs some help. She was seen at [facility] ER [address] with negative [address]. Timing/Duration: week(s) (4), sudden, worse Method of Injury: unknown Quality: sharp Back Pain Location: coccyx, paraspinous muscles Back Pain Radiation: buttocks, upper legs Severity of Pain-Max: severe Severity of Pain-Current: severe Modifying Factors: Improves With: pain medication, rest. Worsens With: movement Associated Symptoms: lower back pain, No numbness in legs/feet, No weakness, No sensory/motor loss, No tingling in legs/feet Previous symptoms: no prior history Allergies/Adverse Reactions: cephalexin Adverse Reaction (Verified 08/07/18 11:32) dextromethorphan [From Mucinex DM] Adverse Reaction (Verified 08/07/18 11:32) guaifenesin [From Mucinex DM] Adverse Reaction (Verified 08/07/18 11:32) Home Medications: Aspirin 81 mg PO DAILY 08/20/14 [History] Isosorbide Mononitrate [Isosorbide Mononitrate ER] 60 mg PO DAILY 08/20/14 [History] Allopurinol 100 mg [Zyloprim 100 mg] 100 mg PO DAILY 07/27/18 [History] Amlodipine Besylate 5 mg [Norvasc 5 mg] 10 mg PO EVENING MEAL 11/13/19 [History] Atorvastatin Calcium [Lipitor] 20 mg PO HS 11/13/19 [History] Furosemide 20 mg [Lasix 20 mg] 20 mg PO DAILY 11/13/19 [History] HydrALAzine HCL 25 MG TAB [Apresoline 25 MG TABLET] 50 mg PO DAILY 11/13/19 [History] Glimepiride 1 mg PO DAILY 11/14/19 [History] carvediloL [Carvedilol] 25 mg PO BID 11/14/19 [History] Hx Tetanus, Diphtheria Vaccination/Date Given: No Hx Influenza Vaccination/Date Given: Yes Hx Pneumococcal Vaccination/Date Given: No Immunizations Up to Date: Yes Travel Risk - International Travel Have you traveled outside of the country in past 3 weeks: No - Coronavirus Screening Are you exhibiting any of the following symptoms?: No Close contact with a COVID-19 positive Pt in past 14-21 Days: No - Review of Systems Constitutional: No Symptoms Eyes: No Symptoms Ears, Nose, & Throat: No Symptoms Respiratory: No Symptoms Cardiac: No Symptoms Abdominal/Gastrointestinal: No Symptoms Genitourinary Symptoms: No Symptoms Musculoskeletal: Back Pain Skin: No Symptoms Neurological: No Symptoms Psychological: Anxiety Endocrine: No Symptoms Hematologic/Lymphatic: No Symptoms Immunological/Allergic: No Symptoms - Past Medical History Pertinent Past Medical History: Yes Neurological History: No Pertinent History ENT History: No Pertinent History Cardiac History: Hypertension, Myocardial Infarction ([place]) Respiratory History: No Pertinent History Endocrine Medical History: Adrenal Insufficiency, Diabetes Type II Musculoskeletal History: Osteoarthritis GI Medical History: Colitis, GERD, Other History: Renal Disease Psycho-Social History: No Pertinent History Female Reproductive Disorders: No Pertinent History Other Medical History: Pt has been going to kidney doctors, last check up the doctor stated her kidneys were working fine. skin cancer unknown which one - Past Surgical History Past Surgical History: Yes Neuro Surgical History: No Pertinent History Cardiac: No Pertinent History Respiratory: No Pertinent History Gastrointestinal: Cholecystectomy Genitourinary: No Pertinent History Musculoskeletal: No Pertinent History Female Surgical History: Hysterectomy Other Surgical History: pt states she had skin cancer removed off her face, hysterectomy, and had an [place] during a colonoscopy in the past - Social History Smoking Status: Never smoker Exposure to second hand smoke: Yes Drug Use: none Patient Lives Alone: Yes - Nursing Vital Signs Nursing Vital Signs: Initial Vital Signs Temperature 99.4 F 08/21/20 10:23 Pulse Rate 94 H 08/21/20 10:23 Respiratory Rate 22 08/21/20 10:23 Blood Pressure 229/98 08/21/20 10:23 O2 Sat by Pulse Oximetry 95 08/21/20 10:23 Pain Scale Pain Intensity [Posterior Back 8 ] Pain Intensity 8 - Physical Exam General Appearance: mild distress, alert, anxiety Eye Exam: eyes nml inspection Ears, Nose, Throat Exam: normal ENT inspection, TMs normal, pharynx normal Neck Exam: normal inspection, supple, full range of motion Respiratory Exam: normal breath sounds, lungs clear Cardiovascular Exam: regular rate/rhythm, normal heart sounds Gastrointestinal Exam: soft, normal bowel sounds, tenderness (Lower abdomens/left lower quadrant) Pelvic Exam: not done Back Exam: normal inspection, decreased range of motion, muscle spasm, point tenderness (Bilateral sacroiliac area), No normal range of motion, No CVA tenderness, No vertebral tenderness Extremity Exam: normal inspection, normal range of motion, No calf tenderness Neurologic Exam: alert, oriented x 3, cooperative, 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 Skin Exam: normal color SpO2 Interpretation: normal SpO2: 90 O2 Delivery: Room Air - Course Nursing assessment & vital signs reviewed: Yes Ordered Tests: Active Orders 24 hr Category Date Time Status Bedrest ROUTINE Activity 08/21/20 16:19 Active Bedrest with BRP/BSC ROUTINE Activity 08/21/20 16:19 Active Up With Assistance ROUTINE Activity 08/21/20 16:19 Active Code Status Order ROUTINE Care 08/21/20 16:19 Active Fall Protocol ROUTINE Care 08/21/20 16:19 Active IV Care Q6H Care 08/21/20 16:[address] in Observation ROUTINE Care 08/21/20 16:19 Active Que Torres, Claudine ROUTINE Care 08/21/20 16:19 Active Consistent Carbohydrate Diet 1800 Calorie Diet 08/21/20 Dinner Active CBC W DIFF AM.LAB Lab 08/22/20 04:00 Ordered CBC W DIFF Stat Lab 08/21/20 11:10 Completed CMP AM.LAB Lab 08/22/20 04:00 Ordered CMP Stat Lab 08/21/20 11:10 Completed LIPASE Stat Lab 08/21/20 11:10 Completed UA W/RFX UR CULTURE Stat Lab 08/21/20 10:53 Uncollected Transfer Order Routine Transfer 08/21/20 Completed Medication Summary Generic Name Dose Route Start Last Admin Trade Name Danielle PRN Reason Stop Dose Admin Acetaminophen 650 mg 08/21/20 16:19 Tylenol 325 Mg PO 09/20/20 16:18 Q4H PRN PRN PAIN AND/OR FEVER Famotidine 20 mg 08/21/20 22:00 Pepcid 20 Mg Vial IV 09/20/20 21:59 Q12HT BRYCE Hydralazine HCl 10 mg 08/21/20 16:19 Apresoline 20 Mg/Ml Inj IV 09/20/20 16:18 Q4H PRN PRN HYPERTENSION Insulin Human Lispro 0 unit 08/21/20 16:19 Humalog SQ 09/20/20 16:18 UD PRN HYPERGLYCEMIA Morphine Sulfate 2 mg 08/21/20 16:19 Morphine Sulfate 2 Mg Inj IV 08/26/20 16:18 Q4H PRN PRN PAIN Ondansetron HCl 4 mg 08/21/20 16:19 Zofran 4 Mg/2 Ml Vial IV 09/20/20 16:18 Q6H PRN PRN NAUSEA/VOMITING Discontinued Medications Generic Name Dose Route Start Last Admin Trade Name Danielle PRN Reason Stop Dose Admin Hydralazine HCl 10 mg 08/21/20 13:08 08/21/20 13:24 Apresoline 20 Mg/Ml Inj IV 08/21/20 13:09 10 mg STAT ONE Administration Hydralazine HCl Confirm 08/21/20 13:22 Apresoline 20 Mg/Ml Inj Administered 08/21/20 13:23 Dose 20 mg .ROUTE .STK-MED ONE Hydralazine HCl 10 mg 08/21/20 15:07 08/21/20 15:13 Apresoline 20 Mg/Ml Inj IV 08/21/20 15:08 10 mg STAT ONE Administration Hydralazine HCl Confirm 08/21/20 15:11 Apresoline 20 Mg/Ml Inj Administered 08/21/20 15:12 Dose 20 mg .ROUTE .STK-MED ONE Morphine Sulfate 4 mg 08/21/20 10:53 08/21/20 11:16 Morphine Sulfate 4 Mg Inj IV 08/21/20 10:54 4 mg STAT ONE Administration Morphine Sulfate Confirm 08/21/20 11:15 Morphine Sulfate 4 Mg Inj Administered 08/21/20 11:16 Dose 4 mg .ROUTE .STK-MED ONE Morphine Sulfate 2 mg 08/21/20 15:09 08/21/20 15:13 Morphine Sulfate 2 Mg Inj IV 08/21/20 15:10 2 mg STAT ONE Administration Morphine Sulfate Confirm 08/21/20 15:11 Morphine Sulfate 2 Mg Inj Administered 08/21/20 15:12 Dose 2 mg .ROUTE .STK-MED ONE Ondansetron HCl 4 mg 08/21/20 10:53 08/21/20 11:16 Zofran 4 Mg/2 Ml Vial IV 08/21/20 10:54 4 mg STAT ONE Administration Ondansetron HCl Confirm 08/21/20 11:15 Zofran 4 Mg/2 Ml Vial Administered 08/21/20 11:16 Dose 4 mg .ROUTE .STK-MED ONE Lab/Rad Data: Laboratory Result Diagrams 08/21/20 11:10 08/21/20 11:10 Laboratory Results 08/21/20 08/21/20 Range/Units 11:10 11:10 WBC 6.5 (4.0-10.5) K/mm3 RBC 3.55 L (4.1-5.4) M/mm3 Hgb 12.4 (12.0-16.0) gm/dl Hct 37.7 (35-47) % MCV 106.2 H (78-100) fl MCH 34.9 H (26-32) pg MCHC 32.9 (32-36) g/dl RDW 13.5 (11.5-14.0) % Plt Count 114 L (150-450) K/mm3 MPV 10.8 (7.5-11.0) fl Gran % 75.2 H (36.0-66.0) % Eos # (Auto) 0.03 (0-0.5) Absolute Lymphs (auto) 0.70 L (1.0-4.6) Absolute Monos (auto) 0.86 (0.0-1.3) Lymphocytes % 10.8 L (24.0-44.0) % Monocytes % 13.2 H (0.0-12.0) % Eosinophils % 0.5 (0.00-5.0) % Basophils % 0.3 (0.0-0.4) % Absolute Granulocytes 4.89 (1.4-6.9) Basophils # 0.02 (0-0.4) Sodium 137 (137-145) mmol/L Potassium 4.0 (3.5-5.1) mmol/L Chloride 102 (98-107) mmol/L Carbon Dioxide 24 (22-30) mmol/L Anion Gap 14.4 (5-15) MEQ/L BUN 53 H (7-17) mg/dL Creatinine 4.12 H (0.52-1.04) mg/dL Estimated GFR 10.8 ML/MIN Glucose 199 H (74-106) mg/dL Calcium 8.1 L (8.4-10.2) mg/dL Total Bilirubin 0.40 (0.2-1.3) mg/dL AST 32 (14-36) U/L ALT 23 (0-35) U/L Alkaline Phosphatase 95 (38-126) U/L Serum Total Protein 6.7 (6.3-8.2) g/dL Albumin 3.8 (3.5-5.0) g/dL Lipase 89 (23-300) U/L - Progress Progress: pain not gone completely, re-examined Progress Note: 89 years old is evaluated for worsening low back pain. She has tenderness in sacroiliac area and left lower quadrant. She is given morphine x2 and feeling some improvement but still pain is not gone. Patient has a stable blood work. I have offered her CT but she refused stating "I have multiple CAT scans done and I do not want to go through it again and pain is same as it was before". She has negative neuro exam in lower extremities. On repeated evaluation she still have some pain. Her blood pressure was in 200s, given hydralazine 10 mg x 2 and is better now. Denies any chest pain palpitations or shortness of breath no abdominal pain otherwise what she has in the pelvis. Denies any headache blurry vision. Discussed with Dr. Fernandez and patient is being admitted for observation for pain control and blood pressure control. Will see patient in: hospital (observation) Counseled pt/family regarding: lab results, diagnosis - Departure Departure Disposition: Observation Clinical Impression: Hypertensive urgency, ESRD (end stage renal disease) Low back pain Qualifiers: Chronicity: chronic Back pain laterality: bilateral Sciatica presence: unspecified whether sciatica present Qualified Code(s): M54.5 - Low back pain Condition: Stable Critical Care Time: Yes Critical Care Time(excluding separately billable procedures): Critical 30-74 mins
[2020-08-21] MEDS ORDERED: MORPHINE SULFATE 2 MG INJ IV ONE (15:09)
[2020-08-21] MEDS ORDERED: MORPHINE SULFATE 2 MG INJ ONE (15:11)
[2020-08-21] MEDS ORDERED: TYLENOL 325 MG PO PRN (16:19)
[2020-08-21] MEDS ORDERED: APRESOLINE 20 MG/ML INJ IV PRN (16:19)
[2020-08-21] MEDS ORDERED: HUMALOG SQ PRN (16:19)
[2020-08-21] MEDS: Zofran 4 MG/2 ML VIAL IV PRN (16:23)
[2020-08-21] MEDS: MORPHINE SULFATE 2 MG INJ IV PRN ×2 (16:23→21:30)
[2020-08-21 17:20] LABS: Appearance CLEAR (CLEAR); Bilirubin NEGATIVE (NEGATIVE); Blood SMALL Ery/ul (0-5); Epithelial Cells RARE /HPF (FEW); Glucose 50 mg/dL (NEGATIVE); Hyaline Casts 0-2 /LPF (0-2); Ketones NEGATIVE (NEGATIVE); Leukocyte Esterase NEGATIVE (NEGATIVE); Nitrite NEGATIVE (NEGATIVE); Protein,Urine Dip >=500 (Negative); RBC 0-2 /HPF (0-2); Specific Gravity 1.013 (1.005-1.025); Urobilinogen NEGATIVE mg/dL (0-1); WBC 0-2 /HPF (0-5)
[2020-08-21] MEDS: ZOCOR 20MG PO SCH (19:30)
[2020-08-21] MEDS: Apresoline 25 MG TABLET PO SCH (19:30)
[2020-08-21] MEDS: COREG 12.5 MG PO SCH (19:30)
[2020-08-21] MEDS: Pepcid 20 MG VIAL IV SCH (19:31)
[2020-08-22] MEDS ORDERED: MORPHINE SULFATE 2 MG INJ ONE (04:38)
[2020-08-22] MEDS: MORPHINE SULFATE 2 MG INJ IV PRN ×3 (04:41→13:25)
[2020-08-22 05:25] LABS: Absolute Neutrophil Ct (ANC) 2.86 (1.4-6.9); BASOPHIL % 0.2 % (0.0-0.4); Basophil (Absolute #) 0.01 (0-0.4); Eosinophil % 0.2 % (0.00-5.0); Eosinophil (Absolute #) 0.01 (0-0.5); Hematocrit 36.4 % (35-47); Hemoglobin 11.3 gm/dl (12.0-16.0); Lymphocyte (Absolute #) 1.24 (1.0-4.6); Lymphocytes % 25.2 % (24.0-44.0); Mean Cell Volume 109.3 fl (78-100); Mean Corpuscular Hemoglobin 33.9 pg (26-32); Mean Platelet Volume 10.9 fl (7.5-11.0); Monocytes % 16.3 % (0.0-12.0); Neutrophil % 58.1 % (36.0-66.0); Platelet Count 108 K/mm3 (150-450); Red Blood Count 3.33 M/mm3 (4.1-5.4); Red Cell Distribution Width 13.7 % (11.5-14.0); White Blood Count 4.9 K/mm3 (4.0-10.5)
[2020-08-22 05:40] LABS: ALBUMIN 3.4 g/dL (3.5-5.0); ANION GAP 11.7 MEQ/L (5-15); BILIRUBIN,TOTAL 0.4 mg/dL (0.2-1.3); Calcium 7.9 mg/dL (8.4-10.2); Creatinine 1 4.44 mg/dL (0.52-1.04); EST GLOMERULAR FILTRATION RATE 9.9 ML/MIN; Potassium 4.3 mmol/L (3.5-5.1); Total Protein 6.1 g/dL (6.3-8.2)
[2020-08-22] MEDS: Zofran 4 MG/2 ML VIAL IV PRN ×2 (08:19→15:00)
[2020-08-22] MEDS: Pepcid 20 MG VIAL IV SCH ×2 (09:03→21:39)
[2020-08-22] MEDS: LASIX 20 MG PO SCH ×2 (09:06→11:30)
[2020-08-22] MEDS: ZYLOPRIM 100 MG PO SCH ×2 (09:06→11:30)
[2020-08-22] MEDS: NORVASC 5 MG PO SCH (09:06)
[2020-08-22] MEDS: COREG 12.5 MG PO SCH ×3 (09:06→21:47)
[2020-08-22] MEDS: ECOTRIN 81 MG PO SCH ×2 (09:07→11:30)
[2020-08-22] MEDS: Imdur 60MG PO SCH (09:07)
[2020-08-22] MEDS: Apresoline 25 MG TABLET PO SCH ×4 (09:07→21:47)
[2020-08-22] MEDS: Amaryl 2 MG PO SCH ×2 (09:08→11:29)
[2020-08-22] MEDS ORDERED: NON-FORMULARY ITEM (Glimepiride [Glimepiride] 1 MG) PO SCH (10:00)
[2020-08-22] MEDS ORDERED: NON-FORMULARY ITEM (Amlodipine Besylate [Amlodipine Besylate] 10 MG) PO SCH (10:00)
[2020-08-22] MEDS ORDERED: NON-FORMULARY ITEM (Aspirin [Aspirin] 81 MG) PO SCH (10:00)
[2020-08-22] MEDS: Lidoderm Patch 5% TOP SCH (10:05)
[2020-08-22 10:44] LABS: AMYLASE < 30 U/L (30-110); LIPASE 40 U/L (23-300)
[2020-08-22] MEDS: Sodium Chloride 0.9% 1000 ML 1,000 ML IV SCH (13:26)
[2020-08-22] MEDS ORDERED: LOPRESSOR 5 MG/5 ML INJECTION IV SCH (18:00)
--- NOTE | 2020-08-22 20:35 | PCM.HP ---
History of Present Illness - Chief Complaint Chief Complaint: htn, back pain History of Present Illness: 89 years old female with multiple medical problems including hypertension, hyperlipidemia, diabetes mellitus, end-stage renal disease on dialysis 3 times a week, back pain/pelvic pain for 1 month for which she has been evaluated at multiple ER and outpatient with negative work-up presented again with increasing pain in the low back with radiation to bilateral lower extremities. Denies any loss of bowel or bladder control. Denies any numbness tingling or focal weakness in lower extremities. Pain is similar to previous episodes but it hurts to ambulate and no significant relieving factors. Patient reports she cannot take it anymore and needs some help. She was seen at [facility] 3 days ago with negative CT. Timing/Duration: week(s) (4), sudden, worse Method of Injury: unknown Quality: sharp Back Pain Location: coccyx, paraspinous muscles Back Pain Radiation: buttocks, upper legs Severity of Pain-Max: severe Severity of Pain-Current: severe Modifying Factors: Improves With: pain medication, rest. Worsens With: movement Associated Symptoms: lower back pain, No numbness in legs/feet, No weakness, No sensory/motor loss, No tingling in legs/feet Previous symptoms: no prior history - Review of Systems Constitutional: No Fever, No Chills Eyes: No Symptoms Ears, Nose, & Throat: No Symptoms Respiratory: No Cough, No Short Of Breath Cardiac: No Chest Pain, No Edema, No Syncope Abdominal/Gastrointestinal: No Abdominal Pain, No Nausea, No Vomiting, No Diarrhea Genitourinary Symptoms: No Dysuria Musculoskeletal: No Back Pain, No Neck Pain Skin: No Rash Neurological: No Dizziness, No Focal Weakness, No Sensory Changes Psychological: No Symptoms Endocrine: No Symptoms Hematologic/Lymphatic: No Symptoms Immunological/Allergic: No Symptoms Medications & Allergies Home Medications: Home Medication List Aspirin 81 mg PO DAILY 08/20/14 [History Confirmed 08/21/20] Isosorbide Mononitrate [Isosorbide Mononitrate ER] 60 mg PO DAILY 08/20/14 [History Confirmed 08/21/20] Allopurinol 100 mg [Zyloprim 100 mg] 100 mg PO DAILY 07/27/18 [History Confirmed 08/21/20] Atorvastatin Calcium [Lipitor] 20 mg PO HS 11/13/19 [History Confirmed 08/21/20] Furosemide 20 mg [Lasix 20 mg] 20 mg PO DAILY 11/13/19 [History Confirmed 08/21/20] Glimepiride 1 mg PO DAILY 11/14/19 [History Confirmed 08/21/20] carvediloL [Carvedilol] 25 mg PO BID 11/14/19 [History Confirmed 08/21/20] Amlodipine Besylate 10 mg PO DAILY 08/21/20 [History Confirmed 08/21/20] HydrALAzine HCL 25 MG TAB [Apresoline 25 MG TABLET] 50 mg PO TID 08/21/20 [History Confirmed 08/21/20] Acetaminophen 325 mg [Tylenol 325 mg] 650 mg PO Q4H PRN PRN tablet 08/22/20 [Rx] Allergies/Adverse Reactions: Allergies Allergy/AdvReac Type Severity Reaction Status Date / Time cephalexin AdvReac Verified 08/07/18 11:32 dextromethorphan AdvReac Verified 08/07/18 11:32 [From Mucinex DM] [email or web address] [From Mucinex DM] AdvReac Verified 08/07/18 11:32 - Past Medical History Past Medical History: Yes Neurological History: No Pertinent History ENT History: No Pertinent History Cardiac History: Hypertension, Myocardial Infarction (ND) Respiratory History: No Pertinent History Endocrine Medical History: Adrenal Insufficiency, Diabetes Type II Musculoskelatal History: Osteoarthritis GI Medical History: Colitis, GERD, Other History: Renal Disease Pyscho-Social History: No Pertinent History Reproductive Disorders: No Pertinent History Comment: Pt has been going to kidney doctors, last check up the doctor stated her kidneys were working fine. skin cancer unknown which one - Female History Are you now?: No - Past Surgical History Past Surgical History: Yes Neuro Surgical History: No Pertinent History Cardiac History: No Pertinent History Respiratory Surgery: No Pertinent History GI Surgical History: Cholecystectomy Genitourinary Surgical Hx: No Pertinent History Musculskeletal Surgical Hx: No Pertinent History Female Surgical History: Hysterectomy Other Surgical History: pt states she had skin cancer removed off her face, hysterectomy, and had an ND during a colonoscopy in the past - Social History Smoking Status: Never smoker Exposure to second hand smoke: Yes Alcohol: None Drug Use: none - Physical Exam Vital Signs: Vital Signs - 24 hr Temp Pulse Resp BP Pulse Ox 08/22/20 20:24 95 08/22/20 19:16 98 F 64 18 143/63 91 L 08/22/20 16:31 97.9 F 75 16 203/80 96 08/22/20 13:11 98.3 F 62 20 98/46 98 08/22/20 07:43 98.2 F 62 16 163/70 92 L 08/22/20 04:00 98.4 F 62 18 165/72 93 L 08/21/20 23:59 100.9 F 72 18 165/65 93 L 08/21/20 21:42 79 155/63 General Appearance: no apparent distress, alert Neurologic Exam: alert, oriented x 3, cooperative, normal mood/affect, nml cerebellar function, nml station & gait, sensation nml, No motor deficits Eye Exam: PERRL/EOMI, eyes nml inspection Ears, Nose, Throat Exam: normal ENT inspection, TMs normal, pharynx normal, moist mucous membranes Neck Exam: normal inspection, non-tender, supple, full range of motion Respiratory Exam: normal breath sounds, lungs clear, No respiratory distress Cardiovascular Exam: regular rate/rhythm, normal heart sounds, normal peripheral pulses Gastrointestinal/Abdomen Exam: soft, normal bowel sounds, No tenderness, No mass Back Exam: normal inspection, normal range of motion, No CVA tenderness, No vertebral tenderness Extremity Exam: normal inspection, normal range of motion, pelvis stable Skin Exam: normal color, warm, dry, No rash Lymphatic Exam: No adenopathy Results - Labs Lab/Micro Results: Lab Results-Last 24 Hours 08/22/20 08/22/20 08/22/20 Range/Units 04:25 04:25 05:00 WBC 4.9 (4.0-10.5) K/mm3 RBC 3.33 L (4.1-5.4) M/mm3 Hgb 11.3 L (12.0-16.0) gm/dl Hct 36.4 (35-47) % MCV 109.3 H (78-100) fl MCH 33.9 H (26-32) pg MCHC 31.0 L (32-36) g/dl RDW 13.7 (11.5-14.0) % Plt Count 108 L (150-450) K/mm3 MPV 10.9 (7.5-11.0) fl Gran % 58.1 (36.0-66.0) % Eos # (Auto) 0.01 (0-0.5) Absolute Lymphs (auto) 1.24 (1.0-4.6) Absolute Monos (auto) 0.80 (0.0-1.3) Lymphocytes % 25.2 (24.0-44.0) % Monocytes % 16.3 H (0.0-12.0) % Eosinophils % 0.2 (0.00-5.0) % Basophils % 0.2 (0.0-0.4) % Absolute Granulocytes 2.86 (1.4-6.9) Basophils # 0.01 (0-0.4) Sodium 134 L (137-145) mmol/L Potassium 4.3 (3.5-5.1) mmol/L Chloride 102 (98-107) mmol/L Carbon Dioxide 25 (22-30) mmol/L Anion Gap 11.7 (5-15) MEQ/L BUN 61 H (7-17) mg/dL Creatinine 4.44 H (0.52-1.04) mg/dL Estimated GFR 9.9 ML/MIN Glucose 126 H (74-106) mg/dL POC Glucometer (74 to 106) mg/dL Hemoglobin A1c 6.38 H (4.5-6.0) % Calcium 7.9 L (8.4-10.2) mg/dL Total Bilirubin 0.40 (0.2-1.3) mg/dL AST 37 H (14-36) U/L ALT 27 (0-35) U/L Alkaline Phosphatase 80 (38-126) U/L Serum Total Protein 6.1 L (6.3-8.2) g/dL Albumin 3.4 L (3.5-5.0) g/dL Amylase (30-110) U/L Lipase (23-300) U/L 08/22/20 08/22/20 08/22/20 Range/Units 05:00 07:22 11:25 WBC (4.0-10.5) K/mm3 RBC (4.1-5.4) M/mm3 Hgb (12.0-16.0) gm/dl Hct (35-47) % MCV (78-100) fl MCH (26-32) pg MCHC (32-36) g/dl RDW (11.5-14.0) % Plt Count (150-450) K/mm3 MPV (7.5-11.0) fl Gran % (36.0-66.0) % Eos # (Auto) (0-0.5) Absolute Lymphs (auto) (1.0-4.6) Absolute Monos (auto) (0.0-1.3) Lymphocytes % (24.0-44.0) % Monocytes % (0.0-12.0) % Eosinophils % (0.00-5.0) % Basophils % (0.0-0.4) % Absolute Granulocytes (1.4-6.9) Basophils # (0-0.4) Sodium (137-145) mmol/L Potassium (3.5-5.1) mmol/L Chloride (98-107) mmol/L Carbon Dioxide (22-30) mmol/L Anion Gap (5-15) MEQ/L BUN (7-17) mg/dL Creatinine (0.52-1.04) mg/dL Estimated GFR ML/MIN Glucose (74-106) mg/dL POC Glucometer 123 H 152 H (74 to 106) mg/dL Hemoglobin A1c (4.5-6.0) % Calcium (8.4-10.2) mg/dL Total Bilirubin (0.2-1.3) mg/dL AST (14-36) U/L ALT (0-35) U/L Alkaline Phosphatase (38-126) U/L Serum Total Protein (6.3-8.2) g/dL Albumin (3.5-5.0) g/dL Amylase < 30 L (30-110) U/L Lipase 40 (23-300) U/L // Range/Units 16:21 WBC (4.0-10.5) K/mm3 RBC (4.1-5.4) M/mm3 Hgb (12.0-16.0) gm/dl Hct (35-47) % MCV (78-100) fl MCH (26-32) pg MCHC (32-36) g/dl RDW (11.5-14.0) % Plt Count (150-450) K/mm3 MPV (7.5-11.0) fl Gran % (36.0-66.0) % Eos # (Auto) (0-0.5) Absolute Lymphs (auto) (1.0-4.6) Absolute Monos (auto) (0.0-1.3) Lymphocytes % (24.0-44.0) % Monocytes % (0.0-12.0) % Eosinophils % (0.00-5.0) % Basophils % (0.0-0.4) % Absolute Granulocytes (1.4-6.9) Basophils # (0-0.4) Sodium (137-145) mmol/L Potassium (3.5-5.1) mmol/L Chloride (98-107) mmol/L Carbon Dioxide (22-30) mmol/L Anion Gap (5-15) MEQ/L BUN (7-17) mg/dL Creatinine (0.52-1.04) mg/dL Estimated GFR ML/MIN Glucose (74-106) mg/dL POC Glucometer 158 H (74 to 106) mg/dL Hemoglobin A1c (4.5-6.0) % Calcium (8.4-10.2) mg/dL Total Bilirubin (0.2-1.3) mg/dL AST (14-36) U/L ALT (0-35) U/L Alkaline Phosphatase (38-126) U/L Serum Total Protein (6.3-8.2) g/dL Albumin (3.5-5.0) g/dL Amylase (30-110) U/L Lipase (23-300) U/L Microbiology 08/21/20 17:02 Urine Culture - Preliminary Urine, Void NO GROWTH TO DATE Accuchecks Date 08/22/20 Date 08/22/20 Date 08/22/20 Date 08/22/20 Date 08/22/20 Time 16:32 Time 16:25 Time 11:40 Time 07:44 Time 07:26 - Other Procedures and Tests Respiratory Therapy 08/22/20 20:24 Oxygen NASAL CANNULA 2 lpm Assessment/Plan (1) Low back pain Current Visit: Yes Status: Acute Qualifiers: Chronicity: chronic Back pain laterality: bilateral Sciatica presence: unspecified whether sciatica present Qualified Code(s): M54.5 - Low back pain; G89.29 - Other chronic pain Code(s): M54.5 - LOW BACK PAIN (2) ESRD (end stage renal disease) Current Visit: Yes Status: Acute Code(s): N18.6 - END STAGE RENAL DISEASE (3) Hypertensive urgency Current Visit: Yes Status: Acute Code(s): I16.0 - HYPERTENSIVE URGENCY (4) Chronic renal insufficiency Current Visit: No Status: Chronic Onset Date: ~08/03/18 Code(s): N18.9 - CHRONIC KIDNEY DISEASE, UNSPECIFIED (5) Diabetes Current Visit: No Status: Chronic Qualifiers: Code(s): E11.9 - TYPE 2 DIABETES MELLITUS WITHOUT COMPLICATIONS (6) Hypertension Current Visit: No Status: Chronic Onset Date: ~08/03/18 Qualifiers: Code(s): I10 - ESSENTIAL (PRIMARY) HYPERTENSION (7) Stage 5 chronic kidney disease Current Visit: No Status: Chronic Code(s): N18.5 - CHRONIC KIDNEY DISEASE, STAGE 5
[2020-08-22] MEDS: LOPRESSOR 5 MG/5 ML INJECTION IV SCH (20:50)
[2020-08-22] MEDS ORDERED: Dulcolax 10 MG SUPP PR PRN (21:12)
[2020-08-22] MEDS: ZOCOR 20MG PO SCH ×2 (21:39→21:47)
[2020-08-23] MEDS: Lidoderm Patch 5% TOP SCH (09:08)
[2020-08-23] MEDS: NORVASC 5 MG PO SCH (09:09)
[2020-08-23] MEDS: Apresoline 25 MG TABLET PO SCH ×2 (09:10→15:15)
[2020-08-23] MEDS: Imdur 60MG PO SCH (09:10)
[2020-08-23] MEDS: Pepcid 20 MG VIAL IV SCH (09:10)
[2020-08-23] MEDS: COREG 12.5 MG PO SCH (09:10)
[2020-08-23] MEDS: ZYLOPRIM 100 MG PO SCH (09:10)
[2020-08-23] MEDS: ECOTRIN 81 MG PO SCH (09:10)
[2020-08-23] MEDS: LASIX 20 MG PO SCH (09:10)
[2020-08-23] MEDS: Amaryl 2 MG PO SCH (09:10)
[2020-08-23] MEDS: LOPRESSOR 5 MG/5 ML INJECTION IV SCH (09:14)
[2020-08-23 11:33] LABS: Absolute Neutrophil Ct (ANC) 3.57 (1.4-6.9); BASOPHIL % 0.2 % (0.0-0.4); Basophil (Absolute #) 0.01 (0-0.4); Eosinophil % 1.2 % (0.00-5.0); Eosinophil (Absolute #) 0.06 (0-0.5); Hematocrit 32.7 % (35-47); Hemoglobin 10.4 gm/dl (12.0-16.0); Lymphocyte (Absolute #) 0.99 (1.0-4.6); Lymphocytes % 19.5 % (24.0-44.0); Mean Cell Volume 107.9 fl (78-100); Mean Corpuscular Hemoglobin 34.3 pg (26-32); Mean Corpuscular Hgb Concent. 31.8 g/dl (32-36); Monocyte (Absolute #) 0.44 (0.0-1.3); Monocytes % 8.7 % (0.0-12.0); Neutrophil % 70.4 % (36.0-66.0); Platelet Count 110 K/mm3 (150-450); Red Blood Count 3.03 M/mm3 (4.1-5.4); Red Cell Distribution Width 13.2 % (11.5-14.0); White Blood Count 5.1 K/mm3 (4.0-10.5)
[2020-08-23] MEDS ORDERED: Miralax Powder 17GM PACKET PO PRN (12:04)
[2020-08-23 12:08] LABS: ALBUMIN 3.1 g/dL (3.5-5.0); ANION GAP 13.9 MEQ/L (5-15); BILIRUBIN,TOTAL 0.3 mg/dL (0.2-1.3); Calcium 7.2 mg/dL (8.4-10.2); Creatinine 1 4.81 mg/dL (0.52-1.04); EST GLOMERULAR FILTRATION RATE 9.1 ML/MIN; Potassium 4.5 mmol/L (3.5-5.1); Total Protein 5.7 g/dL (6.3-8.2)
[2020-08-23] MEDS: Zofran 4 MG/2 ML VIAL IV PRN (12:23)
[2020-08-23] MEDS: MORPHINE SULFATE 2 MG INJ IV PRN (12:24)
--- NOTE | 2020-08-23 12:51 | XRAY ---
Indication: Rehabilitation stay. Comparison: January 27, 2020. Portable chest demonstrates new inferior right upper lobe subsegmental atelectasis/scarring. No focal infiltrate, consolidation, or large effusion. Heart is now borderline enlarged. Bony thorax intact again with mild osteopenia and mild degenerative changes. Impression: Nonacute chest with chronic features.
[2020-08-23] MEDS: Sodium Chloride 0.9% 1000 ML 1,000 ML IV SCH (16:00)
[2020-08-23 16:07] VITALS: BP 131/52; PULSE 56; O2SAT 93
--- NOTE | 2020-08-23 19:52 | PCM.DS ---
Discharge Summary Date of Admission: 08/21/20 16:15 Admitting Physician: MARLO BROOKS Primary Care Provider: MARLO BROOKS Allergies Allergies cephalexin Adverse Reaction (Verified 08/07/18 11:32) dextromethorphan [From Mucinex DM] Adverse Reaction (Verified 08/07/18 11:32) guaifenesin [From Mucinex DM] Adverse Reaction (Verified 08/07/18 11:32) Hospital Summary - Hospital Course Hospital Course: Chief Complaint Diagnosis htn, back pain Allergies Allergy/AdvReac Type Severity Reaction Status Date / Time cephalexin AdvReac Verified 08/07/18 11:32 dextromethorphan AdvReac Verified 08/07/18 11:32 [From Mucinex DM] guaifenesin [From Mucinex DM] AdvReac Verified 08/07/18 11:32 Vital Signs (Last 24 hours) Temp Pulse Resp BP Pulse Ox 08/23/20 16:06 97.9 F 56 L 20 131/52 93 L 08/23/20 13:00 98.1 F 65 20 125/53 95 08/23/20 08:57 98.0 F 60 18 132/59 98 08/23/20 08:17 90 L 08/23/20 04:09 98.2 F 60 22 176/72 97 08/22/20 23:45 98.2 F 63 20 133/74 97 08/22/20 22:40 94 L 08/22/20 20:24 95 Home Medications Medication Instructions Recorded Confirmed Last Taken Type Amlodipine Besylate 10 mg PO DAILY 08/21/20 08/21/20 08/20/20 History HydrALAzine HCL 25 MG TAB 50 mg PO TID 08/21/20 08/21/20 08/21/20 History [Apresoline 25 MG TABLET] Acetaminophen 325 mg [Tylenol 650 mg PO Q4H PRN PRN tablet 08/22/20 Unknown Rx 325 mg] Current Medications Discontinued Medications Generic Name Dose Route Start Last Admin Trade Name Freq PRN Reason Stop Dose Admin Acetaminophen 650 mg 08/21/20 16:19 08/21/20 23:47 Tylenol 325 Mg PO 09/20/20 16:18 650 mg Q4H PRN PRN Administration PAIN AND/OR FEVER Allopurinol 100 mg 08/22/20 10:00 08/23/20 09:10 Zyloprim 100 Mg PO 09/21/20 09:59 100 mg DAILY BRYCE Administration Amlodipine Besylate 10 mg 08/22/20 10:00 08/23/20 09:09 Norvasc 5 Mg PO 09/21/20 09:59 10 mg DAILY BRYCE Administration Aspirin 81 mg 08/22/20 10:00 08/23/20 09:10 Ecotrin 81 Mg PO 09/21/20 09:59 81 mg DAILY BRYCE Administration Bisacodyl 10 mg 08/22/20 21:12 Dulcolax 10 Mg Supp [place] 09/21/20 21:11 QDP PRN CONSTIPATION Carvedilol 25 mg 08/21/20 22:00 08/23/20 09:10 Coreg 12.5 Mg PO 09/20/20 21:59 25 mg BID BRYCE Administration Famotidine 20 mg 08/21/20 22:00 08/23/20 09:10 Pepcid 20 Mg Vial IV 09/20/20 21:59 20 mg Q12HT BRYCE Administration Furosemide 20 mg 08/22/20 10:00 08/23/20 09:10 Lasix 20 Mg PO 09/21/20 09:59 20 mg DAILY BRYCE Administration Glimepiride 1 mg 08/22/20 10:00 08/23/20 09:10 Amaryl 2 Mg PO 09/21/20 09:59 1 mg DAILY BRYCE Administration Hydralazine HCl 10 mg 08/21/20 13:08 08/21/20 13:24 Apresoline 20 Mg/Ml Inj IV 08/21/20 13:09 10 mg STAT ONE Administration Hydralazine HCl Confirm 08/21/20 13:22 Apresoline 20 Mg/Ml Inj Administered 08/21/20 13:23 Dose 20 mg .ROUTE .STK-MED ONE Hydralazine HCl 10 mg 08/21/20 15:07 08/21/20 15:13 Apresoline 20 Mg/Ml Inj IV 08/21/20 15:08 10 mg STAT ONE Administration Hydralazine HCl Confirm 08/21/20 15:11 Apresoline 20 Mg/Ml Inj Administered 08/21/20 15:12 Dose 20 mg .ROUTE .STK-MED ONE Hydralazine HCl 10 mg 08/21/20 16:19 08/22/20 15:54 Apresoline 20 Mg/Ml Inj IV 09/20/20 16:18 10 mg Q4H PRN PRN Administration HYPERTENSION Hydralazine HCl 50 mg 08/21/20 22:00 08/23/20 15:15 Apresoline 25 Mg Tablet PO 09/20/20 21:59 50 mg TID BRYCE Administration Sodium Chloride 1,000 mls @ 30 mls/hr 08/22/20 13:30 08/23/20 16:00 Sodium Chloride 0.9% 1000 Ml IV 09/21/20 13:29 Not Given .Q24H BRYCE Insulin Human Lispro 0 unit 08/21/20 16:19 Humalog SQ 09/20/20 16:18 UD PRN HYPERGLYCEMIA Isosorbide Mononitrate 60 mg 08/22/20 10:00 08/23/20 09:10 Imdur 60mg PO 09/21/20 09:59 60 mg DAILY BRYCE Administration Lidocaine 1 patch 08/22/20 10:00 08/23/20 09:08 Lidoderm Patch 5% TOP 09/21/20 09:59 1 patch DAILY BRYCE Administration Metoprolol Tartrate 5 mg 08/22/20 18:00 Lopressor 5 Mg/5 Ml Injection IV 09/21/20 17:59 Q12H BRYCE Metoprolol Tartrate 5 mg 08/22/20 20:00 08/23/20 09:14 Lopressor 5 Mg/5 Ml Injection IV 09/21/20 19:59 Not Given Q12H BRYCE Morphine Sulfate 4 mg 08/21/20 10:53 08/21/20 11:16 Morphine Sulfate 4 Mg Inj IV 08/21/20 10:54 4 mg STAT ONE Administration Morphine Sulfate Confirm 08/21/20 11:15 Morphine Sulfate 4 Mg Inj Administered 08/21/20 11:16 Dose 4 mg .ROUTE .STK-MED ONE Morphine Sulfate 2 mg 08/21/20 15:09 08/21/20 15:13 Morphine Sulfate 2 Mg Inj IV 08/21/20 15:10 2 mg STAT ONE Administration Morphine Sulfate Confirm 08/21/20 15:11 Morphine Sulfate 2 Mg Inj Administered 08/21/20 15:12 Dose 2 mg .ROUTE .STK-MED ONE Morphine Sulfate 2 mg 08/21/20 16:19 08/23/20 12:24 Morphine Sulfate 2 Mg Inj IV 08/26/20 16:18 2 mg Q4H PRN PRN Administration PAIN Morphine Sulfate Confirm 08/22/20 04:38 Morphine Sulfate 2 Mg Inj Administered 08/22/20 04:39 Dose 2 mg .ROUTE .STK-MED ONE Non-Formulary Medication 1 each 08/22/20 22:00 08/22/20 21:44 Remove Patch Reminder TOP 09/21/20 21:59 1 each HS BRYCE Administration Ondansetron HCl 4 mg 08/21/20 10:53 08/21/20 11:16 Zofran 4 Mg/2 Ml Vial IV 08/21/20 10:54 4 mg STAT ONE Administration Ondansetron HCl Confirm 08/21/20 11:15 Zofran 4 Mg/2 Ml Vial Administered 08/21/20 11:16 Dose 4 mg .ROUTE .STK-MED ONE Ondansetron HCl 4 mg 08/21/20 16:19 08/23/20 12:23 Zofran 4 Mg/2 Ml Vial IV 09/20/20 16:18 4 mg Q6H PRN PRN Administration NAUSEA/VOMITING Polyethylene Glycol 17 gm 08/23/20 12:04 08/23/20 12:23 Miralax Powder 17gm Packet PO 09/23/20 09:59 17 gm DAILY PRN Administration CONSTIPATION Simvastatin 20 mg 08/21/20 22:00 08/22/20 21:47 Zocor 20mg PO 09/20/20 21:59 20 mg HS BRYCE Administration Intake & Output (Last 24 hours) 08/21/20 08/22/20 08/23/20 08/24/20 11:59 11:59 11:59 11:59 Intake Total 1040 983 240 Output Total 500 900 Balance 540 83 240 Weight 61.4 kg 61.6 kg Microbiology Results (Last 24 hours) 08/21/20 17:02 Urine, Void Urine Culture - Final <10K NORMAL SKIN MARGARET PROBABLE SKIN CONTAMINANT Laboratory Results (Last 24 hours) 08/23/20 08/23/20 08/23/20 15:49 11:10 11:10 WBC 5.1 RBC 3.03 L Hgb 10.4 L Hct 32.7 L MCV 107.9 H MCH 34.3 H MCHC 31.8 L RDW 13.2 Plt Count 110 L MPV 11.0 Gran % 70.4 H Eos # (Auto) 0.06 Absolute Lymphs (auto) 0.99 L Absolute Monos (auto) 0.44 Lymphocytes % 19.5 L Monocytes % 8.7 Eosinophils % 1.2 Basophils % 0.2 Absolute Granulocytes 3.57 Basophils # 0.01 Sodium 134 L Potassium 4.5 Chloride 103 Carbon Dioxide 21 L Anion Gap 13.9 BUN 77 H Creatinine 4.81 H Estimated GFR 9.1 Glucose 151 H POC Glucometer 149 H Calcium 7.2 L Total Bilirubin 0.30 AST 44 H ALT 34 Alkaline Phosphatase 73 Serum Total Protein 5.7 L Albumin 3.1 L 08/23/20 08/23/20 08/22/20 10:43 06:39 21:31 WBC RBC Hgb Hct MCV MCH MCHC RDW Plt Count MPV Gran % Eos # (Auto) Absolute Lymphs (auto) Absolute Monos (auto) Lymphocytes % Monocytes % Eosinophils % Basophils % Absolute Granulocytes Basophils # Sodium Potassium Chloride Carbon Dioxide Anion Gap BUN Creatinine Estimated GFR Glucose POC Glucometer 147 H 142 H 121 H Calcium Total Bilirubin AST ALT Alkaline Phosphatase Serum Total Protein Albumin Orders (Last 24 hours) Category Date Time Status CO2 Monitoring ROUTINE Care 08/22/20 20:24 Active Discharge Routine Discharge 08/23/20 Ordered CHEST 1 VIEW (PORTABLE) Urgent Exams 08/23/20 12:15 Completed CBC W DIFF Routine Lab 08/23/20 11:10 Completed CMP Routine Lab 08/23/20 11:10 Completed POCT GLUCOSE Stat Lab 08/22/20 21:31 Completed POCT GLUCOSE Stat Lab 08/23/20 06:39 Completed POCT GLUCOSE Stat Lab 08/23/20 10:43 Completed POCT GLUCOSE Stat Lab 08/23/20 15:49 Completed Bisacodyl 10 mg [Dulcolax 10 MG SUPP] Med 08/22/20 21:12 Discontinued 10 mg [place] QDP PRN Metoprolol Tartrate 5 mg/5 ml* [Lopressor 5 mg/5 ml Med 08/22/20 20:00 Discontinued Injection] 5 mg IV Q12H Polyethylene Glycol 3350 17 gm [Miralax Powder 17GM Med 08/23/20 12:04 Discontinued PACKET] 17 gm PO DAILY PRN Remove Patch [Remove Patch Reminder] Med 08/22/20 22:00 Discontinued 1 each TOP HS Oxygen NASAL CANNULA 2 lpm RT 08/22/20 20:24 Active Pulse Oximetry .continuos RT 08/22/20 20:22 Active Patient Care Notes (Last 24 hours) 08/23/20 17:20 Physical Therapy Note by Jolynn Gilliland PT. REPORTS LBP AT 7/10. NO VOMITING TODAY, BUT HAS HAD MILD NAUSEA. PLAN IS TO D/C TO [facility] REHAB. PT. IS IN BED UPON PT ARRIVAL TO ROOM. SUPINE TO SIT CGA-SBA. SIT TO STAND CGA-MIN ASSIST. AMBULATED ~ 80' W/ ROLLATOR AND CGA-SBA. NOTED EVEN AND NL STRIDE LENGTH AND WIDE JENNY. BETTER SAFETY AWARENESS W/ POSITIONING OF FEET IN WALKER AND LESS ERRATIC W/ TURNS. PT. NOTES SLIGHT INCREASED LBP W/ WB. APPLIED CP TO LB AFTER RX. TO CONT. PT IN SNF. JOLYNN GILLILAND PT Initialized on 08/23/20 17:20 - END OF NOTE 08/23/20 16:44 Nursing Note by Margarette Dimas called pt's silas and sister to let them know pt is going to [facility], neither answered phone and message left for sisterSusanna. Initialized on 08/23/20 16:44 - END OF NOTE 08/23/20 12:09 Nursing Note by Margarette Dimas pt c/o constipation, refused dulcolax supp Initialized on 08/23/20 12:09 - END OF NOTE 08/23/20 11:55 (created 08/23/20 12:18) Pharmacy Note by Margarette Dimas DR. ROUNDED ON PT, WOULD LIKE FOR PT TO GET A REHAB STAY FOR PT IF POSSIBLE. Initialized on 08/23/20 12:18 - END OF NOTE 08/23/20 09:25 Case Management Note by Lisa Young PATIENT ADAMANTLY REFUSED [facility] TO THIS NURSE AND PHYSICAL THERAPY . ORDER FOR WALKER SENT TO [facility] TO BE DELIVERED TO PATIENT'S HOME. PATIENT WAS NOT ENTHUSIASTIC TO USE WALKER HOWEVER- WAS ENCOURAGED TO DO SO UNTIL PATIENT RECOVERS FROM BACK PAIN. SHE VERIFIED UNDERSTANDING Initialized on 08/23/20 09:25 - END OF NOTE 08/23/20 07:33 Nursing Note by Margarette Dimas placed on RA Initialized on 08/23/20 07:33 - END OF NOTE 08/22/20 21:08 (created 08/22/20 21:09) Nursing Note by Jolynn Kline 2107- Dr. Brooks returned call and was notified of change in condition. New order received to hold lopressor IV tonight and prn Dulcolax suppository for constipation. Continue continuous pulse ox, CO2 monitor, and oxygen. Initialized on 08/22/20 21:09 - END OF NOTE 08/22/20 20:52 (created 08/22/20 20:58) Nursing Note by Jolynn Kline 2051- Attempted to reach Dr. Brooks for an update on pt. No answer on cell phone and voice message was left for to return call at this time. Initialized on 08/22/20 20:58 - END OF NOTE 08/22/20 20:20 (created 08/22/20 21:00) Nursing Note by Jolynn Kline 2019- Pt drowsy during shift assessment. Pt wakes up and answers questions appropriately, but closes eyes soon after verbal stimulus is stopped. Heart rate is in the 50's at this time. This nurse placed patient on a continuous pulse oximeter and O2 sat were 87% on RA. O2 at 2L was initiated at this time and RT Jocelyn Faulkner was notified. Jose Faulkner started patient on a continuous CO2 monitor at this time due to drowsiness. Pt is c/o needing to have a BM but doesn't want to take a laxative at bedtime. Pt is unsure of her last BM but states that she hasn't had a BM since admission. 2029- This nurse attempted to notify Dr. Brooks per cell phone but got voice mailbox at this time. Did not leave a message for at this time. Initialized on 08/22/20 21:00 - END OF NOTE - Vitals & Intake/Output Vital Signs: Vital Signs Temperature 97.9 F 08/23/20 16:06 Pulse Rate 56 L 10/06/20 16:06 Respiratory Rate 20 08/23/20 16:06 Blood Pressure 131/52 08/23/20 16:06 O2 Sat by Pulse Oximetry 93 L 08/23/20 16:06 Intake & Output: Intake & Output 08/21/20 08/22/20 08/23/20 08/24/20 11:59 11:59 11:59 11:59 Intake Total 1040 983 240 Output Total 500 900 Balance 540 83 240 Weight 61.4 kg 61.6 kg - Lab Result Diagrams: 08/23/20 11:10 08/23/20 11:10 Lab Results-Last 24 Hrs: Lab Results-Last 24 Hours 08/22/20 08/23/20 08/23/20 Range/Units 21:31 06:39 10:43 WBC (4.0-10.5) K/mm3 RBC (4.1-5.4) M/mm3 Hgb (12.0-16.0) gm/dl Hct (35-47) % MCV (78-100) fl MCH (26-32) pg MCHC (32-36) g/dl RDW (11.5-14.0) % Plt Count (150-450) K/mm3 MPV (7.5-11.0) fl Gran % (36.0-66.0) % Eos # (Auto) (0-0.5) Absolute Lymphs (auto) (1.0-4.6) Absolute Monos (auto) (0.0-1.3) Lymphocytes % (24.0-44.0) % Monocytes % (0.0-12.0) % Eosinophils % (0.00-5.0) % Basophils % (0.0-0.4) % Absolute Granulocytes (1.4-6.9) Basophils # (0-0.4) Sodium (137-145) mmol/L Potassium (3.5-5.1) mmol/L Chloride (98-107) mmol/L Carbon Dioxide (22-30) mmol/L Anion Gap (5-15) MEQ/L BUN (7-17) mg/dL Creatinine (0.52-1.04) mg/dL Estimated GFR ML/MIN Glucose (74-106) mg/dL POC Glucometer 121 H 142 H 147 H (74 to 106) mg/dL Calcium (8.4-10.2) mg/dL Total Bilirubin (0.2-1.3) mg/dL AST (14-36) U/L ALT (0-35) U/L Alkaline Phosphatase (38-126) U/L Serum Total Protein (6.3-8.2) g/dL Albumin (3.5-5.0) g/dL 08/23/20 08/23/20 08/23/20 Range/Units 11:10 11:10 15:49 WBC 5.1 (4.0-10.5) K/mm3 RBC 3.03 L (4.1-5.4) M/mm3 Hgb 10.4 L (12.0-16.0) gm/dl Hct 32.7 L (35-47) % MCV 107.9 H (78-100) fl MCH 34.3 H (26-32) pg MCHC 31.8 L (32-36) g/dl RDW 13.2 (11.5-14.0) % Plt Count 110 L (150-450) K/mm3 MPV 11.0 (7.5-11.0) fl Gran % 70.4 H (36.0-66.0) % Eos # (Auto) 0.06 (0-0.5) Absolute Lymphs (auto) 0.99 L (1.0-4.6) Absolute Monos (auto) 0.44 (0.0-1.3) Lymphocytes % 19.5 L (24.0-44.0) % Monocytes % 8.7 (0.0-12.0) % Eosinophils % 1.2 (0.00-5.0) % Basophils % 0.2 (0.0-0.4) % Absolute Granulocytes 3.57 (1.4-6.9) Basophils # 0.01 (0-0.4) Sodium 134 L (137-145) mmol/L Potassium 4.5 (3.5-5.1) mmol/L Chloride 103 (98-107) mmol/L Carbon Dioxide 21 L (22-30) mmol/L Anion Gap 13.9 (5-15) MEQ/L BUN 77 H (7-17) mg/dL Creatinine 4.81 H (0.52-1.04) mg/dL Estimated GFR 9.1 ML/MIN Glucose 151 H (74-106) mg/dL POC Glucometer 149 H (74 to 106) mg/dL Calcium 7.2 L (8.4-10.2) mg/dL Total Bilirubin 0.30 (0.2-1.3) mg/dL AST 44 H (14-36) U/L ALT 34 (0-35) U/L Alkaline Phosphatase 73 (38-126) U/L Serum Total Protein 5.7 L (6.3-8.2) g/dL Albumin 3.1 L (3.5-5.0) g/dL Micro Results-Entire Visit: Microbiology 08/21/20 17:02 Urine Culture - Final Urine, Void <10K NORMAL SKIN MARGARET PROBABLE SKIN CONTAMINANT Accuchecks Date 08/23/20 Date 08/22/20 Time 16:02 Time 21:32 - Radiology Exams Ordered Rad Exams-Entire Visit: Radiology Procedures Category Date Time Status CHEST 1 VIEW (PORTABLE) Urgent Exams 08/23/20 12:15 Completed - Procedures and Test Procedures and Tests throughout Hospitalization: Therapy Orders & Screens 08/22/20 08:27 PT Eval & Treat (MD Order) ONCE Reason for Eval:: persistant back pain, difficulty ambulating Diagnosis: htn, back pain 08/22/20 20:24 Oxygen NASAL CANNULA 2 lpm Comment: Diagnosis: htn, back pain Discharge Exam General Appearance: no apparent distress, alert Neurologic Exam: alert, oriented x 3, cooperative, normal mood/affect, nml cerebellar function, sensation nml, No motor deficits Eye Exam: PERRL, EOMI, eyes nml inspection Ears, Nose, Throat Exam: normal ENT inspection, pharynx normal, moist mucous membranes Neck Exam: normal inspection, non-tender, supple, full range of motion Respiratory Exam: normal breath sounds, lungs clear, No respiratory distress Cardiovascular Exam: regular rate/rhythm, normal heart sounds Gastrointestinal/Abdomen Exam: soft, No tenderness, No mass Pelvic Exam: deferred Rectal Exam: deferred Back Exam: normal inspection, normal range of motion, No CVA tenderness, No vertebral tenderness Extremity Exam: normal inspection, normal range of motion Skin Exam: normal color, warm, dry Final Diagnosis/Problem List - Final Discharge Diagnosis/Problem (1) Low back pain Status: Acute Code(s): M54.5 - LOW BACK PAIN (2) ESRD (end stage renal disease) Status: Chronic Code(s): N18.6 - END STAGE RENAL DISEASE (3) Hypertensive urgency Status: Resolved Code(s): I16.0 - HYPERTENSIVE URGENCY (4) Chronic renal insufficiency Status: Chronic Onset Date: ~08/03/18 Code(s): N18.9 - CHRONIC KIDNEY DISEASE, UNSPECIFIED (5) Diabetes Status: Chronic Code(s): E11.9 - TYPE 2 DIABETES MELLITUS WITHOUT COMPLICATIONS (6) Hypertension Status: Chronic Onset Date: ~08/03/18 Code(s): I10 - ESSENTIAL (PRIMARY) HYPERTENSION (7) Stage 5 chronic kidney disease Status: Chronic Code(s): N18.5 - CHRONIC KIDNEY DISEASE, STAGE 5 - Discharge Discharge Date: 08/23/20 Disposition: [facility] Condition: Stable Prescriptions: New Acetaminophen 325 mg [Tylenol 325 mg] 650 mg PO Q4H PRN PRN tablet PRN Reason: Pain And/Or Fever Continue Isosorbide Mononitrate [Isosorbide Mononitrate ER] 60 mg PO DAILY Aspirin 81 mg PO DAILY Allopurinol 100 mg [Zyloprim 100 mg] 100 mg PO DAILY Furosemide 20 mg [Lasix 20 mg] 20 mg PO DAILY Atorvastatin Calcium [Lipitor] 20 mg PO HS Glimepiride 1 mg PO DAILY carvediloL [Carvedilol] 25 mg PO BID Amlodipine Besylate 10 mg PO DAILY HydrALAzine HCL 25 MG TAB [Apresoline 25 MG TABLET] 50 mg PO TID Additional Instructions: [facility] ORDERS: --PT HAS DIALYSIS ON SATURDAY AND SATURDAY @11:00am @ [facility] IN [place] ([phone]) --PT/OT EVAL AND TREAT --[facility] --SEE ATTACHED MEDICATION LIST FOR MEDICATION ORDERS. --1800 [address] DIABETIC DIET --[facility] WILL BE DELIVERING YOUR WALKER TO YOUR HOUSE WHEN DISCHARGED HOME--THEIR PHONE NUMBER IS [phone] Follow up with: MARLO BROOKS MD [Primary Care Provider] - 1 Week
== END 2020-08-23 17:00 ==
LOC: ED 10:11 → MED SURG 16:15
PROVIDERS: ADMIT General Practice; ATTEND General Practice
DX: M54.5 Low back pain (principal); I12.0 Hypertensive chronic kidney disease with stage 5 chronic kidney disease or end stage renal disease; E11.22 Type 2 diabetes mellitus with diabetic chronic kidney disease; N18.6 End stage renal disease; I16.0 Hypertensive urgency; Z79.899 Other long term (current) drug therapy; E78.5 Hyperlipidemia, unspecified
CPT/HCPCS: 36415; 71045; 80053; 81001; 82150; 82962; 83036; 83690; 85025; 87086; 93268; 94762; 94770; 96374; 96375; 96376; 97161; 97530; 99291; G0378; 99284; J0360; J2270; J2405; A9270-GY